=== PATIENT | male | born 1975 | race Caucasian/White ===

== ENCOUNTER 2024-10-26 11:08 | Inpatient (IN) | payer OTHER, SELFPAY ==
[2024-10-26] VITALS (35 sets, daily range): BP systolic 137–208; BP diastolic 88–129; PULSE 74–110; TEMP 36.4–37.2; O2SAT 83–97; BMI 42.5; BMI 40.0
--- NOTE | 2024-10-26 11:32 | ECG_ITS ---
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
--- NOTE | 2024-10-26 11:32 | XR_ITS ---
The [place] [id number] Patient Name: AUBRIE SWEENEY MRN: [id number] date: 1975 Sex: M Assigned Patient Location: ER Current Patient Location: ER Accession/Order Number: [id number] Exam Date: 10/26/2024 11:56 Report Date: 10/26/2024 12:10 At the request of: JT SHERMAN Procedure: XR chest 1V EXAMINATION: XR chest 1V HISTORY: SOB, poss CHF COMPARISON: No relevant comparison available. FINDINGS: LUNGS: Underexpanded lungs with mild haziness within lateral lung bases. VASCULATURE: No increased pulmonary vasculature. PLEURA: No pneumothorax, effusion, or pleural thickening. CARDIAC: Mild cardiomegaly. MEDIASTINUM: No visible mass or adenopathy. BONES: No fracture or visible bone lesion. OTHER: Negative. XR/XR chest 1V IMPRESSION: 1. Mild bibasilar infiltrates versus atelectasis. Electronically authenticated by: DANICA HADDAD Date: 10/26/2024 12:10
--- NOTE | 2024-10-26 11:34 | ED.GENADUL1 ---
HPI HPI - General Adult General Chief complaint: Shortness of Breath/Dyspnea Stated complaint: HIP PAIN SOB Time Seen by Provider: 10/26/24 11:27 Source: patient Mode of arrival: Wheelchair Limitations: no limitations History of Present Illness HPI narrative: 49-year-old male presents for shortness of breath and swelling in his legs and abdomen and face. This has been progressive over what appears to be several weeks and it has been more than 20 years since he seen a physician. He has not had a fever or productive cough. He has noticed a great deal of weight gain and he gets short of breath with exertion. He is worried about heart failure. He is not complaining of chest pain. Related Data Home Medications ?Medication ?Instructions ?Recorded ?Confirmed No Known Home Medications 10/26/24 10/26/24 Allergies Allergy/AdvReac Type Severity Reaction Status Date / Time No Known Drug Allergies Allergy Verified 10/26/24 11:16 Opioid HPI Opioid Management Most Recent Opioid Data: No Data to Display Review of Systems ROS Narrative A ten point review of systems is negative except as noted above. Exam Narrative Exam Narrative: Nurses note and vital signs reviewed and patient is not hypoxic. General: The patient appear in no apparent distress. Skin: Warm, dry, no pallor noted. There is no rash noted. Head: Normocephalic, atraumatic Eye: Normal conjunctiva, no drainage, edema below each eye Ears, Nose, Mouth, and Throat: oral mucosa is moist. Nares patent. Cardiovascular: Regular Rate and Rhythm Respiratory: He appears dyspneic and has no rales or rhonchi noted Back: non-tender GI: Globus, edematous Musculoskeletal: Bilateral lower extremity edema. Neurological: A&O, normal speech Psychiatric: Cooperative Constitutional Vital Signs, click to edit/add: Last Vital Signs Temp 99.0 F 10/26/24 11:16 Pulse 74 10/26/24 13:00 Resp 36 H 10/26/24 13:00 BP 156/107 H 10/26/24 13:00 Pulse Ox 96 10/26/24 12:46 O2 Del Method Nasal Cannula 10/26/24 11:52 O2 Flow Rate 4 10/26/24 11:52 Course Vital Signs Vital signs: Vital Signs Temperature 99.0 F 10/26/24 11:16 Pulse Rate 98 H 10/26/24 11:16 Respiratory Rate 24 H 10/26/24 11:16 Blood Pressure 196/116 H 10/26/24 11:16 Pulse Oximetry 83 L 10/26/24 11:16 Oxygen Delivery Method Room Air 10/26/24 11:16 Temperature 99.0 F 10/26/24 11:16 Pulse Rate 74 10/26/24 13:00 Respiratory Rate 36 H 10/26/24 13:00 Blood Pressure 156/107 H 10/26/24 13:00 Pulse Oximetry 96 10/26/24 12:46 Oxygen Delivery Method Nasal Cannula 10/26/24 11:52 Oxygen Delivery Flow Rate 4 10/26/24 11:52 Medical Decision Making MDM Narrative Medical decision making narrative: My clinical impression is that he has CHF. He has significant edema in his legs and his abdominal wall. He will be admitted. Initial troponin was 108, the repeat is 121. BNP is elevated. I have spoken to Dr. Zavala and the plan is for a Bumex drip. Treatment diagnosis and disposition were discussed with the patient. The patient's blood pressure was also elevated here and he was given IV labetalol. Differential Diagnosis Differential Diagnosis: CHF, pulmonary edema, acute kidney injury Lab Data Lab results reviewed: Yes I reviewed the patient's lab results Labs: Lab Results 10/26/24 10/26/24 Range/Units 11:45 12:52 WBC 8.6 (4.0-11.0) 10^3/uL RBC 4.43 L (4.70-6.10) 10^6/uL Hgb 13.9 L (14.0-18.0) g/dL Hct 44.9 (42.0-54.0) % MCV 101.4 H (80.0-94.0) fL MCH 31.4 (25.9-34.0) pg MCHC 31.0 (29.9-35.2) g/dL RDW 12.5 (11.0-15.0) % Plt Count 356 (150-450) 10^3/uL MPV 9.8 (9.5-13.5) fL Neut % (Auto) 75.7 H (43.0-75.0) % Lymph % (Auto) 12.8 L (20.5-60.0) % [place] % (Auto) 9.1 (1.7-12.0) % Eos % (Auto) 1.4 (0.9-7.0) % Baso % (Auto) 0.8 (0.2-2.0) % Neut # (Auto) 6.5 (1.4-6.5) 10^3/uL Lymph # (Auto) 1.1 L (1.2-3.8) 10^3/uL [place] # (Auto) 0.8 (0.3-0.8) 10^3/uL Eos # (Auto) 0.1 (0.0-0.7) 10^3/uL Baso # (Auto) 0.1 (0.0-0.1) 10^3/uL Abs Immat Gran (auto) 0.02 (0.00-0.03) 10^3/uL Imm/Tot Granulo (auto) 0.2 (0.0-0.5) % Sodium 139 (136-145) mmol/L Potassium 4.1 (3.5-5.1) mmol/L Chloride 100 (98-107) mmol/L Carbon Dioxide 36.3 H (21.0-32.0) mmol/L Anion Gap 6.8 BUN 20.0 H (7.0-18.0) mg/dL Creatinine 1.03 (0.70-1.30) mg/dL Est GFR ( Amer) >60 (>=60 mL/min/1.73m^2) Est GFR (Non-Af Amer) >60 (>=60 mL/min/1.73m^2) BUN/Creatinine Ratio 19.4 Glucose 100 (74-106) mg/dL Calcium 8.7 (8.5-10.1) mg/dL Total Bilirubin 0.4 (0.2-1.0) mg/dL Direct Bilirubin 0.1 (0.0-0.2) mg/dL AST 30 (15-37) U/L ALT 36 (16-63) U/L Alkaline Phosphatase 126 H (46-116) U/L Troponin I High Sens 108.6 H* 121.3 H* (4.0-76.1) pg/mL NT-Pro-B Natriuret Pep 7797.0 H* (<=900.0) pg/mL Total Protein 7.3 (6.4-8.2) g/dL Albumin 3.4 (3.4-5.0) g/dL Globulin 3.9 g/dL Albumin/Globulin Ratio 0.9 Imaging Data Chest x-ray: Radiologist's impression: ITS Impressions Chest X-Ray 10/26/24 11:32 IMPRESSION: 1. Mild bibasilar infiltrates versus atelectasis. Electronically authenticated by: DANICA HADDAD Date: 10/26/2024 12:10 ECG Data Attestation: I personally reviewed and interpreted this ECG as follows: (EKG on my interpretation shows normal sinus rhythm without acute change and a rate of 85) Critical Care Time Critical Care Time Critical Care Time: Yes Total Critical Care Time: 35 Attestation: Due to the high probability of sudden and clinically significant deterioration in the patient's condition he/she required the highest level of my preparedness to intervene urgently I provided critical care time including documentation time, medication orders and management, reevaluation, vital sign assessment, ordering and reviewing of lab tests, ordering and reviewing of x-ray studies, and admission orders. Aggregate critical care time is 35 minutes including only time during which I was engaged in work directly related to his/her care and did not include time spent treating other patients simultaneously. Discharge Plan Discharge Chief Complaint: Shortness of Breath/Dyspnea Clinical Impression: Congestive heart failure Patient Disposition: Admitted As Inpatient Time of Disposition Decision: 13:23 Condition: Fair
--- NOTE | 2024-10-26 11:53 | PC.NURSE ---
oxygen started after finding pt oxygen levels in the 80's
[2024-10-26 12:04] LABS: Basophils Absolute Auto 0.1 10^3/uL (0.0-0.1); Basophils Percent Auto 0.8 % (0.2-2.0); Eosinophils Absolute Auto 0.1 10^3/uL (0.0-0.7); Eosinophils Percent Auto 1.4 % (0.9-7.0); Hematocrit 44.9 % (42.0-54.0); Hemoglobin 13.9 g/dL (14.0-18.0); Immature Granulocytes Abs Auto 0.02 10^3/uL (0.00-0.03); Immature Granulocytes Pct Auto 0.2 % (0.0-0.5); Lymphocytes Absolute Auto 1.1 10^3/uL (1.2-3.8); Lymphocytes Percent Auto 12.8 % (20.5-60.0); Mean Corpuscular Hemoglobin 31.4 pg (25.9-34.0); Mean Corpuscular Volume 101.4 fL (80.0-94.0); Mean Platelet Volume 9.8 fL (9.5-13.5); Monocytes Absolute Auto 0.8 10^3/uL (0.3-0.8); Monocytes Percent Auto 9.1 % (1.7-12.0); Neutrophils Absolute Auto 6.5 10^3/uL (1.4-6.5); Neutrophils Percent Auto 75.7 % (43.0-75.0); Platelet Count 356 10^3/uL (150-450); Red Blood Count 4.43 10^6/uL (4.70-6.10); Red Cell Distribution Width 12.5 % (11.0-15.0); White Blood Count 8.6 10^3/uL (4.0-11.0)
[2024-10-26 12:19] LABS: Anion Gap 6.8; BUN Creatinine Ratio 19.4; Calcium 8.7 mg/dL (8.5-10.1); Carbon Dioxide 36.3 mmol/L (21.0-32.0); Chloride 100 mmol/L (98-107); Estimated GFR (African America >60 (>=60 mL/min/1.73m^2); Estimated GFR (Non-African Ame >60 (>=60 mL/min/1.73m^2); Glucose 100 mg/dL (74-106); Potassium 4.1 mmol/L (3.5-5.1); Sodium 139 mmol/L (136-145)
[2024-10-26 12:26] LABS: Alanine Aminotransferase 36 U/L (16-63); Albumin Globulin Ratio 0.9; Albumin Level 3.4 g/dL (3.4-5.0); Alkaline Phosphatase 126 U/L (46-116); Aspartate Amino Transferase 30 U/L (15-37); Bilirubin Direct 0.1 mg/dL (0.0-0.2); Bilirubin Total 0.4 mg/dL (0.2-1.0); Globulin 3.9 g/dL; Total Protein 7.3 g/dL (6.4-8.2)
[2024-10-26 12:27] LABS: Troponin I High Sensitivity 108.6 pg/mL (4.0-76.1)
[2024-10-26] MEDS: ASPIRIN 81 MG TAB.CHEW 324 MG PO (12:50)
[2024-10-26] MEDS: LABETALOL HCL 20 MG/4 ML SYRINGE 10 MG IVP (12:51)
[2024-10-26 13:20] LABS: Troponin I High Sensitivity 121.3 pg/mL (4.0-76.1)
--- NOTE | 2024-10-26 13:43 | P.HP_ITS ---
HPI H&P: HPI History of Present Illness Chief complaint: HIP PAIN SOB Narrative: Patient with a long hand standing history of smoking but did quit fairly recently, has noticed over the last 30 days is increasing cough, shortness of breath, swelling, unable to lay flat, presented to the emergency room with acute combined congestive heart failure with a BNP of over 7000, mildly elevated high- sensitivity troponin may be related to his uncontrolled hypertension also on admission, severe hypoxia with O2 sat of 83% on room air And I saw patient in the emergency room, somewhat difficulty talking secondary conversational dyspnea. Diffuse swelling even to his eyelids. He states this is new over the last month Opioid HPI Opioid Management Most Recent Pain and Opioid Data: No Data to Display Review of Systems ROS Status of ROS 10 or more systems reviewed and unremark able except as noted in history and below Meds Home Medications and Allergies Home Medications ?Medication ?Instructions ?Recorded ?Confirmed ?Type No Known Home Medications 10/26/24 10/26/24 History Allergies Allergy/AdvReac Type Severity Reaction Status Date / Time No Known Drug Allergies Allergy Verified 10/26/24 11:16 Exam Constitutional Vital Signs, click to edit/add: Last Vital Signs Temp 99.0 F 10/26/24 11:16 Pulse 86 10/26/24 13:20 Resp 22 H 10/26/24 13:16 BP 157/93 H 10/26/24 13:16 Pulse Ox 95 10/26/24 13:30 O2 Del Method Nasal Cannula 10/26/24 11:52 O2 Flow Rate 4 10/26/24 11:52 Documenting provider has reviewed patient's vital signs: yes Common normals: apparent distress (Moderate respiratory distress) Chest Common normals: inspection of chest normal Respiratory Common normals: abnormal respiratory effort (Moderate respiratory distress) Auscultation: rales, rhonchi and diminished lung sounds Cardio Common normals: regular rhythm; irregular rate Rate: tachycardic GI Common normals: negative for Normal to inspection, nondistended, normoactive bowel sounds present (Morbidly obese) Extremity Common normals: abnormal to inspection (3-4+ swelling bilateral lower ex tremities) Results Labs Labs: Short CBC 10/26/24 Range/Units 11:45 WBC 8.6 (4.0-11.0) 10^3/uL Hgb 13.9 L (14.0-18.0) g/dL Hct 44.9 (42.0-54.0) % Plt Count 356 (150-450) 10^3/uL BMP 10/26/24 11:45 Sodium 139 Potassium 4.1 Chloride 100 Carbon Dioxide 36.3 H BUN 20.0 H Creatinine 1.03 Glucose 100 Calcium 8.7 Liver Function 10/26/24 Range/Units 11:45 Total Bilirubin 0.4 (0.2-1.0) mg/dL Direct Bilirubin 0.1 (0.0-0.2) mg/dL AST 30 (15-37) U/L ALT 36 (16-63) U/L Alkaline Phosphatase 126 H (46-116) U/L Albumin 3.4 (3.4-5.0) g/dL Assessment and Plan Assessment and Plan (1) Congestive heart failure: (2) Hypertensive urgency: (3) Acute exacerbation of COPD with asthma: Plan Admission findings: Respiratory distress, sinus tachycardia, hypertensive urgency, acute hypoxia with O2 sat of 83% secondary to acute combined congestive heart failure. Patient also describes cough productive of sputum be consistent with acute exacerbation of COPD Acute combined congestive heart failure-check echocardiogram, check thyroid levels, urinalysis. Track and trend high-sensitivity troponins, Bumex drip for today, plan based on effectiveness and evaluation on echo Acute exacerbation of COPD with elevated pCO2 and cough with sputum production, white blood cell count normal but left shift consistent with bacterial vozdpij-b-oeg consistent with bilateral lower lobe infiltrate although that may be more the fluid from his acute combined congestive heart failure as well. Start patient on antibiotics, steroids, aerosol treatments. Elevated BUN consistent with mild dehydration-holding off on fluid resuscitation as above, Iron deficiency [id number] daily, may be dilutional effect secondary to the acute combined congestive heart failure Elevated alkaline phosphatase-this may be passive congestion from the acute co mbined congestive heart failure versus remote history of alcohol abuse Admission status: Patient with severe hypoxemia is related to acute combined congestive heart failure and complicated by acute exacerbation of COPD, medically necessary treatment will span 2 midnights. Inpatient status
[2024-10-26 14:21] LABS: Thyroid Stimulating Hormone 1.359 uIU/mL (0.358-3.740)
[2024-10-26] MEDS: IPRATROPIUM/ALBUTEROL SULFATE 3 ML AMPUL.NEB IH ×2 (16:08→22:04)
[2024-10-26 16:24] LABS: Troponin I High Sensitivity 111.5 pg/mL (4.0-76.1)
[2024-10-26] MEDS: BUMETANIDE 10 MG in 0.9 % SODIUM CHLORIDE 160 ML 20 MG IV (16:27)
[2024-10-26] MEDS: LEVOFLOXACIN IN DEXTROSE 5 % 750 MG/150 ML PREMIX 100 MG IV (16:28)
[2024-10-26] MEDS: METHYLPREDNISOLONE SOD SUCC PF 125 MG/2 ML VIAL IVP ×2 (17:02→23:42)
[2024-10-26] MEDS: HYDRALAZINE HCL 20 MG/ML VIAL 10 MG IVP (17:02)
[2024-10-26] MEDS: ENOXAPARIN SODIUM 40 MG/0.4 ML SYRINGE SUBQ (17:03)
[2024-10-26 17:26] LABS: Bilirubin Urine NEGATIVE (NEGATIVE); Blood Urine NEGATIVE (NEGATIVE); Clarity Urine CLEAR (CLEAR); Color Urine DK. YELLOW (YELLOW); Glucose Urine UA NEGATIVE (NEGATIVE); Ketones Urine NEGATIVE (NEGATIVE); Leukocyte Esterase Urine NEGATIVE (NEGATIVE); Nitrite Urine NEGATIVE (NEGATIVE); Protein Urine >=300 mg/dL (NEG/TRACE); Specific Gravity Urine >=1.030 (1.005-1.025)
[2024-10-26 18:04] LABS: Bacteria Urine TRACE #/HPF (NONE SEEN); Crystals Seen? None Seen #/HPF (None Seen); Mucus Urine NONE SEEN (NONE SEEN); RBC Urine NONE SEEN #/HPF (0-2); Squamous Epithelial Cell Urine FEW #/LPF (NONE/RARE); WBC Urine NONE SEEN #/HPF (NONE SEEN)
[2024-10-26 18:05] LABS: Renal Epithelial Cells Urine FEW #/LPF (NONE SEEN)
[2024-10-26 18:19] LABS: Urine Culture Indicated NO
[2024-10-26 18:20] LABS: Cast Seen? SEEN #/LPF (NONE SEEN)
[2024-10-26] MEDS: METOPROLOL TARTRATE 50 MG TABLET PO (21:01)
[2024-10-27] VITALS (23 sets, daily range): BP systolic 110–153; BP diastolic 54–87; PULSE 78–96; TEMP 36.7–37.4; O2SAT 88–96
[2024-10-27 05:18] LABS: Hematocrit 44.6 % (42.0-54.0); Hemoglobin 14.2 g/dL (14.0-18.0); Mean Corpuscular HGB Conc 31.8 g/dL (29.9-35.2); Mean Corpuscular Hemoglobin 31.3 pg (25.9-34.0); Mean Corpuscular Volume 98.2 fL (80.0-94.0); Mean Platelet Volume 9.9 fL (9.5-13.5); Platelet Count 425 10^3/uL (150-450); Red Blood Count 4.54 10^6/uL (4.70-6.10); Red Cell Distribution Width 12.2 % (11.0-15.0); White Blood Count 7.4 10^3/uL (4.0-11.0)
[2024-10-27] MEDS: METHYLPREDNISOLONE SOD SUCC PF 125 MG/2 ML VIAL IVP ×4 (05:20→23:01)
[2024-10-27] MEDS: IPRATROPIUM/ALBUTEROL SULFATE 3 ML AMPUL.NEB IH ×4 (05:20→22:03)
[2024-10-27 05:47] LABS: BUN Creatinine Ratio 18.5; Calcium 8.8 mg/dL (8.5-10.1); Carbon Dioxide 42.3 mmol/L (21.0-32.0); Chloride 97 mmol/L (98-107); Estimated GFR (African America >60 (>=60 mL/min/1.73m^2); Estimated GFR (Non-African Ame >60 (>=60 mL/min/1.73m^2); Glucose 155 mg/dL (74-106); Potassium 3.3 mmol/L (3.5-5.1); Sodium 141 mmol/L (136-145); Troponin I High Sensitivity 72.4 pg/mL (4.0-76.1)
[2024-10-27 05:50] LABS: Anisocytosis 2+; Atypical Lymphocytes Abs Man 0.14; Hypochromasia 2+; Lymphocytes Absolute Manual 0.14 10^3/uL (1.20-3.80); Monocytes Absolute Manual 0.07 10^3/uL (0.30-0.80)
--- NOTE | 2024-10-27 07:00 | CA_ITS ---
Patient Name: AUBRIE SWEENEY MR#: [id number] : 1975 Exam Date: 10/27/2024 Ordering Doctor: DR Mike Zavala . ECHOCARDIOGRAM REPORT PROCEDURE: CA ECHO DOPPLER COMPLETE INDICATIONS: Dyspnea COMPARISON: None. DESCRIPTION: COMPLETE ECHOCARDIOGRAM Real-time transthoracic echocardiography with 2D, M-mode, spectral and color flow Doppler performed. QUALITY: Technical quality was good. LEFT VENTRICLE: Normal chamber size. Mild concentric left ventricular hypertrophy. Systolic function is hyperdynamic. D-shaped left ventricle due to right ventricular volume versus pressure overload. LV EF: Visual estimation of left ventricular ejection fraction is hyperdynamic at 70-75%. DIASTOLIC: ATRIAL SEPTUM: LEFT ATRIUM: Mild dilatation. RIGHT ATRIUM: Severe dilatation. RIGHT VENTRICLE: Severe dilatation. Reduced right ventricular systolic function. TRICUSPID VALVE: Normal mobility and thickness. No stenosis with moderate regurgitation. Severe pulmonary hypertension. RVSP 104 mmHg MITRAL VALVE: Normal mobility and thickness. No evidence of mitral valve stenosis. There is no mitral annular calcification. Trivial mitral regurgitation. AORTIC VALVE: Normal trileaflet appearance. No visible sclerosis. Normal leaflet mobility. No evidence of aortic valve stenosis. No aortic regurgitation. AORTIC ROOT: Normal diameter and appearance. PULMONIC VALVE: Normal thickness and mobility. No stenosis. Trivial regurgitation. PERICARDIUM: Trivial pericardial effusion. IVC: Moderate dilatation. Measuring 2.8 cm with no collapse. PLEURA: CONCLUSION: 1. Microcytic ventricular hypertrophy with hyperdynamic systolic function. Estimated LVEF is 70 to 75%. 2. Severely dilated right ventricle with reduced systolic function. 3. Severe right atrial dilatation. 4. Moderate tricuspid regurgitation. 5. Severely elevated right-sided pressures. RVSP is estimated at 104 mmHg. 6. Trivial pericardial effusion. Adult Echocardiography Procedure Report Left Ventricle LVEDD (3.7 - 5.6 cm): 4.59 cm LVESD (2.2 - 4.0 cm): 2.44 cm LVIVS thickness (0.6 - 1.2 cm): 1.18 cm LVPW thickness (0.5 - 1.0 cm): 1.34 cm e': 0.08 m/s E - e': 9.95 LVOT Max Gradient: 8.57 mm[Hg] LVOT Area (cm2): 1.46 m/s Peak Velocity (LVOT): 1.46 m/s Mean Velocity (LVOT): 0.93 m/s LVOT Diameter 2.11 cm Left Atrium Left Atrium Systolic Dimension: 4.59 cm Mitral Valve MV E to A Ratio: 1.07 Mitral Valve A-Wave Peak Velocity: 0.78 m/s Mitral Valve E-Wave Peak Velocity: 0.84 m/s Right Ventricle RV Internal Diastolic Dimension: 5.69 cm Aorta AO Root Diam: 3.01 cm Ascending Ao Diam: 3.41 cm Aortic Valve AoV Area (Peak Pierre): 2.36 cm2, 2.36 cm2 AoV Area (VTI): 2.63 cm2, 2.63 cm2 Peak Velocity(Antegrade Flow): 2.17 m/s Peak Gradient(Antegrade Flow): 18.89 mm[Hg] Mean Velocity(Antegrade Flow): 1.12 m/s Mean Gradient(Antegrade Flow): 6.52 mm[Hg] Velocity Time Integral: 32.06 cm Tricuspid Valve Peak Velocity (Regurgitant Flow): 3.43 m/s, 3.86 m/s, 4.52 m/s, 4.72 m/s Pulmonic Valve Mean Gradient: 3.87 mm[Hg], 2.97 mm[Hg] Mean Velocity: 0.94 m/s, 0.82 m/s Peak Velocity: 1.21 m/s Peak Gradient: 6.86 mm[Hg], 4.98 mm[Hg] Right Atrium Right Atrium Systolic Pressure: 208.96 ml, 208.96 ml Dictated by: David Lopez M.D. on 10/27/2024 at 10:55 Approved by: David Lopez M.D. on 10/27/2024 at 10:58
[2024-10-27] MEDS: POTASSIUM CHLORIDE 10 MEQ ER TABLET 20 MEQ PO ×2 (08:49→20:52)
[2024-10-27] MEDS: METOPROLOL TARTRATE 50 MG TABLET PO ×2 (08:49→20:52)
[2024-10-27] MEDS: BUMETANIDE 10 MG in 0.9 % SODIUM CHLORIDE 160 ML 20 MG IV (08:49)
[2024-10-27] MEDS: ISOSORBIDE MONONITRATE 30 MG TAB.ER.24H PO (08:49)
--- NOTE | 2024-10-27 08:52 | P.PN_ITS ---
Progress Note: Subjective Subjective Interval history: Patient does note less facial swelling especially his eyelids. Exam Constitutional Vital Signs, click to edit/add: Last Vital Signs Temp 98.3 F 10/27/24 07:43 Pulse 96 H 10/27/24 07:55 Resp 18 10/27/24 07:43 BP 153/87 H 10/27/24 07:43 Pulse Ox 93 L 10/27/24 07:43 O2 Del Method Nasal Cannula 10/27/24 07:43 O2 Flow Rate 3 10/27/24 07:43 Documenting provider has reviewed patient's vital signs: yes Common normals: apparent distress (Moderate respiratory distress) Chest Common normals: inspection of chest normal Respiratory Common normals: abnormal respiratory effort (Moderate respiratory distress) Auscultation: rales, rhonchi and diminished lung sounds Cardio Common normals: regular rhythm; irregular rate Rate: tachycardic GI Common normals: negative for Normal to inspection, nondistended, normoactive bowel sounds present (Morbidly obese) Extremity Common normals: abnormal to inspection (3+ swelling bilateral lower extremities, sores on feet bilaterally) Progress Note: Objective Labs Labs: Short CBC 10/26/24 10/27/24 Range/Units 11:45 04:48 WBC 8.6 7.4 (4.0-11.0) 10^3/uL Hgb 13.9 L 14.2 (14.0-18.0) g/dL Hct 44.9 44.6 (42.0-54.0) % Plt Count 356 425 (150-450) 10^3/uL BMP 10/26/24 10/27/24 11:45 04:48 Sodium 139 141 Potassium 4.1 3.3 L Chloride 100 97 L Carbon Dioxide 36.3 H 42.3 H BUN 20.0 H 20.0 H Creatinine 1.03 1.08 Glucose 100 155 H Calcium 8.7 8.8 Liver Function 10/26/24 Range/Units 11:45 Total Bilirubin 0.4 (0.2-1.0) mg/dL Direct Bilirubin 0.1 (0.0-0.2) mg/dL AST 30 (15-37) U/L ALT 36 (16-63) U/L Alkaline Phosphatase 126 H (46-116) U/L Albumin 3.4 (3.4-5.0) g/dL Urine 10/26/24 Range/Units 17:08 Urine Color Dk. yellow (YELLOW) Urine Clarity Clear (CLEAR) Urine pH 6.0 (5.0-9.0) Ur Specific [place] >=1.030 A (1.005-1.025) Urine Protein >=300 A (NEG/TRACE) mg/dL Urine Glucose (UA) Negative (NEGATIVE) mg/dL Progress Note: A&P Assessment and Plan (1) Congestive heart failure: (2) Hypertensive urgency: (3) Acute exacerbation of COPD with asthma: Plan Admission findings: Respiratory distress, sinus tachycardia, hypertensive urgency, acute hypoxia with O2 sat of 83% secondary to acute combined congestive heart failure. Patient also describes cough productive of sputum be consistent with acute exacerbation of COPD Acute combined congestive heart failure-excellent diuresis yesterday with Bumex drip, 11 L, repeat Bumex drip again today, maintain beta-blockers and nitrates, check on echocardiogram Acute exacerbation of COPD with elevated pCO2 and cough with sputum production, white blood cell count normal but left shift consistent with bacterial whiwdws-s-xep consistent with bilateral lower lobe infiltrate although that may be more the fluid from his acute combined congestive heart failure as well. Start patient on antibiotics, steroids, aerosol treatments. Maintain current treatment Elevated BUN consistent with mild dehydration-holding off on fluid resuscitation as above, stable despite excellent diuresis Iron deficiency ldwqvs-dflw-stteji daily, may be dilutional effect secondary to the acute combined congestive heart failure Elevated alkaline phosphatase-this may be passive congestion from the acute combined congestive heart failure versus remote history of alcohol abuse Admission status: Patient with severe hypoxemia is related to acute combined congestive heart failure and complicated by acute exacerbation of COPD, medically necessary treatment will span 2 midnights. Inpatient status ?
--- NOTE | 2024-10-27 09:29 | CM.NOTE ---
Rounds made with Dr. Zavala, no discharge today. Continue diuresing, swelling is better today. Discussed diagnosis and plan of care with pt.
--- NOTE | 2024-10-27 10:11 | RESP.RT ---
increased to % LPM & humidification added.
[2024-10-27] MEDS: ACETAMINOPHEN 500 MG TABLET 1000 MG PO (10:46)
--- NOTE | 2024-10-27 10:59 | XR_ITS ---
The [address] [address] Patient Name: AUBRIE SWEENEY MRN: [id number] date: 1975 Sex: M Assigned Patient Location: [place] Current Patient Location: [place] Accession/Order Number: [id number] Exam Date: 10/27/2024 11:18 Report Date: 10/27/2024 11:43 At the request of: CALLUM WEINSTEIN Procedure: XR foot ABENA min 3V EXAMINATION: XR foot ABENA min 3V HISTORY: possible osteo COMPARISON: No relevant comparison available. FINDINGS: RIGHT FINDINGS: BONES: No acute fracture or dislocation. Moderate to severe degenerative changes with partial bony collapse of the midfoot. Fusion hardware first second and third phalanges. Likely remote healed fracture of the third metatarsal. SOFT TISSUES: Negative. No visible soft tissue swelling. OTHER: Negative. LEFT FINDINGS: BONES: No acute fracture or dislocation. Moderate to severe degenerative changes with partial collapse of the distal midfoot. Fusion across the first second and third phalanges. SOFT TISSUES: Negative. No visible soft tissue swelling. OTHER: Negative. XR/XR foot ABEAN min 3V IMPRESSION: Degenerative and postsurgical changes No plain film evidence of osteomyelitis Electronically authenticated by: NAKUL AHUJA Date: 10/27/2024 11:43
--- NOTE | 2024-10-27 13:22 | SWNOTE1 ---
SW reviewed therapy notes and a walker or cane was recommended. SW to speak with pt.
--- NOTE | 2024-10-27 13:23 | PM.CN ---
Consult Note: [facility] Data of Consult Consult date: 10/27/24 Requesting Physician: Mike Zavala MD Primary Care Provider: YENY VELÁSQUEZ Consult Narrative Reason for consult: Bilateral foot issue, possible ulceration Narrative: Patient is a 49-year-old male with congestive heart failure and acute exacerbation of COPD. Upon admission for these issues he was noted that he had lesions on bilateral feet. Patient also relates to elongated toenails that he has difficulty trimming on his own. He relates to previously seeing a donor relations manager in [place] but cannot remember the last time he was seen. He relates that he has been performing self-care which he has had difficulty maintaining. He relates to previous ulceration on his left foot years ago. He denies foot pain or infection. cc:: CC: Mike Zavala MD Review of Systems ROS Narrative Patient relates to shortness of breath and cough. Patient denies nausea, vomiting, fever, chills, calf pain Status of ROS 10 or more systems reviewed and unremarkable except as noted in history and below PFSH PFS Social History Highest level of school completed/degree received: Associate degree: occupational, technical, vocational program Little interest or pleasure in doing things: not at all Feeling down, depressed, or hopeless: not at all Meds Home Medications and Allergies Home Medications ?Medication ?Instructions ?Recorded ?Confirmed ?Type No Known Home Medications 10/26/24 10/26/24 History Allergies Allergy/AdvReac Type Severity Reaction Status Date / Time No Known Drug Allergies Allergy Verified 10/26/24 11:16 Exam Narrative Exam Narrative: Skin: Nails are thickened, dystrophic x 10. Hyperkeratotic lesion noted bilateral plantar fifth metatarsal head with subdermal bleeding. No signs of infection Vascular: Dorsalis pedis and posterior tibial pulses are nonpalpable which may be secondary to swelling. Absent digital hair growth Neuro: Protective and vibratory sensation are diminished Musculoskeletal: Patient is able to fire all major muscle groups without limitation or pain. No significant deformity Constitutional Vital Signs, click to edit/add: Last Vital Signs Temp 98.0 F 10/27/24 12:08 Pulse 85 10/27/24 12:08 Resp 18 10/27/24 12:08 BP 110/54 10/27/24 12:08 Pulse Ox 91 L 10/27/24 12:08 O2 Del Method Nasal Cannula 10/27/24 12:08 O2 Flow Rate 3 10/27/24 12:08 Results Labs Labs: Short CBC 10/27/24 Range/Units 04:48 WBC 7.4 (4.0-11.0) 10^3/uL Hgb 14.2 (14.0-18.0) g/dL Hct 44.6 (42.0-54.0) % Plt Count 425 (150-450) 10^3/uL BMP 10/27/24 04:48 Sodium 141 Potassium 3.3 L Chloride 97 L Carbon Dioxide 42.3 H BUN 20.0 H Creatinine 1.08 Glucose 155 H Calcium 8.8 Urine 10/26/24 Range/Units 17:08 Urine Color Dk. yellow (YELLOW) Urine Clarity Clear (CLEAR) Urine pH 6.0 (5.0-9.0) Ur Specific [place] >=1.030 A (1.005-1.025) Urine Protein >=300 A (NEG/TRACE) mg/dL Urine Glucose (UA) Negative (NEGATIVE) mg/dL Assessment and Plan Assessment and Plan (1) Congestive heart failure: (2) Hypertensive urgency: (3) Acute exacerbation of COPD with asthma: (4) Pre-ulcerative calluses: Plan Patient seen and evaluated. Patient education provided and all questions answered to his satisfaction. The hyperkeratotic lesions on bilateral plantar feet were trimmed without incident to patient satisfaction using a 15 blade. Findings are consistent with preulcerative calluses which should be covered with a Band-Aid. He also has onychomycosis which can be managed as an outpatient. He may follow-up with me in wound center for further evaluation and treatment within 1 to 2 weeks of discharge Will sign off at this time but please call with any updates or changes in patient's status regarding his feet
--- NOTE | 2024-10-27 13:23 | SWNOTE1 ---
No further recommendations from therapy except walker/cane.
--- NOTE | 2024-10-27 14:20 | SWNOTE1 ---
SW met with pt to discuss walker/cane need. Also to discuss insurance. Pt did talk to his employer and they have told pt that it is there error with insurance and they are getting active. He told them that the earliest it would be completed would be October 31. SW let him know that SW can usually get pt DME through his insurance, but will not be able to until he is active. Pt voiced understanding. He stated he does not really think he will need one. SW advised pt that he can look at [employer], [employer], or on [employer] and find one for fairly cheap. Pt voiced understanding. At this time pt has no further needs. SW did update case management in regards to insurance.
[2024-10-27] MEDS: LEVOFLOXACIN IN DEXTROSE 5 % 750 MG/150 ML PREMIX 150 MG IV (16:19)
[2024-10-27] MEDS: ENOXAPARIN SODIUM 40 MG/0.4 ML SYRINGE SUBQ (16:19)
--- NOTE | 2024-10-27 17:47 | PM.CACN ---
History of Present Illness History of Present Illness Consult date: 10/27/24 Requesting physician: Mike Zavala Consult reason: congestive heart failure Chief complaint: HIP PAIN SOB, CHF Narrative: 49yr old with singificant tobacco use history who recently quit and has not been seen by any cardiogy service presented to ED with increasing shortness of breath and orthopnea and associated weight gain and swelling of his feet. This has been progressive over 30days with increasing cough. In the ED his work up revealed no ischemia on EKG but his BNP was elevated and so he was admitted for HF management. He was also noted to have a high PCO2 level and so O2 waa given and this resulted in improvement. ir Serial trop have been stable and with diuresis his BNP is trending down and with diuressi he is net 11L negative. His ECHO is evident for pulm HTN with RVSP >100mmHg. Review of Systems ROS Narrative Patient relates to shortness of breath and cough. Patient denies nausea, vomiting, fever, chills, calf pain Status of ROS 10 or more systems reviewed and unremarkable except as noted in history and below PFSH [facility] Social History Highest level of school completed/degree received: Associate degree: occupational, technical, vocational program Little interest or pleasure in doing things: not at all Feeling down, depressed, or hopeless: not at all Meds Home Medications and Allergies Home Medications ?Medication ?Instructions ?Recorded ?Confirmed ?Type No Known Home Medications 10/26/24 10/26/24 History Allergies Allergy/AdvReac Type Severity Reaction Status Date / Time No Known Drug Allergies Allergy Verified 10/26/24 11:16 Exam Narrative Exam Narrative: Skin: Nails are thickened, dystrophic x 10. Hyperkeratotic lesion noted bilateral plantar fifth metatarsal head with subdermal bleeding. No signs of infection Vascular: Dorsalis pedis and posterior tibial pulses are nonpalpable which may be secondary to swelling. Absent digital hair growth Neuro: Protective and vibratory sensation are diminished Musculoskeletal: Patient is able to fire all major muscle groups without limitation or pain. No significant deformity Constitutional Vital Signs, click to edit/add: Last Vital Signs Temp 98.3 F 10/27/24 16:12 Pulse 90 10/27/24 16:15 Resp 18 10/27/24 16:12 BP 144/82 H 10/27/24 16:12 Pulse Ox 91 L 10/27/24 16:15 O2 Del Method Nasal Cannula 10/27/24 16:15 O2 Flow Rate 5 10/27/24 16:15 Results Labs and Meds Lab results: CBC 10/27/24 Range/Units 04:48 WBC 7.4 (4.0-11.0) 10^3/uL RBC 4.54 L (4.70-6.10) 10^6/uL Hgb 14.2 (14.0-18.0) g/dL Hct 44.6 (42.0-54.0) % Plt Count 425 (150-450) 10^3/uL Comprehensive Metabolic Panel 10/27/24 Range/Units 04:48 Sodium 141 (136-145) mmol/L Potassium 3.3 L (3.5-5.1) mmol/L Chloride 97 L (98-107) mmol/L Carbon Dioxide 42.3 H (21.0-32.0) mmol/L BUN 20.0 H (7.0-18.0) mg/dL Creatinine 1.08 (0.70-1.30) mg/dL Glucose 155 H (74-106) mg/dL Calcium 8.8 (8.5-10.1) mg/dL Intake and Output 10/27/24 10/27/24 10/27/24 07:59 15:59 23:59 Intake Total 700 / 1050 1200 / 1200 Output Total 3375 / 62327 1500 / 2700 1200 / 2700 Balance -2675 / -47469 -300 / -1500 -1200 / -1500 Intake: Oral 500 / 700 1200 / 1200 IV 200 / 350 Bumetanide 10 mg In 0.9 % 200 / 200 Sodium Chloride 160 ml @ 20 mls /hr IV ONCE ONE Rx#:[id number] Output: Urine 3375 / 93371 1500 / 2700 1200 / 2700 Other: Weight 120.1 kg Imaging and Cardiology Echo: report reviewed EKG Interpretation EKG: sinus rhythm Assessment and Plan Assessment and Plan (1) Congestive heart failure: Assessment and Plan: Pt is markedly fluid overloaded. There is a possibility he has HFpEF+RV failure jose roberto given his long tobaaco use. Ct diuresis and closely monitor lytes. When approaching euvolemia, pt will need right hear cath to estimate his pressures. Aim for net 2-3L negative/ day till euvolemia. (2) Pulmonary hypertension: Assessment and Plan: Adv right heart cath at the earliest. (3) Hypertensive urgency: Assessment and Plan: BP better controlled. Can use nitro drip if needed. If oral, can use Calcium channel blockers to facilitate vasodilation, given pulm HTN. (4) Acute exacerbation of COPD with asthma: Assessment and Plan: Ct steroids and brinchodilators aling with Abx. (5) Pre-ulcerative calluses: Plan Careful diuresis and monitor lytes. He will need pulm HTN evaluation. Will need daily follow up.
[2024-10-28] VITALS (69 sets, daily range): BP systolic 94–154; BP diastolic 62–101; PULSE 73–103; RESP 14; TEMP 36.2–37.1; O2SAT 79–98
[2024-10-28] MEDS: IPRATROPIUM/ALBUTEROL SULFATE 3 ML AMPUL.NEB IH ×4 (04:21→23:40)
[2024-10-28 05:27] LABS: Basophils Percent Auto 0.1 % (0.2-2.0); Eosinophils Percent Auto 0.1 % (0.9-7.0); Hematocrit 45.6 % (42.0-54.0); Hemoglobin 14.4 g/dL (14.0-18.0); Immature Granulocytes Abs Auto 0.04 10^3/uL (0.00-0.03); Immature Granulocytes Pct Auto 0.3 % (0.0-0.5); Lymphocytes Absolute Auto 0.5 10^3/uL (1.2-3.8); Mean Corpuscular HGB Conc 31.6 g/dL (29.9-35.2); Mean Corpuscular Hemoglobin 31.6 pg (25.9-34.0); Mean Platelet Volume 10.1 fL (9.5-13.5); Monocytes Absolute Auto 0.2 10^3/uL (0.3-0.8); Monocytes Percent Auto 1.6 % (1.7-12.0); Neutrophils Absolute Auto 12.3 10^3/uL (1.4-6.5); Neutrophils Percent Auto 93.9 % (43.0-75.0); Platelet Count 424 10^3/uL (150-450); Red Blood Count 4.56 10^6/uL (4.70-6.10); Red Cell Distribution Width 12.4 % (11.0-15.0); White Blood Count 13.1 10^3/uL (4.0-11.0)
[2024-10-28] MEDS: METHYLPREDNISOLONE SOD SUCC PF 125 MG/2 ML VIAL IVP (05:59)
[2024-10-28 06:00] LABS: Anion Gap 3.8; BUN Creatinine Ratio 40.2; Calcium 8.1 mg/dL (8.5-10.1); Carbon Dioxide 42.9 mmol/L (21.0-32.0); Chloride 97 mmol/L (98-107); Estimated GFR (African America >60 (>=60 mL/min/1.73m^2); Estimated GFR (Non-African Ame >60 (>=60 mL/min/1.73m^2); Glucose 171 mg/dL (74-106); Potassium 3.7 mmol/L (3.5-5.1); Sodium 140 mmol/L (136-145)
--- NOTE | 2024-10-28 08:39 | CM.NOTE ---
Rounds made with Dr. Zavala. Dr. Zavala reviews findings with Ifeanyi Tanmay and discusses Cardiology Consult as well. No plan for discharge today.
--- NOTE | 2024-10-28 08:42 | P.PN_ITS ---
Progress Note: Subjective Subjective Interval history: Patient states his feels about the same, does feel like his swelling is improved though Exam Constitutional Vital Signs, click to edit/add: Last Vital Signs Temp 97.2 F L 10/28/24 08:10 Pulse 81 10/28/24 08:10 Resp 18 10/28/24 05:21 BP 150/90 H 10/28/24 08:10 Pulse Ox 87 L 10/28/24 08:10 O2 Del Method Nasal Cannula 10/28/24 08:10 O2 Flow Rate 5 10/28/24 05:21 Documenting provider has reviewed patient's vital signs: yes Common normals: apparent distress (Moderate respiratory distress) Chest Common normals: inspection of chest normal Respiratory Common normals: abnormal respiratory effort (Moderate respiratory distress) Auscultation: rales (Sounds improved overall with better air exchange), rhonchi and diminished lung sounds Cardio Common normals: regular rhythm; irregular rate Rate: tachycardic GI Common normals: negative for Normal to inspection, nondistended, normoactive bowel sounds present (Morbidly obese) Extremity Common normals: abnormal to inspection (3+ swelling bilateral lower extremities, edema probably unchanged from prev) Progress Note: Objective Labs Labs: Short CBC 10/28/24 Range/Units 04:59 WBC 13.1 H (4.0-11.0) 10^3/uL Hgb 14.4 (14.0-18.0) g/dL Hct 45.6 (42.0-54.0) % Plt Count 424 (150-450) 10^3/uL BMP 10/28/24 04:59 Sodium 140 Potassium 3.7 Chloride 97 L Carbon Dioxide 42.9 H BUN 43.0 H Creatinine 1.07 Glucose 171 H Calcium 8.1 L Progress Note: A&P Assessment and Plan (1) Congestive heart failure: (2) Pulmonary hypertension: (3) Hypertensive urgency: (4) Acute exacerbation of COPD with asthma: (5) Pre-ulcerative calluses: Plan Admission findings: Respiratory distress, sinus tachycardia, hypertensive urgency, acute hypoxia with O2 sat of 83% secondary to acute combined congestive heart failure. Patient also describes cough productive of sputum be consistent with acute exacerbation of COPD Acute combined congestive heart failure-excellent diuresis yesterday with Bumex drip, so far total of 16 L diuresed with a net of 14, repeat Bumex drip over 20 hours this time Acute exacerbation of COPD with elevated pCO2 and cough with sputum production, white blood cell count normal but left shift consistent with bacterial gzwrawn-s-jej consistent with bilateral lower lobe infiltrate although that may be more the fluid from his acute combined congestive heart failure as well. Checking on sputum culture, repeat chest x-ray LVH-see cardiology recommendations Severe pulmonary hypertension-see cardiology recommendations Sleep apnea-O2 did desat at nighttime, will see how he does the rest of the day if improving, repeat chest x-ray also Elevated BUN consistent with mild dehydration-holding off on fluid resuscitation as above, stable despite excellent diuresis Iron deficiency fjixga-fxhz-oescxv daily, may be dilutional effect secondary to the acute combined congestive heart failure Elevated alkaline phosphatase-this may be passive congestion from the acute combined congestive heart failure versus remote history of alcohol abuse Admission status: Patient with severe hypoxemia is related to acute combined congestive heart failure and complicated by acute exacerbation of COPD, medically necessary treatment will span 2 midnights. Inpatient status ?
--- NOTE | 2024-10-28 08:43 | XR_ITS ---
The [address] [address] Patient Name: AUBRIE SWEENEY MRN: [id number] date: 1975 Sex: M Assigned Patient Location: MS Current Patient Location: MS Accession/Order Number: [id number] Exam Date: 10/28/2024 09:12 Report Date: 10/28/2024 09:42 At the request of: CALLUM WEINSTEIN Procedure: XR chest 2V EXAMINATION: XR chest 2V HISTORY: hypoxia COMPARISON: XR chest 10/26/2024 FINDINGS: LUNGS: Mild haziness throughout the lungs. Greater opacity within the lateral left mid and lower lung. Small opacities blunting the costophrenic angles bilaterally. VASCULATURE: No increased pulmonary vasculature. PLEURA: Possible pleural effusions. No pneumothorax. CARDIAC: No cardiomegaly or cardiac silhouette abnormality. MEDIASTINUM: No visible mass or adenopathy. BONES: No fracture or visible bone lesion. OTHER: Negative. XR/XR chest 2V IMPRESSION: 1. Mild diffuse haziness suggestive of pulmonary edema. 2. Greater opacity over lateral left mid and lower lung; pneumonia versus overlying soft tissue summation artifact. 3. Small pleural effusions cannot be excluded. 4. Findings have slightly increased compared to prior study. Electronically authenticated by: DANICA HADDAD Date: 10/28/2024 09:42
--- NOTE | 2024-10-28 08:56 | PT.DAILY ---
Physical Therapy Daily Note PT Daily Note/Assess Start: 10/28/24 08:50 Freq: Status: Active Protocol: Document 10/28/24 08:20 LUCIE (Rec: 10/28/24 08:56 LUCIE [id number]) Physical Therapy Daily Note/Assessment Time In/Time Out Time In 08:18 Time Out 08:42 Subjective Subjective Patient agreeable to walk. Reports L hip pain is most limiting factor. Therapeutic Activity Time Therapeutic Activity 13 Minutes (minutes) Therapeutic Activity 1 Units Therapeutic Activity Treatment Chair Transfer Standby Assistance Ability Therapeutic Activity Sit to stand 3x from EOB SBA. Patient has to make sure Comments L LE is out in front. Requires B UE support to push up into standing at RW. Gait 100'x2 with RW and SBA; required standing rest break due to fatigue. Patient on 4 L O2 with gait. SPO2 decreased to 82 percent with 3 minute recovery time for levels to increase to 90 percent. Neuromuscular Reeducation Neuromuscular 10 Reeducation Minutes (minutes) Neuromuscular 1 Reeducation Units Neuromuscular Dynamic reaching out of KATIE with SBA 1 UE support Reeducation required. Rhomberg EO/EC Dynamic fwd/retro stepping B UE support Total Physical Therapy Time Total Therapy 23 Minutes Total Physical 2 Therapy Units Summary Daily Note Summary Patient demonstrates improved ability with gait distance today, but does fatigue quickly with SPO2 levels dropping to 82 percent and then requiring 3 min of recovery time. Also demonstrated improved safety awareness with AD during ambulation and with transfers. Patient would benefit from RW or AD at DC along with OP PT to build endurance and strength for patient to return to work and ADL's.
[2024-10-28] MEDS: ISOSORBIDE MONONITRATE 30 MG TAB.ER.24H PO ×2 (09:39→12:43)
[2024-10-28] MEDS: POTASSIUM CHLORIDE 10 MEQ ER TABLET 20 MEQ PO ×2 (09:39→23:18)
[2024-10-28] MEDS: METOPROLOL TARTRATE 50 MG TABLET PO ×2 (09:39→23:21)
[2024-10-28] MEDS: BUMETANIDE 10 MG in 0.9 % SODIUM CHLORIDE 160 ML IV (09:39)
--- NOTE | 2024-10-28 10:34 | CT_ITS ---
[address] [address] Patient Name: AUBRIE SWEENEY MRN: [id number] date: 1975 Sex: M Assigned Patient Location: ICU Current Patient Location: ICU Accession/Order Number: [id number] Exam Date: 10/28/2024 10:55 Report Date: 10/28/2024 11:31 At the request of: CALLUM WEINSTEIN Procedure: CT angio chest EXAMINATION: CT angio chest HISTORY: acute hypoxia COMPARISON: XR chest 10/28/2024 TECHNIQUE: Multi-planar CT images were created with IV contrast. Axial, Coronal, and Sagittal images. Dose reduction techniques were achieved by using automated exposure control and/or adjustment of mA and/or kV according to patient size and/or use of iterative reconstruction technique. 3-D reconstruction was performed on a separate workstation. FINDINGS: VASCULATURE: No pulmonary embolism or abnormal opacity. LUNGS: Mild passive atelectasis versus consolidation within posterior dependent lung regions. PLEURA: Bilateral pleural effusions, 2.1 cm in thickness on right, 0.8 cm on left. VAISHALI: No mass or adenopathy. MEDIASTINUM: No mass or adenopathy. CARDIAC: Mild cardiomegaly. No pericardial effusion. AORTA: No aneurysm or dissection. CHEST WALL: No mass or axillary adenopathy. BONES: No bone lesion or fracture. LIMITED ABDOMEN: No suspicious findings. Limited images of the upper abdomen. OTHER: Negative. CT/CT angio chest IMPRESSION: 1. No pulmonary embolism. 2. Bilateral pleural effusions; moderate on right, small on left with small amount of passive atelectasis versus consolidation within posterior lung regions. 3. Mild cardiomegaly. Electronically authenticated by: DANICA HADDAD Date: 10/28/2024 11:31
[2024-10-28] MEDS: METHYLPREDNISOLONE SOD SUCC PF 125 MG/2 ML VIAL 60 MG IVP ×3 (11:36→23:17)
[2024-10-28 12:00] LABS: pH ABG 7.354 (7.350-7.450)
[2024-10-28 12:01] LABS: Allen Test POSITIVE (POSITIVE); Base Excess ABG 21.6 mmol/L (-2.0-2.0); HCO3 ABG 47.1 mmol/L (22.0-26.0); O2 Mode BIPAP; Oxygen Saturation ABG 86.3 %
[2024-10-28 12:02] LABS: BIPAP Pressure 1418; Fractionated Inspired Oxygen 40 %; Puncture Site LR; Rate 14
[2024-10-28 12:03] LABS: ABG PCO2 84.6 mmHg (35.0-45.0); PO2 ABG 54.9 mmHg (80.0-100.0)
[2024-10-28] MEDS: HYDRALAZINE HCL 25 MG TABLET PO ×2 (12:43→23:19)
[2024-10-28] MEDS: ENOXAPARIN SODIUM 40 MG/0.4 ML SYRINGE SUBQ (16:01)
[2024-10-28] MEDS: LEVOFLOXACIN IN DEXTROSE 5 % 750 MG/150 ML PREMIX 150 MG IV (16:01)
[2024-10-29] VITALS (131 sets, daily range): BP systolic 127–158; BP diastolic 69–92; PULSE 0–156; RESP 14; TEMP 36.8–36.9; O2SAT 90–97
[2024-10-29] MEDS: IPRATROPIUM/ALBUTEROL SULFATE 3 ML AMPUL.NEB IH ×4 (04:09→23:46)
[2024-10-29] MEDS: METHYLPREDNISOLONE SOD SUCC PF 125 MG/2 ML VIAL 60 MG IVP ×3 (05:10→21:42)
[2024-10-29] MEDS: HYDRALAZINE HCL 25 MG TABLET PO (05:11)
[2024-10-29 05:44] LABS: Basophils Percent Auto 0.1 % (0.2-2.0); Hematocrit 47.6 % (42.0-54.0); Hemoglobin 14.8 g/dL (14.0-18.0); Immature Granulocytes Abs Auto 0.03 10^3/uL (0.00-0.03); Immature Granulocytes Pct Auto 0.2 % (0.0-0.5); Lymphocytes Absolute Auto 0.7 10^3/uL (1.2-3.8); Lymphocytes Percent Auto 4.8 % (20.5-60.0); Mean Corpuscular HGB Conc 31.1 g/dL (29.9-35.2); Mean Corpuscular Hemoglobin 31.3 pg (25.9-34.0); Mean Corpuscular Volume 100.6 fL (80.0-94.0); Mean Platelet Volume 9.6 fL (9.5-13.5); Monocytes Absolute Auto 0.5 10^3/uL (0.3-0.8); Monocytes Percent Auto 3.9 % (1.7-12.0); Neutrophils Absolute Auto 12.4 10^3/uL (1.4-6.5); Platelet Count 444 10^3/uL (150-450); Red Blood Count 4.73 10^6/uL (4.70-6.10); Red Cell Distribution Width 12.3 % (11.0-15.0); White Blood Count 13.6 10^3/uL (4.0-11.0)
[2024-10-29] MEDS: METOPROLOL TARTRATE 50 MG TABLET 75 MG PO ×2 (08:29→21:43)
[2024-10-29] MEDS: ISOSORBIDE MONONITRATE 60 MG TAB.ER.24H PO (08:29)
[2024-10-29] MEDS: POTASSIUM CHLORIDE 10 MEQ ER TABLET 20 MEQ PO ×3 (08:30→16:04)
[2024-10-29 08:51] LABS: Anion Gap 1.7; BUN Creatinine Ratio 37.8; Calcium 7.8 mg/dL (8.5-10.1); Carbon Dioxide 49.6 mmol/L (21.0-32.0); Chloride 95 mmol/L (98-107); Estimated GFR (African America >60 (>=60 mL/min/1.73m^2); Estimated GFR (Non-African Ame >60 (>=60 mL/min/1.73m^2); Glucose 195 mg/dL (74-106); Potassium 3.3 mmol/L (3.5-5.1); Sodium 143 mmol/L (136-145)
--- NOTE | 2024-10-29 09:06 | P.PN_ITS ---
Progress Note: Subjective Subjective Interval history: Patient sitting up at the bedside, looks better today color gentile, feels better Exam Constitutional Vital Signs, click to edit/add: Last Vital Signs Temp 98.4 F 10/29/24 08:00 Pulse 78 10/29/24 09:00 Resp 11 L 10/29/24 08:20 BP 158/92 H 10/29/24 07:34 Pulse Ox 92 L 10/29/24 07:34 O2 Del Method Nasal Cannula 10/29/24 08:00 O2 Flow Rate 6 10/29/24 08:00 FiO2 40 10/29/24 04:09 Documenting provider has reviewed patient's vital signs: yes Common normals: no apparent distress (Minimal respiratory distress today) Chest Common normals: inspection of chest normal Respiratory Common normals: abnormal respiratory effort (Moderate respiratory distress) Auscultation: rales (Sounds improved overall with better air exchange), rhonchi and diminished lung sounds Cardio Common normals: regular rhythm; irregular rate Rate: tachycardic GI Common normals: negative for Normal to inspection, nondistended, normoactive bowel sounds present (Morbidly obese) Extremity Common normals: abnormal to inspection (2-3+ swelling bilateral lower extremities, edema probably unchanged from pr) Progress Note: Objective Labs Labs: Short CBC 10/29/24 Range/Units 05:05 WBC 13.6 H (4.0-11.0) 10^3/uL Hgb 14.8 (14.0-18.0) g/dL Hct 47.6 (42.0-54.0) % Plt Count 444 (150-450) 10^3/uL BMP 10/29/24 05:05 Sodium 143 Potassium 3.3 L Chloride 95 L Carbon Dioxide 49.6 H BUN 42.0 H Creatinine 1.11 Glucose 195 H Calcium 7.8 L Progress Note: A&P Assessment and Plan (1) Congestive heart failure: (2) Pulmonary hypertension: (3) Hypertensive urgency: (4) Acute exacerbation of COPD with asthma: (5) Pre-ulcerative calluses: Plan Admission findings: Respiratory distress, sinus tachycardia, hypertensive urgency, acute hypoxia with O2 sat of 83% secondary to acute combined congestive heart failure. Patient also describes cough productive of sputum be consistent with acute exacerbation of COPD Acute combined congestive heart failure-excellent diuresis yesterday with Bumex drip, so far total of 25 L diuresed with a net of 19, repeat Bumex drip over 20 hours this time Acute exacerbation of COPD with elevated pCO2 and cough with sputum production, white blood cell count normal but left shift consistent with bacterial ysnarxd-f-euy consistent with bilateral lower lobe infiltrate although that may be more the fluid from his acute combined congestive heart failure as well. Checking on sputum culture, repeat chest x-ray LVH-see cardiology recommendations Severe pulmonary hypertension-see cardiology recommendations Sleep apnea-severe sleep apnea. Patient even on BiPAP was having some desaturation, once we improve his lung function improving with diuresis BiPAP will definitely go better but as a lifesaving measure he will require BiPAP at the time of discharge Elevated BUN consistent with mild dehydration-holding off on fluid resuscitation as above, stable despite excellent diuresis Hypokalemia-supplement Right pleural effusion secondary to the fluid overload and severe pulmonary hypertension complicated by severe sleep apnea-no need for thoracentesis at this time, diuresis improving Iron deficiency luffgh-poqh-ykrglj daily, may be dilutional effect secondary to the acute combined congestive heart failure Elevated alkaline phosphatase-this may be passive congestion from the acute c ombined congestive heart failure versus remote history of alcohol abuse Admission status: Patient with severe hypoxemia is related to acute combined congestive heart failure and complicated by acute exacerbation of COPD, medically necessary treatment will span 2 midnights. Inpatient status ?
--- NOTE | 2024-10-29 09:26 | CM.NOTE ---
Rounds made with Dr. Zavala, pt sitting up at edge of bed. Pt states he feels his breathing is much better. Dr. Zavala discussed plan of care with pt, continue diuresing today. No discharge. Dr. Zavala will consult Dr. Daniels for further recommendations.
[2024-10-29 09:47] LABS: PO2 ABG 88.7 mmHg (80.0-100.0); pH ABG 7.387 (7.350-7.450)
[2024-10-29 09:48] LABS: Base Excess ABG 25.6 mmol/L (-2.0-2.0); HCO3 ABG 50.6 mmol/L (22.0-26.0); Oxygen Saturation ABG 97.2 %
[2024-10-29 09:49] LABS: Allen Test POSITIVE (POSITIVE); Liters per Minute 6L; O2 Mode NC
[2024-10-29 09:50] LABS: ABG PCO2 84.2 mmHg (35.0-45.0)
[2024-10-29] MEDS: BUMETANIDE 10 MG in 0.9 % SODIUM CHLORIDE 160 ML IV (10:05)
--- NOTE | 2024-10-29 10:54 | PT.DAILY ---
Physical Therapy Daily Note PT Daily Note/Assess Start: 10/28/24 08:50 Freq: Status: Active Protocol: Document 10/29/24 10:05 LUCIE (Rec: 10/29/24 10:54 LUCIE [id number]) Physical Therapy Daily Note/Assessment Time In/Time Out Time In 10:05 Time Out 10:20 Subjective Subjective Reports feeling better today, less SOB. Nursing okay's for RX. SPO2 drops have been sporadic but improved since being up in chair. Therapeutic Activity Time Therapeutic Activity 15 Minutes (minutes) Therapeutic Activity 1 Units Therapeutic Activity Treatment Chair Transfer Standby Assistance Ability Therapeutic Activity Sit to stand SBA. Attempted to ambulate with shoes on Comments and without AD this morning. Patient takes 2 steps forward, but reports increase in R hip pain/stiffness making patient fear that leg will give out without support. At this point got a RW for patient. Gait 15' in room on 6 LO2 with SPO2 dropping to 93 percent. No SOB noted. Limited distance due to hip pain. Static standing x 7 minutes as patient reports feels good just to stand. L fwd/retro stepping, L lateral stepping 10x each. Unable to bring L LE up into march position without pain, and unable to complete CC exercises of L LE due to pain. Total Physical Therapy Time Total Therapy 15 Minutes Total Physical 1 Therapy Units Summary Daily Note Summary SPO2 maintained above 93 percent entire RX on 6L O2 today. Gait limited due to L hip pain, patient reports this isn't new just feels more stiff from laying around last couple of days It will get better the more I move. Patient would benefit from OP PT upon DC to build up B LE strength for patient to be able to RTW as this is patient's goal.
[2024-10-29] MEDS: HYDRALAZINE HCL 25 MG TABLET 50 MG PO ×2 (13:24→21:43)
--- NOTE | 2024-10-29 13:51 | SWNOTE1 ---
SW spoke to pt in regards to his insurance. Pt voiced he spoke to employer the day after SW was in to see him. He stated they told him it should no be active. SW to check with out billers. Pt is also going to go online to see if he can see if it is active or not. SHANNAN called and spoke to Jazmyn in billing and pt insurance is still showing inactive at this time. SHANNAN let pt know.
--- NOTE | 2024-10-29 16:00 | SWNOTE1 ---
SHANNAN spoke to Melinda at [facility]. She was with the respiratory therapist at [facility]. SHANNAN asked about the emergency PAP machine for at home. Melinda voiced that since we are still a partnering facility, they could assist with emergency Bipap. They could likely try to do it while still in hospital. They would need documentation, script, and settings. SHANNAN did explain that pt is waiting for his insurance to be active as well. SHANNAN explained his employer did mess his insurance up, per patient, and it should be active soon. SHANNAN advised once it is active it will be [employer]. SHANNAN provided Melinda with pt's name. SHANNAN advised Melinda that SHANNAN will send information tomorrow so that we can start working on emergency pap machine.
[2024-10-29] MEDS: ENOXAPARIN SODIUM 40 MG/0.4 ML SYRINGE SUBQ (16:04)
[2024-10-29] MEDS: LEVOFLOXACIN IN DEXTROSE 5 % 750 MG/150 ML PREMIX 100 MG IV (16:04)
--- NOTE | 2024-10-29 16:07 | SWNOTE1 ---
SHANNAN notified nurse and sent Dr. Zavala a message as well in regards to emergency pap machine.
[2024-10-30] VITALS (38 sets, daily range): BP systolic 120–164; BP diastolic 60–97; PULSE 73–92; RESP 14; TEMP 36.3–37.2; O2SAT 80–97
[2024-10-30] MEDS: IPRATROPIUM/ALBUTEROL SULFATE 3 ML AMPUL.NEB IH ×4 (04:10→23:25)
[2024-10-30 04:53] LABS: Basophils Percent Auto 0.1 % (0.2-2.0); Eosinophils Absolute Auto 0.1 10^3/uL (0.0-0.7); Eosinophils Percent Auto 0.5 % (0.9-7.0); Hematocrit 46.6 % (42.0-54.0); Hemoglobin 14.8 g/dL (14.0-18.0); Immature Granulocytes Abs Auto 0.02 10^3/uL (0.00-0.03); Immature Granulocytes Pct Auto 0.2 % (0.0-0.5); Lymphocytes Absolute Auto 0.6 10^3/uL (1.2-3.8); Lymphocytes Percent Auto 5.6 % (20.5-60.0); Mean Corpuscular HGB Conc 31.8 g/dL (29.9-35.2); Mean Corpuscular Hemoglobin 31.1 pg (25.9-34.0); Mean Corpuscular Volume 97.9 fL (80.0-94.0); Mean Platelet Volume 9.7 fL (9.5-13.5); Monocytes Absolute Auto 0.6 10^3/uL (0.3-0.8); Monocytes Percent Auto 5.6 % (1.7-12.0); Neutrophils Absolute Auto 8.6 10^3/uL (1.4-6.5); Platelet Count 403 10^3/uL (150-450); Red Blood Count 4.76 10^6/uL (4.70-6.10); Red Cell Distribution Width 12.2 % (11.0-15.0); White Blood Count 9.7 10^3/uL (4.0-11.0)
[2024-10-30 05:22] LABS: Anion Gap 3.1; BUN Creatinine Ratio 33.3; Calcium 7.9 mg/dL (8.5-10.1); Chloride 90 mmol/L (98-107); Estimated GFR (African America >60 (>=60 mL/min/1.73m^2); Estimated GFR (Non-African Ame >60 (>=60 mL/min/1.73m^2); Glucose 236 mg/dL (74-106); Potassium 3.1 mmol/L (3.5-5.1); Sodium 141 mmol/L (136-145)
--- NOTE | 2024-10-30 05:30 | P.PN_ITS ---
Progress Note: Subjective Subjective Interval history: Patient getting his ABG, resting comfortably with BiPAP mask on Exam Constitutional Vital Signs, click to edit/add: Last Vital Signs Temp 98.9 F 10/30/24 04:00 Pulse 76 10/30/24 04:11 Resp 24 H 10/30/24 04:00 BP 164/91 H 10/30/24 04:00 Pulse Ox 90 L 10/30/24 04:11 O2 Del Method BIPAP 10/30/24 04:11 O2 Flow Rate 4 10/30/24 02:30 FiO2 35 10/30/24 04:11 Documenting provider has reviewed patient's vital signs: yes Common normals: no apparent distress (Minimal respiratory distress today) Chest Common normals: inspection of chest normal Respiratory Common normals: abnormal respiratory effort (Moderate respiratory distress) Auscultation: rales (Sounds improved overall with better air exchange), rhonchi and diminished lung sounds Cardio Common normals: regular rhythm; irregular rate Rate: tachycardic GI Common normals: negative for Normal to inspection, nondistended, normoactive bowel sounds present (Morbidly obese) Extremity Common normals: abnormal to inspection (2+ swelling bilateral lower extremities, edema probably unchanged from pr) Progress Note: Objective Labs Labs: Short CBC 10/29/24 10/30/24 Range/Units 05:05 04:22 WBC 13.6 H 9.7 (4.0-11.0) 10^3/uL Hgb 14.8 14.8 (14.0-18.0) g/dL Hct 47.6 46.6 (42.0-54.0) % Plt Count 444 403 (150-450) 10^3/uL BMP 10/29/24 05:05 Sodium 143 Potassium 3.3 L Chloride 95 L Carbon Dioxide 49.6 H BUN 42.0 H Creatinine 1.11 Glucose 195 H Calcium 7.8 L Progress Note: A&P Assessment and Plan (1) Congestive heart failure: (2) Pulmonary hypertension: (3) Hypertensive urgency: (4) Acute exacerbation of COPD with asthma: (5) Pre-ulcerative calluses: Plan Admission findings: Respiratory distress, sinus tachycardia, hypertensive urgency, acute hypoxia with O2 sat of 83% secondary to acute combined congestive heart failure. Patient also describes cough productive of sputum be consistent with acute exacerbation of COPD Acute combined congestive heart failure-diuresis continues to go well, currently 35 L out, with a net of 27.4 Acute exacerbation of COPD with elevated pCO2 and cough with sputum production, white blood cell count normal but left shift consistent with bacterial ktounwv-q-mov consistent with bilateral lower lobe infiltrate although that may be more the fluid from his acute combined congestive heart failure as well. Checking on sputum culture, repeat chest x-ray LVH-see cardiology recommendations Severe pulmonary hypertension-see cardiology recommendations Sleep apnea-severe sleep apnea. This will require sleep apnea treatment prior to discharge. This to be life-threatening, without the supplemental oxygen and BiPAP at nighttime his oxygen drops into the 70s. Documented evidence that the BiPAP has been very effective. able maintain sats 90% or greater throughout the night. Settings:IPAP=16, EPAP=8, PSV=8, Timed Ins=1Rise time=3, FiO2=40%, Toatl RR=18, Est Uen=022, Est NJ=714.8, PIP=16, TiTOT=24, COPD wiht oxygen depoendency - will do walk test to confirm amoutn - likely 3-4 liters Elevated BUN consistent with mild dehydration-holding off on fluid resuscitation as above, stable despite excellent diuresis Hypokalemia-supplement Right pleural effusion secondary to the fluid overload and severe pulmonary hypertension complicated by severe sleep apnea-no need for thoracentesis at this time, diuresis improving Iron deficiency dfbrqp-pwth-gbnbrg daily, may be dilutional effect secondary to the acute combined congestive heart failure Elevated alkaline phosphatase-this may be passive congestion from the acute combined congestive heart failure versus remote history of alcohol abuse Admission status: Patient with severe hypoxemia is related to acute combined congestive heart failure and complicated by acute exacerbation of COPD, medically necessary treatment will span 2 midnights. Inpatient status ?
[2024-10-30 08:03] LABS: pH ABG 7.425 (7.350-7.450)
[2024-10-30 08:04] LABS: Allen Test POSITIVE (POSITIVE); Base Excess ABG 32.9 mmol/L (-2.0-2.0); Fractionated Inspired Oxygen 35 %; HCO3 ABG 57.3 mmol/L (22.0-26.0); O2 Mode BIPAP; Oxygen Saturation ABG 93.2 %; PO2 ABG 66.8 mmHg (80.0-100.0)
[2024-10-30 08:05] LABS: BIPAP Pressure 16/8; Puncture Site LR
[2024-10-30 08:09] LABS: ABG PCO2 87.4 mmHg (35.0-45.0)
--- NOTE | 2024-10-30 08:19 | PC.NURSE ---
0810 lab results for ABG PCO2 87.[address] Zavala at 813
[2024-10-30] MEDS: POTASSIUM CHLORIDE 10 MEQ ER TABLET 30 MEQ PO ×3 (08:32→16:43)
[2024-10-30] MEDS: METOPROLOL TARTRATE 50 MG TABLET 75 MG PO ×2 (08:33→21:16)
[2024-10-30] MEDS: ISOSORBIDE MONONITRATE 60 MG TAB.ER.24H PO (08:33)
[2024-10-30] MEDS: PREDNISONE 20 MG TABLET 40 MG PO (08:34)
[2024-10-30] MEDS: HYDRALAZINE HCL 25 MG TABLET 50 MG PO ×3 (08:34→21:15)
[2024-10-30] MEDS: POTASSIUM CHLORIDE 40 MEQ in 0.9 % SODIUM CHLORIDE 250 ML 67.5 MEQ IV (08:34)
[2024-10-30] MEDS: 0.9 % SODIUM CHLORIDE 250 ML 10 ML IV (09:24)
--- NOTE | 2024-10-30 09:34 | CM.NOTE ---
Rounds made with Dr. Zavala, discussed with pt need for home BIPAP and need for home oxygen. No discharge today.
--- NOTE | 2024-10-30 11:19 | PT.DAILY ---
Physical Therapy Daily Note PT Daily Note/Assess Start: 10/28/24 08:50 Freq: Status: Active Protocol: Document 10/30/24 11:14 MARYAM (Rec: 10/30/24 11:19 MARYAM [id number]) Physical Therapy Daily Note/Assessment Time In/Time Out Time In 09:30 Time Out 09:40 Pain In Pain N/A Pain Out Pain N/A Subjective Subjective Pt sitting in BS chair upon arrival. Agreeable to PT. Reports L hip pain is about 6/10 this morning. on 6L O2 Therapeutic Exercise Time Therapeutic Exercise 4 Minutes (minutes) Therapeutic Exercise 0 Units Therapeutic Exercise Treatment Therapeutic Exercise Seated bilat LE strengthening ex complete while sitting Treatment in BS chair 10x ea. Small range on L side with marches and LAQ. Therapeutic Activity Time Therapeutic Activity 6 Minutes (minutes) Therapeutic Activity 1 Units Therapeutic Activity Treatment Chair Transfer Standby Assistance Ability Therapeutic Activity Sit>stand to RW SBA. Pt static standing 1 min while Comments conversing while tending to de-weight L side to avoid increased pain. F-B gait 4x 10' with RW, SBA with assist for IV and O2 lines. Returned to BS chair upon completion with call light in reach and needs met. Total Physical Therapy Time Total Therapy 10 Minutes Total Physical 1 Therapy Units Summary Daily Note Summary SpO2 96-88% throughout session on 6L O2. Steady with transfers - limited gait by lines/SPO2 dropping.
[2024-10-30] MEDS: BUMETANIDE 10 MG in 0.9 % SODIUM CHLORIDE 160 ML IV (11:46)
--- NOTE | 2024-10-30 12:02 | SWNOTE1 ---
SW sent script, bipap settings, progress note from today, and face sheet to [facility] in regards to emergency Bipap. SW did speak to pt and he is willing and understands he may have to pay out of pocket.
--- NOTE | 2024-10-30 14:49 | PC.NURSE ---
pt sleeping in chair, pulse ox dropping to mid 80's, placed on bipap for nap
--- NOTE | 2024-10-30 15:30 | SWNOTE1 ---
SHANNAN and case management spoke with Shruti at [facility]. She voiced that they can set up emergency bipap and it will be a loner bipap. Pt will need to have a sleep study done within 30 days. SHANNAN called and spoke to director biology lab, Samantha, and she voiced they are a week out and can get it scheduled Saturday. SW to call and schedule Saturday. SW let Shruti at [facility] know. She voiced that when pt is ready for discharge, nurse just calls staff occupational therapist service and [facility] will be assiting with bipap. If pt needs home oxygen, they will complete testing and fax over information. Pt will likely have out of pocket costs until insurance kicks in. SW to let pt and nurse know.
[2024-10-30] MEDS: LEVOFLOXACIN IN DEXTROSE 5 % 750 MG/150 ML PREMIX 100 MG IV (16:43)
[2024-10-30] MEDS: ENOXAPARIN SODIUM 40 MG/0.4 ML SYRINGE SUBQ (16:43)
--- NOTE | 2024-10-30 17:35 | PC.NURSE ---
pt on 4L O2 sat was 87%, titrated O2 to 5L SPO2 at 91%
[2024-10-31] VITALS (116 sets, daily range): BP systolic 107–155; BP diastolic 78–97; PULSE 75–99; RESP 14; TEMP 36.3–37; O2SAT 78–97
--- NOTE | 2024-10-31 01:47 | RESP.RT ---
patient could not maintain oxygen with home bipap with oxygen bled in. placed back on our bipap at 16/8 35% SpO2 =94%
[2024-10-31] MEDS: IPRATROPIUM/ALBUTEROL SULFATE 3 ML AMPUL.NEB IH ×4 (05:12→23:04)
[2024-10-31] MEDS: HYDRALAZINE HCL 25 MG TABLET 50 MG PO (05:35)
[2024-10-31 05:49] LABS: Basophils Percent Auto 0.1 % (0.2-2.0); Eosinophils Absolute Auto 0.1 10^3/uL (0.0-0.7); Eosinophils Percent Auto 0.8 % (0.9-7.0); Hematocrit 51.1 % (42.0-54.0); Immature Granulocytes Abs Auto 0.04 10^3/uL (0.00-0.03); Immature Granulocytes Pct Auto 0.3 % (0.0-0.5); Lymphocytes Absolute Auto 2.3 10^3/uL (1.2-3.8); Lymphocytes Percent Auto 18.4 % (20.5-60.0); Mean Corpuscular HGB Conc 31.3 g/dL (29.9-35.2); Mean Corpuscular Hemoglobin 30.8 pg (25.9-34.0); Mean Corpuscular Volume 98.5 fL (80.0-94.0); Mean Platelet Volume 9.6 fL (9.5-13.5); Monocytes Absolute Auto 1.4 10^3/uL (0.3-0.8); Monocytes Percent Auto 10.7 % (1.7-12.0); Neutrophils Absolute Auto 8.8 10^3/uL (1.4-6.5); Neutrophils Percent Auto 69.7 % (43.0-75.0); Platelet Count 373 10^3/uL (150-450); Red Blood Count 5.19 10^6/uL (4.70-6.10); Red Cell Distribution Width 12.1 % (11.0-15.0); White Blood Count 12.6 10^3/uL (4.0-11.0)
[2024-10-31 06:15] LABS: Anion Gap 1.4; BUN Creatinine Ratio 38.1; Calcium 8.2 mg/dL (8.5-10.1); Carbon Dioxide 50.3 mmol/L (21.0-32.0); Chloride 93 mmol/L (98-107); Estimated GFR (African America >60 (>=60 mL/min/1.73m^2); Estimated GFR (Non-African Ame >60 (>=60 mL/min/1.73m^2); Glucose 179 mg/dL (74-106); Potassium 3.7 mmol/L (3.5-5.1); Sodium 141 mmol/L (136-145)
[2024-10-31] MEDS: POTASSIUM CHLORIDE 10 MEQ ER TABLET 30 MEQ PO ×3 (08:20→16:48)
[2024-10-31] MEDS: METOPROLOL TARTRATE 50 MG TABLET 75 MG PO ×2 (08:20→21:31)
[2024-10-31] MEDS: ISOSORBIDE MONONITRATE 60 MG TAB.ER.24H PO (08:20)
[2024-10-31] MEDS: PREDNISONE 20 MG TABLET 40 MG PO (08:21)
[2024-10-31] MEDS: HYDRALAZINE HCL 50 MG TABLET 100 MG PO ×2 (08:25→21:31)
--- NOTE | 2024-10-31 08:35 | P.PN_ITS ---
Progress Note: Subjective Subjective Interval history: Patient attempted to use CPAP overnight, not successfully, mask was elevating, working on that again tonight Exam Constitutional Vital Signs, click to edit/add: Last Vital Signs Temp 98.1 F 10/31/24 07:36 Pulse 86 10/31/24 07:36 Resp 20 10/31/24 07:36 BP 151/94 H 10/31/24 07:36 Pulse Ox 94 L 10/31/24 07:36 O2 Del Method Nasal Cannula 10/31/24 07:36 O2 Flow Rate 4 10/31/24 07:36 FiO2 35 10/31/24 05:13 Documenting provider has reviewed patient's vital signs: yes Common normals: no apparent distress Chest Common normals: inspection of chest normal Respiratory Common normals: abnormal respiratory effort (Moderate respiratory distress) Auscultation: rales (Sounds improved overall with better air exchange), rhonchi and diminished lung sounds Cardio Common normals: regular rhythm; irregular rate Rate: tachycardic GI Common normals: negative for Normal to inspection, nondistended, normoactive bowel sounds present (Morbidly obese) Extremity Common normals: normal to inspection (1-2+ swelling bilateral lower extremities, edema probably unchanged from pr) Progress Note: Objective Labs Labs: Short CBC 10/31/24 Range/Units 05:38 WBC 12.6 H (4.0-11.0) 10^3/uL Hgb 16.0 (14.0-18.0) g/dL Hct 51.1 (42.0-54.0) % Plt Count 373 (150-450) 10^3/uL BMP 10/31/24 05:38 Sodium 141 Potassium 3.7 Chloride 93 L Carbon Dioxide 50.3 H BUN 45.0 H Creatinine 1.18 Glucose 179 H Calcium 8.2 L Progress Note: A&P Assessment and Plan (1) Congestive heart failure: (2) Pulmonary hypertension: (3) Hypertensive urgency: (4) Acute exacerbation of COPD with asthma: (5) Pre-ulcerative calluses: Plan Admission findings: Respiratory distress, sinus tachycardia, hypertensive urgency, acute hypoxia with O2 sat of 83% secondary to acute combined congestive heart failure. Patient also describes cough productive of sputum be consistent with acute exacerbation of COPD Acute combined congestive heart failure-diuresis continues to go well, currently 44 L out, with a net of 32 Acute exacerbation of COPD with elevated pCO2 and cough with sputum production, white blood cell count normal but left shift consistent with bacterial yjysgcm-k-vof consistent with bilateral lower lobe infiltrate although that may be more the fluid from his acute combined congestive heart failure as well. Checking on sputum culture, repeat chest x-ray LVH-see cardiology recommendations Severe pulmonary hypertension-see cardiology recommendations increasing hydralazine Sleep apnea-severe sleep apnea. This will require sleep apnea treatment prior to discharge. This to be life-threatening, without the supplemental oxygen and BiPAP at nighttime his oxygen drops into the 70s. Documented evidence that the BiPAP has been very effective. able maintain sats 90% or greater throughout the night. Settings:IPAP=16, EPAP=8, PSV=8, Timed Ins=1Rise time=3, FiO2=40%, Toatl RR=18, Est Ytp=425, Est IZ=996.8, PIP=16, TiTOT=24, mask is well-fitting last night, will attempt alternate mask tonight, unsafe to send home secondary to O2 sats in the 60s per verbal report COPD wiht oxygen dependency - will do walk test to confirm amoutn - likely 3-4 liters Elevated BUN consistent with mild dehydration-holding off on fluid resuscitation as above, stable despite excellent diuresis Hypokalemia-supplement Right pleural effusion secondary to the fluid overload and severe pulmonary hypertension complicated by severe sleep apnea-no need for thoracentesis at this time, diuresis improving, see above Iron deficiency gttiat-uvrs-wyujgs daily, may be dilutional effect secondary to the acute combined congestive heart failure Elevated alkaline phosphatase-this may be passive congestion from the acute combined congestive heart failure versus remote history of alcohol abuse Admission status: Patient with severe hypoxemia is related to acute combined congestive heart failure and complicated by acute exacerbation of COPD, medically necessary treatment will span 2 midnights. Inpatient status ?
[2024-10-31] MEDS: BUMETANIDE 10 MG in 0.9 % SODIUM CHLORIDE 160 ML IV (09:29)
--- NOTE | 2024-10-31 10:54 | PT.DAILY ---
Physical Therapy Daily Note PT Daily Note/Assess Start: 10/28/24 08:50 Freq: Status: Active Protocol: Document 10/31/24 10:53 [id number] (Rec: 10/31/24 10:54 [id number]) Visit Not Completed Visit Not Completed Visit Not Completed Nursing request to hold Due to: Other Reason Visit Nursing states he is getting himself out of bed and Not Completed around and does not need PT. Request to hold PT today per nursing Physical Therapy Daily Note/Assessment Time In/Time Out Time In 09:47 Time Out 09:48 GG. Functional Abilities and Goals-Complete for Swing Bed Patients Only [id number]. Self-Care [id number]. Mobility
[2024-10-31] MEDS: LEVOFLOXACIN IN DEXTROSE 5 % 750 MG/150 ML PREMIX 100 MG IV (16:48)
[2024-10-31] MEDS: ENOXAPARIN SODIUM 40 MG/0.4 ML SYRINGE SUBQ (16:49)
[2024-11-01] VITALS (11 sets, daily range): BP systolic 119–139; BP diastolic 82–87; PULSE 80–200; TEMP 36.9–37; O2SAT 82–92
[2024-11-01] MEDS: IPRATROPIUM/ALBUTEROL SULFATE 3 ML AMPUL.NEB IH ×2 (05:13→10:45)
[2024-11-01 05:54] LABS: Eosinophils Absolute Auto 0.3 10^3/uL (0.0-0.7); Eosinophils Percent Auto 2.8 % (0.9-7.0); Hematocrit 48.9 % (42.0-54.0); Hemoglobin 15.5 g/dL (14.0-18.0); Immature Granulocytes Abs Auto 0.03 10^3/uL (0.00-0.03); Immature Granulocytes Pct Auto 0.3 % (0.0-0.5); Lymphocytes Absolute Auto 2.3 10^3/uL (1.2-3.8); Mean Corpuscular HGB Conc 31.7 g/dL (29.9-35.2); Mean Corpuscular Hemoglobin 31.1 pg (25.9-34.0); Mean Corpuscular Volume 98.2 fL (80.0-94.0); Mean Platelet Volume 9.8 fL (9.5-13.5); Monocytes Percent Auto 9.6 % (1.7-12.0); Neutrophils Absolute Auto 6.4 10^3/uL (1.4-6.5); Neutrophils Percent Auto 64.3 % (43.0-75.0); Platelet Count 317 10^3/uL (150-450); Red Blood Count 4.98 10^6/uL (4.70-6.10); Red Cell Distribution Width 12.2 % (11.0-15.0)
[2024-11-01 06:15] LABS: Anion Gap 0.5; BUN Creatinine Ratio 37.4; Calcium 8.7 mg/dL (8.5-10.1); Carbon Dioxide 51.1 mmol/L (21.0-32.0); Chloride 93 mmol/L (98-107); Estimated GFR (African America >60 (>=60 mL/min/1.73m^2); Estimated GFR (Non-African Ame >60 (>=60 mL/min/1.73m^2); Glucose 221 mg/dL (74-106); Potassium 3.6 mmol/L (3.5-5.1); Sodium 141 mmol/L (136-145)
[2024-11-01] MEDS: HYDRALAZINE HCL 50 MG TABLET 100 MG PO (08:00)
[2024-11-01] MEDS: METOPROLOL TARTRATE 50 MG TABLET 75 MG PO (08:00)
[2024-11-01] MEDS: ISOSORBIDE MONONITRATE 60 MG TAB.ER.24H PO (08:00)
[2024-11-01] MEDS: PREDNISONE 20 MG TABLET 40 MG PO (08:00)
[2024-11-01] MEDS: POTASSIUM CHLORIDE 10 MEQ ER TABLET 30 MEQ PO (08:01)
--- NOTE | 2024-11-01 08:18 | P.DS_ITS ---
DS: Providers Provider Date of admission: 10/26/24 14:12 Primary care physician: YENY VELÁSQUEZ Consults: 10/26/24 13:43 Occupational Therapy Eval and Treat Routine Reason for consultation: Only if needed for Rehab Has provider been notified: No Physical Therapy Eval and Treat Routine Reason for consultation: Eval and Treat Has provider been notified: No 10/27/24 10:59 Consult to Podiatry Routine Consulting Provider: Sherwin Zuluaga Reason for consultation: foot sores 10/27/24 13:02 Consult to Cardiology Routine Reason for consultation: chf Has provider been notified: No 10/29/24 09:04 Consult to Pulmonology Routine Consulting Provider: Norman Daniels Reason for consultation: sleep apnea -= CPAP advice Has provider been notified: No DS: Diagnosis Discharge Diagnosis (1) Congestive heart failure: (2) Pulmonary hypertension: (3) Hypertensive urgency: (4) Acute exacerbation of COPD with asthma: (5) Pre-ulcerative calluses: Plan Admission findings: Respiratory distress, sinus tachycardia, hypertensive urgency, acute hypoxia with O2 sat of 83% secondary to acute combined congestive heart failure. Patient also describes cough productive of sputum be consistent with acute exacerbation of COPD Acute combined congestive heart failure-diuresed a total of 52 L over the hospital stay with a net of 37 L output Acute exacerbation of COPD with elevated pCO2 and cough with sputum production, white blood cell count normal but left shift consistent with bacterial nghhgsv-o-thw consistent with bilateral lower lobe infiltrate although that may be more the fluid from his acute combined congestive heart failure as well. Improving at the time of discharge LVH-see cardiology recommendations Severe pulmonary hypertension-see cardiology recommendations increasing hydralazine Sleep apnea-severe sleep apnea. This will require sleep apnea treatment prior to discharge. This to be life-threatening, without the supplemental oxygen and BiPAP at nighttime his oxygen drops into the 70s. Documented evidence that the BiPAP has been very effective. able maintain sats 90% or greater throughout the night. Settings:IPAP=16, EPAP=8, PSV=8, Timed Ins=1Rise time=3, FiO2=40%, Toatl RR=18, Est Ocq=711, Est IK=544.8, PIP=16, TiTOT=24, mask is well-fitting last night, will attempt alternate mask tonight, unsafe to send home secondary to O2 sats in the 60s per verbal report COPD with oxygen dependency -doing well at 4 L Elevated BUN consistent with mild dehydration-holding off on fluid resuscitation as above, stable despite excellent diuresis Hypokalemia-supplement Right pleural effusion secondary to the fluid overload and severe pulmonary hypertension complicated by severe sleep apnea-no need for thoracentesis at this time, diuresis improving, see above Iron deficiency wnaldk-jmhx-xospdk daily, may be dilutional effect secondary to the acute combined congestive heart failure L Elevated alkaline phosphatase-this may be passive congestion from the acute combined congestive heart failure versus remote history of alcohol abuse Admission status: Patient with severe hypoxemia is related to acute combined congestive heart failure and complicated by acute exacerbation of COPD, medically necessary treatment will span 2 midnights. Inpatient status DS: Summary Hospital Course Hospital Course: Patient presented to the emergency room with increasing cough and shortness of breath and weight gain he states his only been over the last month, suspicion is has been quite a bit longer than that, he has not seen medical care in quite some time. Patient was found to have acute combined congestive heart failure severe pulmonary hypertension and severe sleep apnea. Patient was aggressively diuresed over the 6-day hospital stay, using Bumex drip his creatinine remained essentially the same as it was in admission, but diuresed 52 L with a net of 37 L output. Up into the last 2 days patient was requiring high flow supplemental oxygen during the day, over the last couple days has been able to wean down to from 6 L down to 3 to 4 L does have some desaturation with ambulation but this is still much improved from his baseline. With his significant elevated pCO2 he had a normal pH she has been living with that for an extended period of time. Today his improved 3 to 4 L of supplemental oxygen, will thus need for when he is walking, definite for when he is sleeping for bleeding and for his BiPAP machine. Mask seem to fit better last night he will still have some desaturations into the mid 80s, but this is likely away improved from his baseline. At this point is medically stable for discharge. He will follow-up with me closely, needs an outpatient sleep study and follow-up with cardiology for the severe pulmonary hypertension, medication see the. Time Spent with Patient Time attestation: Total time spent providing and/or coordinating discharge services: Exam Constitutional Vital Signs, click to edit/add: Last Vital Signs Temp 98.6 F 11/01/24 08:00 Pulse 95 H 11/01/24 08:00 Resp 16 11/01/24 08:00 BP 119/82 11/01/24 08:00 Pulse Ox 90 L 11/01/24 08:00 O2 Del Method Nasal Cannula 11/01/24 08:00 O2 Flow Rate 3 11/01/24 08:00 FiO2 35 10/31/24 05:13 Documenting provider has reviewed patient's vital signs: yes Common normals: no apparent distress Chest Common normals: inspection of chest normal Respiratory Common normals: abnormal respiratory effort (Moderate respiratory distress) Auscultation: rales (Sounds improved overall with better air exchange), rhonchi and diminished lung sounds Cardio Common normals: regular rhythm; irregular rate Rate: tachycardic GI Common normals: negative for Normal to inspection, nondistended, normoactive bowel sounds present (Morbidly obese) Extremity Common normals: abnormal to inspection (1-2+ swelling bilateral lower extremities, about the same as previous day) DS: Data Data Completed and Pending Labs on day of discharge: Labs from last 24 hours 11/01/24 05:37 WBC 10.0 RBC 4.98 Hgb 15.5 Hct 48.9 MCV 98.2 H MCH 31.1 MCHC 31.7 RDW 12.2 Plt Count 317 MPV 9.8 Neut % (Auto) 64.3 Lymph % (Auto) 23.0 Bay % (Auto) 9.6 Eos % (Auto) 2.8 Baso % (Auto) 0.0 L Neut # (Auto) 6.4 Lymph # (Auto) 2.3 Bay # (Auto) 1.0 H Eos # (Auto) 0.3 Baso # (Auto) 0.0 Abs Immat Gran (auto) 0.03 Imm/Tot Granulo (auto) 0.3 Sodium 141 Potassium 3.6 Chloride 93 L Carbon Dioxide 51.1 H Anion Gap 0.5 BUN 46.0 H Creatinine 1.23 Est GFR ( Amer) >60 Est GFR (Non-Af Amer) >60 BUN/Creatinine Ratio 37.4 Glucose 221 H Calcium 8.7 NT-Pro-B Natriuret Pep 761.0 Discharge Plan Discharge Disposition: Home, Self-Care Condition: Fair Discharge Medications: New isosorbide mononitrate 60 mg Tablet Extended Release 24 Hr 60 mg PO QD Qty: 30 11RF albuterol sulfate [Ventolin HFA] 90 mcg/actuation HFA aerosol inhaler 2 inh inhalation Q6H MDD 2 puffs Qty: 8.5 11RF Rx Instructions: please provide spacer as well prednisone 10 mg tablet 40 mg PO DAILY Qty: 32 0RF Rx Instructions: 4/day for 3 days, 3/day for 3 days, 2/day for 3 days, 1/day for 3 days, 1/2 /day for 4 days ciprofloxacin HCl [Cipro] 500 mg tablet 500 mg PO Q12H Qty: 14 0RF metoprolol tartrate 75 mg tablet 75 mg PO BID Qty: 60 11RF hydralazine 100 mg tablet 100 mg PO BID Qty: 60 11RF bumetanide 1 mg tablet 1 mg PO DAILY Qty: 30 11RF potassium chloride 10 mEq tablet extended release 10 meq PO BID Qty: 60 11RF albuterol sulfate [Ventolin HFA] 90 mcg/actuation HFA aerosol inhaler 2 inh inhalation Q6H PRN (Reason: shortness of breath or wheezing) Qty: 8.5 11RF Rx Instructions: please provide spacer as well ciprofloxacin HCl [Cipro] 500 mg tablet 500 mg PO BID Qty: 14 0RF prednisone 10 mg tablet 40 mg PO DAILY Qty: 32 0RF Rx Instructions: 4/day for 3 days, 3/day for 3 days, 2/day for 3 days, 1/day for 3 days, 1/2 /day for 4 days metoprolol tartrate 75 mg tablet 75 mg PO BID Qty: 60 11RF hydralazine 100 mg tablet 100 mg PO BID Qty: 60 11RF isosorbide mononitrate 60 mg tablet extended release 24 hr 60 mg PO DAILY Qty: 30 11RF Activity: increase activity as tolerated Diet: advance to your usual diet Print Language: Palestinian Patient Instructions: Ciprofloxacin (By mouth), Metoprolol (By mouth), Bumetanide (By mouth) (Bumex), Albuterol (By breathing) (ProAir, AccuNeb, Proventil, Proventil..., Potassium Chloride (By mouth), Hydralazine (By mouth), Isosorbide Mononitrate (By mouth), Sleep Apnea (GEN), Using Oxygen at Home (GEN), Pulmonary Arterial Hypertension (GEN), Fluid Restriction (GEN), BiPAP (GEN), Sleep Study (GEN) [employer] Instructions: Will be discharged with celestina Munson from [facility]. Patient will need to have sleep study done within 30 days. [employer] will call patient Saturday with time and date of sleep study. Forms: Portal Instructions Follow Up Appointments: Call Dr Zavala office Saturday to schedule follow up appointment. [phone]. [facility] [phone]
[2024-11-01] MEDS: BUMETANIDE 1 MG/4 ML VIAL 2 MG IVP (09:09)
--- NOTE | 2024-11-02 09:47 | SWNOTE1 ---
SW called the sleep study. They have voiced they will need to get prior auth before scheduling. She will also need an order and documentation. SHANNAN did explain that SW has to call pt and see if he did get his insurance cards. SHANNAN also stated she will have to fax or call Dr. Zavala's office to request an order for sleep study. She voiced she will fax an order over. SW to fax her progress notes and settings from pt's stay.
--- NOTE | 2024-11-02 09:53 | SWNOTE1 ---
SW called and left pt a voicemail to return SW call. SW requested pt's ID for insurance so SW can provide to sleep lab.
--- NOTE | 2024-11-02 15:31 | CM.DCFOLLOWU ---
Person spoke with: patient How are you feeling?well How is your pain?none Did you understand your discharge instructions?yes Do you have any questions about your discharge instructions?no Were you given any prescriptions at discharge?yes Were you able to get your prescriptions filled?yes Do you understand how to take your medications as ordered?yes Do you have any questions about your follow up appointment and do you plan to keep your follow up appointment? no questions, reviewed follow up Is there anything else that you would like to discuss?no Questions/Comments/Concerns/Other: none
--- NOTE | 2024-11-02 15:58 | SWNOTE1 ---
SW did speak with pt and he was getting ready to take a nap. He voiced he was doing well and he would call back after his nap and provide the insurance information. SHANNAN had voicemail from pt with the [employer] ID number. SW sent demographic sheet, physician note (dc summary from his stay), and bipap settings to sleep lab. SW requested sleep study be completed KATERIN and for them to reach out to myself or pt's PCP (Dr. Zavala) if any further questions.
--- NOTE | 2024-11-03 10:42 | SWNOTE1 ---
SW received an email from Shayy at sleep lab and pt is scheduled to have sleep study done [facility] 11/03/24.
== END 2024-11-01 11:26 | disposition home or self-care (01) | DRG 291 ==
LOC: ER 13:24 → MS 14:20 → ICU 10-28 10:45
PROVIDERS: Admitting Provider Family Medicine; Emergency Provider Emergency Medicine; PCP Family Medicine; Visit Provider Family Medicine
DX: I11.0 Hypertensive heart disease with heart failure (principal); I50.41 Acute combined systolic (congestive) and diastolic (congestive) heart failure; J96.01 Acute respiratory failure with hypoxia; J44.1 Chronic obstructive pulmonary disease with (acute) exacerbation; I16.0 Hypertensive urgency; Z87.891 Personal history of nicotine dependence; E66.01 Morbid (severe) obesity due to excess calories; E86.0 Dehydration; D50.9 Iron deficiency anemia, unspecified; F10.11 Alcohol abuse, in remission; R79.89 Other specified abnormal findings of blood chemistry; I27.20 Pulmonary hypertension, unspecified; G47.30 Sleep apnea, unspecified; L60.2 Onychogryphosis; L84 Corns and callosities; B35.1 Tinea unguium; E87.6 Hypokalemia; Z99.81 Dependence on supplemental oxygen; Z68.37 Body mass index [BMI] 37.0-37.9, adult
CPT/HCPCS: 36415; 36600; 71045; 71046; 71275; 73630; 80048; 80076; 81001; 82805; 83880; 84436; 84443; 84484; 85007; 85025; 85027; 87070; 93005; 93306; 94640; 94660; 94667; 94668; 94761; 96374; 97112; 97161; 97165; 97530; 99285; J0360; J1650; J1920; J2919; J3480; J7512; Q9967

== ENCOUNTER 2024-11-03 19:53 | Outpatient (OUT) | payer OTHER, SELFPAY ==
--- OUTSIDE RECORDS SUMMARY | 2024-11-03 19:56 | XMS_ITS | CCD ---
Author Organization [facility] Care Team Providers Care Dispatch Coordinator Name Role Phone NONE, XXXX Primary Care Physician Unavailab polo MORA ., BENJAMIN Attending Unavailable MORGAN ., BENJAMIN Admitting Unavailable REQUEST, DR NONE LISTED Primary Care Unavaila lula Suggs, BENJAMIN Consulting Unavailable RASHIDA, SHAUNA Attending Unavailable RASHIDA, SHAUNA Admitting Unavailable BOO, DR DANICA Chan Consulting Unavailable REQUEST, DR ROBERT LISTED Primary Care Unavaila JT Ledesma Consulting Unavailable SHAUNA FIELD Consulting Unavailable PAY ., DR BUTCHER Attending Unavailable PAY ., DR BUTCHER Admitting Unavailable DIDIER, DR SAINI Primary Care Unavailable Problems Active Problems Problem Classification Problem Date Documented Date Episodic/Chronic Osteoarthritis (1 source) Unilateral primary osteoarthritis, left hip; Translations: [UNI PRIM OSTEOARTHRITIS LT HIP] Onset: 01-02-2022 Chronic Residual codes; unclassified (4 sources) Procedure and treatment not carried out due to patient leaving prior to being seen by health care provider; Translations: [PROC AND TX NOT CARRIED OUT PT LEAVE] Onset: 12-21-2022 Episodic Substance-related disorders (2 sources) Smoker; Translations: [Nicotine dependence, cigarettes, uncomplicated] Onset: 08-13-2022 10-02-2014 Chronic Comment on above: Added secondary to d ocumentation in Social History. Past or Other Problems Problem Classification Problem Date Documented Da te Episodic/Chronic Disorders of teeth and jaw (4 sources) Other specified disorders of teeth and supporting structures; Translations: [Periapical abscess without sinus] Onset: 08-11-2022 Episodic Other injuries and conditions due to external causes (1 source) History of falling; Translations: [HISTORY OF FALLING] Onset: 01-02-2022 Episodic Other non-traumatic joint disorders (4 sources) Pain in left hip; Translations: [PAIN IN LEFT HIP] Onset: 01-01-2022 Episodic Unclassified (1 source) None (qualifier value) 09-27-2010 Results Test Name Value Interpretation Reference Range Facil ity Coding Summary.on 01-15-2022 Coding Summary. CD:[id number] G h0bWw+PGhlYWQ+PT5WTNZ aD84xjLNzyB7FM9tPMG8G MMTVRMQMXQ4YYG7nuAK0X MjvY1DvmwFm FhxuuWYhRV71FSo9OGZ6k GonEWghwU4wqAEwH9p0Ab VwLT00vL58FVacFLHrKdW 3LjZpbjsgbWFy Q6rhDxMnyFEpKrg+PHRhY mxlIHdpZHRoPScxMDAlJy SfzAgvXS4sHx6tFUTmXOT vbGxhcHNlOiBj r7hgEBCqSEpzFE0fnCgiK 2QkwMO8KFMtc2g2Ex18qK I+TRDqNFW1rEchHDexl22 3LqSsr9qrXCS8 xGAmJFwvODJ8O15pb0M1X QPvMBWmZGF4rSF0dQ4bjR orahgsK8SjuXGjOzD9NVG 6hGTwjI0wrFxg ttusoU0rGkt+N54BBA4PL IWFPQ4ORtt1A9ZhOvfaxE I+ZW40RDRgMS15iMOudES vf8sqpMy8NbMg EIDtCJU1fIzuTEmiu1MfN LUpJ75qhAMgq8C3VZKfnF qqtHWeXmAsxSV1aN1zKRl dbiqkf0ikdpff Gmyqf2qysu62wH83A97lO JywVLSpRLI4BSPdSIKplO oocq3evC9mMp4+RHihz6e kl2maoUt1EcWk PFIfrwZbmDeoCDI9p8TzW n20F1PiyZssy5FoDfz2ml 69iZAzl1H7rZG6LAwmZSO txX9tXMhdJmJ5 SCNvGrFasI98mBHeJKytZ z5syFcawMhjQW6cKZFroz knBPLxpW0pQSEqdNUbfCr yLP7jHSCbhihx a310TqCiSWS3DVJmaXMyP 5IclV0oJrWdSCIlMKLgV9 TttHEyEHnpX316HTckGrL 3DVBmdeWmV5Rd DXPhhIqvKwG5j4S7Kr3Vo 5UjdoabQHF7ORepYRK1Zh T5RaEcEnQ4B7RwTnl4APM ixElpQC0vW4Cp QREolxnobrovzYN9JUEiH LGvrR43nUKoHAzkQo4ef0 A2e119SFRvXHYotE94Un7 udDogMTBwdCBU pO0muqies9glmfpgNwIyD DFlEWd8ITp5DOQmgStaRb GaTJM6LzI6RQE3uCAcsI6 dpWecufuhkZ1m Oyc+F01pxH5pZOS2MDB2d hxrSJRjudLrHA15YL93L9 RyPjwvdGFibGU+PGRpdiB nxNiqSD5qPgVj j0nxw8CaPGxfM1HpSFQwW OwsMyq4HFBaUNE9hKC4cB 8mRUNdWIrwu8P0pJL0S9C xjjKogr7oa8zb LNCyQHqeK75joOYko0C7A GFvfUE0BOLumAezMcKolV 93Oyc+FDPagQwnn8XvCzm rc2ghm4jxvEm0 JqSqUWDqwnKeeIxlKWO5k 9DrJz62N42oGCbyEHPcXO YfEDWdTYVemOwqvb3znT9 wIi8+PGNvbCB3 tOM2eF0sDFKuTaS3HCidQ 384AeFqdLXdAzfot4wjh6 kbnIr8AkStMDIqmsSivFy yOOB4z5CeCl29 M79kNYinVBIvWZXnINBaA TTkgZkivq4yqG1wVe1+PC 8gc7hlvz55mJ70iUD+PHR lNFH2cOitRRia JCXqpX7mYRxlGvZ6MIJwI uYitI67vENuKMgyFt4ooD wjfFulHJ0ySYQhxrlqe11 8EcFfb4ijZITv bKEoABrzGDO6U45ed7B4E EPxTAQuCYD7aAJ9tB0qsF lnbjogbGVmdDsgdmVydGl sSRpdMFhyE524 IHRvcDsnPlBhdGllbnQgT uNhHUq2Q3AaKbo1ZREzoQ piYM4npVMgKXxrDr6dnBh nsIkaTY8wNZCv fyval291KqJqu1nxBVEaf DTvXLspPUL6K85tx3V4HQ NwLUJxDFV7fGE3mN4onFf nbjogbGVmdDsg fwZnfUvdTJoxLYmjZ465U HRvcDsnPkJpcnRoIERhdG E6AP60RY67kSLtf7M9bIE 8T8TwNEXyknkm ozxpvDV8ZBMfXMWtcC66B h5zxHovLe9lYLLrGQZ6TF HjsXLbI7XfeR2tAdYuZMZ fEQWeR1UzdDJu PCajP783KMriAiK4RCWdt rVzQ3GiJSWgzAydSnQ8e4 S5Ic8SV3H6LZ24OK48kGI ob8O8uVT6K2Xq UUQugruyrrwbhHQ5CRRiL GOjhM16Mh6zfHuqRe0pEQ WsRYX6ATGmgPBkT2YwhB0 yOiAjMDAwMDAw P4BiwPUxZBlsZ800CYnnJ kH7FYTpnuKjS4NxNSAxiA thJhP3z2A9Na3RPEt7XM7 0HJ38kAPgq6P4 aDD2E9QlUJYyimivwhgfm HF1CVXuDERhiQ49Kv5ioE edAg3wAWMzSLE9TDJfeKR zO2EwyP2nMvYb HLFzQRDxT2CcbOQmTDpjA 799SPegRjH4ECIovaIhN9 WhWZBfwIuyDjW3h8O7Gl1 JNZAlLO42MXS3 dDY7YJ37UT90B1TuCtsss GFibGU+PHRhYmxlIHdpZH RoPScxMDAlJyBzdHlsZT0 lAz8bOWPdGKPy oRlkkJNmYwQgc7zrOJGgB WacUG1auRkcM4IaaEK7PC Oei4r9Tz64O37cC7SqeOY +ZCQrkVO6vDY2 dX1jDkIjUvG8COfbD533X zVjiJQsKjsba5bik4bahP m9WhK4JQZgzaEjvSloIHC 6j4TjLo65L59b IHdpZHRoPSIxNSUiIHZhb Vrmmh7tsF8nVm3+PGNvbC X2fOI0aG7wVsToGkF9IYm gW549GuOwjSHj Enimz0kcb0zjxHw1KtPvL LZhetKdrMivXXH2x5UsJl 47F8TqiCnky4UvUnp6jl0 2uSNhl0Z9cUW0 Z7NrNLUagoldkEQreUifC N8gWGNcguitKUHzlK1wRN WqN4b9EkCtBlS3BNhpV6X grqG6VDCqjKTk ZJmvQAH7P22tg4G8BSFuQ FUpJNF2dVM8wZ1fmAnvcb ogbGVmdDsgdmVydGljYWw lJIalO392RREp aTbdGMUmjP4iMOGrhQRfz TkzZO7lMLGoumpbNzxTTH GBSfHyBMzTXQVRMO30IR5 0uMZue4U8bVT1 G5GaELOhaxatjdomqXH7M TUkWAIwyF20bNBmPRkdAr 4rp2G9d039YHXySIIujA9 5Tm1knIgbVPOm nJRCqE3kgjizv0wnqhkxC ePaLDSuIHf7TTk0BWHcdS ztRcYiSRR5TlO7QAE4eCW ywL0nxYofvnpa dD5cSzo+FYHoUnNkYSy7M zwvdGQ+USNkQNG1pNppML vzWDElaV6tPPKiL6l5CfB vNmE5BCcxV8Zy JMLqrtnnVs96gI7eGyGaU fN1LCunN0NqyqM0QYVsvB RbVPsrYTS7X42rq9Q0DRN zCCHfVAQ8yMZ2 dD5bdHkqcfjslGGnpCalv iXcqVuoGRtfZFksM146KK ZewUzdPqB5GUppCWQvLW1 4FA08wLCdb1X5 sXO5L7SaTSKgjvadmxsru AS7DRThUOLfsE23iTExIO grEv7gd2A9c784QHTvNTS hyV31Hr1pjIyc DJDiiZYIcU1bczdtl2jip ddrKnOfIFSuUAq6QMw5QH SpnRvyZfYfFBG4WaP3PFR 6kUNamE9umDgf xrfyoZ5zXtu+TWFsZTwvd GQ+IOMtMPU1oMasXZphOL FdfD2nWCTuI2x4KcFhJdK 5DUltX8ZtJEQz wgsbJx79qD9yXgWvAoL5U WdwZ6DxevQ8AJLdaTVnEW zvTPU9B03fx3F9HNQgAHZ oTDQ9dWA5yQ9t bGlnbjogbGVmdDsgdmVyd LfxLXnbEHiuB534YVZohO sbDs65nKWxbZtqrwW0F5N kPjwvdHI+PC90 IPVjLS60vACevGDcn2dfm Im1HbWmWXEqDCJ6zBwdJE lsn5QzYEKgC95kgSNiq2Y 6IGNvbGxhcHNl SxYnqTY5mL6mLQqpdgqpk 1crwhjcTwrxl4erou61tI 13X25hDNikMRIqIAOgEDA cADUdiDnvty1v aU3qTp3+IRLieQC6fBN6n I8mHeYvFbL1DXikG949Td EnzZUiFovkl6kfq1rqzCl 9IjIwJSIgdmFs nSfkRKV9y1DeFv18A89vN HdpZHRoPSIyMCUiIHZhbG sqsq7ucY9hPj0+IR4dy4k dct41gF71iYF+ XOLkUFK5zMkpCTxpQWJom Y9eLKcoKaG0DZUxViCerX 97bIQcGOpzEo2yjQfmaIs dKO1uFNZmijsd q083EtHbq6rpLMRuaGGmB AnhDKH3L29io1N1VCMyXO McAFH9nDH8dC1zkMtltsd gbGVmdDsgdmVy lEhhRJijNYfdV636DCVav IuyNsCauJMnB7wxedBSQS 1lOjwvdGQ+CPSsPTJ8fOx kFHftZUNvcJ3k VVOmB8v2DvTqFxS6MIttC 6RdiuB9CMLqyFSyNCWlqB ACjT9ccdstb4irzkgwOgE xOKJkGUt2ETh5 TSKouGkvJoHtAOH9KgO1O DU9hUUglD3dqItyknpgrV 9wOyc+RklOOjwvdGQ+PHR yREA7sZbiWPan OUAktK7qLEXhZ4t3JhEsJ cM7ZWpsM6ArseY1VQYspW OoRYMmzBSAxQ8wcnscq3c vcjogIzAwMDAw DWu4SNa5JTTiyGliFeJlM BR4NnK7FRQ6bJQlxP8xzZ ooaoaotL0mRjr+TVJOOjw vdGQ+PHRkIHN0 nSveBNluRJQurA9sYJVqX 3f7XmAxRzR5NRhyE4Tcjm T6QLMzbDRqYPCfrADZmS1 zlapbf5pygmjh BnCgMIUvYNq0NTh6CPQse RhaCeIgVAD5HpQ7IMA2hC JgrV8vsCjwudzfmI7pHtv +GOA1QLR0MY12 JK07S1KoWhulcMVcjAE+P HRhYmxlIHdpZHRoPScxMD ZvVkIhbJxzTX6fKz5jXRA yLWNvbGxhcHNl OiBj (more content not included)... [facility] Consent for Treatmenton Consent for Treatment [id number]#1 .00CD:127 [facility] Operative Reporton Operative Report SURGERY DATE: 01/05/2022 PREOPERATIVE DIAGNOSIS: Left hip osteoarthritis POSTOPERATIVE DIAGNOSIS: Left hip osteoarthritis OPERATION: Left hip arthrography for corticosteroid injection ANESTHESIA: 1% lidocaine plain INJECTED SOLUTION: 1 cc, 40 mg, Kenalog with 2 cc 1% lidocaine plain SPECIMEN: None COMPLICATIONS: None DRAINS: None HISTORY/OPERATIVE INDICATIONS: The patient is a 46-year-old white male who presents complaining of pain, difficulty about the left hip and groin area. The patient is found to have osteoarthritis that is clinically significant. We did discuss all options conservative and surgical and the patient does opt for the above procedure. The procedure is undertaken this day. PROCEDURE: The patient is met in the [facility]. The patient is placed supine on the fluoroscopic table. Approximate site of injection is identified and localized with the fluoroscopic unit. This area is sterilely prepped and draped in the usual surgical fashion at which time the area is anesthetized with 1% lidocaine plain. At this point, the arthrography is performed. A 22 gauge spinal needle is then taken directly down onto the anterior femoral neck in a subcapital position. A palpable release of the capsule is realized. A small amount of Isovue-300 radiologic dye is then injected intracapsular to verify this position. At this point, the hip is injected with the above solution. The needle is withdrawn. No bleeding or hematoma formation. The patient will be discharged from the [facility] here today. Ori Dillard D.O. ls Dictated: 01/05/2022 [id number] Transcribed: 01/05/2022 [facility] Comment on above: Result Comment: Elec tronically Signed By: Ori Dillard DO\.br\Date and Time Signed: 01/05/22 12:49 EDT RAD - Consent to Procedureon 01-05-2022 RAD - Consent to Procedure [id number] .00CD:127 [facility] Physician Orderon 01-04-2022 Physician Order [id number] 1.00CD:127 [facility] Physician Order [id number]. 00CD:127 [facility] Physician Order [id number] .00CD:127 [facility] Physician Orderon 01-03-2022 Physician Order [id number] .00CD:127 [facility] Physician Order [id number]. 00CD:127 [facility] Encounters Encounter Date Encounter Type Care Provider Facility Start: 12-21-2022 End: 12-21-[address] HADLEY MATOS . Facility:[facility] Start: 08-11-2022 End: 08-11-2022 ambulatory BENJAMIN MORA . Facility:[facility] Start: 01-05-2022 End: 01-05-2022 Patient encounter procedure Ori Dillard [facility] Start: 01-01-2022 End: 01-01-2022 ambulatory SHAUNA FIELD Facility:[facility] Procedures Date Procedure Procedure Detail Performing Clinician None (qualifier value) Ori Dillard Payers Date Payer Category Payer Unknown [id number] [id number] 1975 Unknown [id number] 1975 Unknown [id number] 1961 Unknown [id number] Social History Date Type Detail Facility Tobacco Current, Cigaret nimesh, 10 per day. [facility] Sex Assigned At Male [facility] Clinical Note 01-01-2022 Note Date & Type Note Facility 01-01-2022 Note PROCEDURE: XR HIP LT 2 3V W PELVIS HISTORY: Left Hip pain after falling COMPARISON: None. FINDINGS: BONES:Multiple small subchondral cysts suspected involving the left acetabulum and femoral head, and slight angulation of the articular surface. Large degenerative osteophyte versus sequela of remote trauma involving the superior rim of the left acetabulum. Mild narrowing of the superior aspect of the joint space. SOFT TISSUES:No visible soft tissue swelling. EFFUSION:None visible. OTHER: Negative. IMPRESSION: 1. No acute bone abnormality. 2. Moderate degenerative changes of the left hip joint; asymmetric compared to the right. Electronically authenticated by: DANICA HADDAD Date: 2022-01-01 07:57 [facility] Evaluation + Plan note Note Date & Type Note Facility Evaluation + Plan note No data available for this section [facility] Hospital Discharge instructions Note Date & Type Note Facility Hospital Discharge instructions No data available for this section [facility] Summary Purpose Family History No Family History Records FoundNo Family History Records Found Advance Directives No Advanced Directives Records FoundNo Advanced Directives Records Found Additional Source Comments (unrecognized sect ion and content) No Status Records FoundNo Status Records Found INFORMATION SOURCE (unrecogn ized section and content) DATE CREATED AUTHOR 01/15/2022 [facility] DATE CREATED AUTHOR AUTHOR'S TERESAIZ ATION 12/24/[address] [facility] FOR RECORDS PERTAINING TO PATIENTS WHO ARE OR HAVE BEEN ENROLLED IN A CHEMICAL DEPENDENCY/SUBSTANCEABUSE PROGRAM, SOME INFORMATION MAY BE OMITTED. This clinical summary was aggregated from multiple sources. Caution should be exercised in using it in the provision of clinical care. This summary normalizes information from multiple sources, and as a consequence, information in this document may materially change the coding, format and clinical context of patient data. In addition, data may be omitted in some cases. CLINICAL DECISIONS SHOULD BE BASED ON THE PRIMARY CLINICAL RECORDS. [facility]. provides no warranty or guarantee of the accuracy or completeness of information in this document.
== END 2024-11-03 19:54 | disposition home or self-care (01) ==
LOC: SLEEP 19:53
PROVIDERS: PCP Family Medicine; Visit Provider Family Medicine
DX: G47.33 Obstructive sleep apnea (adult) (pediatric) (principal); I27.20 Pulmonary hypertension, unspecified
CPT/HCPCS: 95811

== ENCOUNTER 2024-11-30 12:09 | Inpatient (IN) | payer OTHER, SELFPAY ==
[2024-11-30] VITALS (15 sets, daily range): BP systolic 92–138; BP diastolic 57–88; PULSE 60–83; TEMP 36.4–36.8; O2SAT 84–95; BMI 41.9; BMI 41.7
--- NOTE | 2024-11-30 12:18 | ECG_ITS ---
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
--- NOTE | 2024-11-30 12:19 | ED_ITS ---
HPI HPI - General Adult General Chief complaint: Shortness of Breath/Dyspnea Stated complaint: EDEMA Time Seen by Provider: 11/30/24 12:18 History of Present Illness HPI narrative: Patient is a 49-year-old male who is presenting to the ER with chief complaint of diffuse anasarca and swelling. Patient has gained approximate 21 pounds of water weight in the past month. Patient was admitted to the hospital last month and had approximately 35 pounds of water weight that was diuresed off the patient. Patient is a newer patient to Dr. Zavala. Patient was seen in the office today for swelling to his upper and lower eyelids, face, abdomen, legs and gaining 21 pounds water weight again. Patient has seen [facility]. Patient says that he is compliant with medication. Patient was short of breath and hypoxic when he was placed in room 2. Patient does not typically wear oxygen, patient's oxygen was 86% when he was placed into room 2 and he had increase in respiratory rate. All systems are negative except as noted/marked. All systems reviewed and ot herwise negative. Nurses note and vital signs reviewed and patient is not hypoxic. General: The patient appears well and in no apparent distress. Patient is resting comfortably on cart. Patient is not toxic, lethargic, or listless diffuse anasarca. Skin: Warm, dry, no pallor noted. There is no rash noted. No petechiae, purpura. Head: Normocephalic, atraumatic, patient has edematous upper and lower eyelids/above and below bilateral eyes equal swelling. Eye: Normal conjunctiva, no drainage, EOMI. PERRL Ears, Nose, Mouth, and Throat: oral mucosa is moist. Nares patent. Mouth without vesicles. Cardiovascular: Regular Rate and Rhythm, no murmur, gallop, rub Respiratory: Patient is in no distress, no accessory muscle use, lungs are clear to auscultation, no wheezing, rales or rhonchi Back: non-tender, no CVA tenderness bilaterally to percussion. No CT LS midline pain GI: Obese, 2-3+ pitting edema to abdomen. No tenderness to palpation, no masses appreciated. No rebound, guarding, or rigidity noted. No distention Musculoskeletal: Patient has full range of motion of all of the extremities, no motor, sensory, or focal neurological deficits. Patient has 3+ pitting edema to bilateral extremities, equal, venous stasis noted bilateral. Neurological: A&O x4, normal speech Psychiatric: Cooperative Related Data Home Medications ?Medication ?Instructions ?Recorded ?Confirmed meloxicam 15 mg tablet 15 mg PO DAILY 11/30/24 11/30/24 Previous Rx's ?Medication ?Instructions ?Recorded albuterol sulfate 90 mcg/actuation 2 inh inhalation Q6H dyspnea #8.5 11/01/24 aerosol inhaler (Ventolin HFA) grams bumetanide 1 mg tablet 1 mg PO DAILY #30 tabs 11/01/24 hydralazine 100 mg tablet 100 mg PO BID #60 tabs 11/01/24 isosorbide mononitrate 60 mg 60 mg PO DAILY #30 tabs 11/01/24 tablet,extended release 24 hr metoprolol tartrate 75 mg tablet 75 mg PO BID #60 tabs 11/01/24 Allergies Allergy/AdvReac Type Severity Reaction Status Date / Time No Known Drug Allergies Allergy Verified 10/26/24 11:16 Opioid HPI Opioid Management Most Recent Opioid Data: Last Pain Scale 0 11/01/24 09:00 11/01/24 Last Pain Intensity 3 10/27/24 09:00 10/27/24 Last Pain Assessment 11/30/24 15:10 Last ORT Total Score 0 11/30/24 13:54 11/30/24 Last ORT Risk Category Low Risk 11/30/24 13:54 11/30/24 [facility] Medical History (Updated 11/30/24 @ 13:02 by Vazquez Barahona MD) Pulmonary hypertension ?I27.20 - Pulmonary hypertension, unspecified (ICD-10) Pre-ulcerative calluses ?L84 - Corns and callosities (ICD-10) Acute exacerbation of COPD with asthma ?J44.1 - Chronic obstructive pulmonary disease with (acute) exacerbation (ICD-10) Hypertensive urgency ?I16.0 - Hypertensive urgency (ICD-10) Congestive heart failure ?I50.9 - Heart failure, unspecified (ICD-10) Oxygen dependent ?Z99.81 - Dependence on supplemental oxygen (ICD-10) Sleep apnea ?G47.30 - Sleep apnea, unspecified (ICD-10) Iron deficiency anemia ?D50.9 - Iron deficiency anemia, unspecified (ICD-10) Surgical History (Updated 11/30/24 @ 13:38 by Trang Agudelo) History of medial meniscus repair of left knee ?Z98.890 - Other specified postprocedural states (ICD-10) Family History (Updated 11/30/24 @ 13:39 by Trang Agudelo) Grandfather Family history of CHF (congestive heart failure) Family history of hypertension Family history of myocardial infarction Grandmother Family history of cancer Family history of hypertension Mother Family history of hypertension Social History (Updated 11/30/24 @ 13:40 by Trang Agudelo) Within the past year, how often did you have a drink containing alcohol: monthly or less Within the past year, how often did you have six or more drinks on one occasion: never Smoking status: Former smoker Non-prescribed substance use: denies use 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2 F 11/30/24 12:13 Pulse Rate 62 11/30/24 12:13 Respiratory Rate 34 H 11/30/24 12:13 Blood Pressure 138/88 11/30/24 12:13 Pulse Oximetry 84 L 11/30/24 12:13 Oxygen Delivery Method Room Air 11/30/24 12:13 Temperature 98.1 F 11/30/24 13:54 Pulse Rate 65 11/30/24 15:41 Respiratory Rate 18 11/30/24 15:41 Blood Pressure 113/81 11/30/24 13:54 Pulse Oximetry 95 11/30/24 15:41 Oxygen Delivery Method Nasal Cannula 11/30/24 15:41 Oxygen Delivery Flow Rate 2.5 11/30/24 15:41 Medical Decision Making MDM Narrative Medical decision making narrative: Patient has diffuse anasarca. Patient was told to go to outpatient lab work to have lab test done, and then to come to the ER to have IV established, EKG, chest x-ray, and patient will be placed on IV Bumex on the inpatient floor. Patient understands the process, and knows that he may be here for several days for diuresis. No other recommendations from Dr. Zavala. Dr. Mathews will be admitting the patient. BNP patient's BNP is 5445. Dr. Zavala did not want any medications started in the ER. Lab Data Labs: Lab Results 11/30/24 11/30/24 Range/Units 12:32 12:45 WBC 7.3 (4.0-11.0) 10^3/uL RBC 4.45 L (4.70-6.10) 10^6/uL Hgb 13.5 L (14.0-18.0) g/dL Hct 43.5 (42.0-54.0) % MCV 97.8 H (80.0-94.0) fL MCH 30.3 (25.9-34.0) pg MCHC 31.0 (29.9-35.2) g/dL RDW 13.5 (11.0-15.0) % Plt Count 273 (150-450) 10^3/uL MPV 10.6 (9.5-13.5) fL Neut % (Auto) 73.4 (43.0-75.0) % Lymph % (Auto) 16.2 L (20.5-60.0) % [place] % (Auto) 8.1 (1.7-12.0) % Eos % (Auto) 1.5 (0.9-7.0) % Baso % (Auto) 0.7 (0.2-2.0) % Neut # (Auto) 5.4 (1.4-6.5) 10^3/uL Lymph # (Auto) 1.2 (1.2-3.8) 10^3/uL [place] # (Auto) 0.6 (0.3-0.8) 10^3/uL Eos # (Auto) 0.1 (0.0-0.7) 10^3/uL Baso # (Auto) 0.1 (0.0-0.1) 10^3/uL Abs Immat Gran (auto) 0.01 (0.00-0.03) 10^3/uL Imm/Tot Granulo (auto) 0.1 (0.0-0.5) % VBG pH 7.351 (7.330-7.430) VBG pCO2 60.4 H (40.0-52.0) mmHg Sodium 142 (136-145) mmol/L Potassium 3.7 (3.5-5.1) mmol/L Chloride 104 (98-107) mmol/L Carbon Dioxide 34.0 H (21.0-32.0) mmol/L Anion Gap 7.7 BUN 25.0 H (7.0-18.0) mg/dL Creatinine 1.03 (0.70-1.30) mg/dL Est GFR ( Amer) >60 (>=60 mL/min/1.73m^2) Est GFR (Non-Af Amer) >60 (>=60 mL/min/1.73m^2) BUN/Creatinine Ratio 24.3 Glucose 141 H (74-106) mg/dL Lactate 1.0 (0.4-2.0) mmol/L Calcium 8.9 (8.5-10.1) mg/dL Total Bilirubin 0.4 (0.2-1.0) mg/dL AST 20 (15-37) U/L ALT 21 (16-63) U/L Alkaline Phosphatase 119 H (46-116) U/L Troponin I High Sens 43.3 (4.0-76.1) pg/mL NT-Pro-B Natriuret Pep 5445.0 H* (<=900.0) pg/mL Total Protein 6.7 (6.4-8.2) g/dL Albumin 3.6 (3.4-5.0) g/dL Globulin 3.1 g/dL Albumin/Globulin Ratio 1.2 Free T3 2.42 (2.18-3.98) pg/mL TSH & Free T4 Interp 0.961 (0.358-3.740) uIU/mL ECG Data Attestation: I personally reviewed and interpreted this ECG as follows: (EKG interpretation. Normal sinus rhythm at 58 beats a minute. Artifact seen, QTc of 406. Right bundle branch block noted) Discharge Plan Discharge Chief Complaint: Shortness of Breath/Dyspnea Clinical Impression: Anasarca, Hypoxia Patient Disposition: Admitted As Inpatient Time of Disposition Decision: 12:25 Condition: Fair Discharge Date/Time: 11/30/24 13:20
[2024-11-30 12:44] LABS: Basophils Absolute Auto 0.1 10^3/uL (0.0-0.1); Basophils Percent Auto 0.7 % (0.2-2.0); Eosinophils Absolute Auto 0.1 10^3/uL (0.0-0.7); Eosinophils Percent Auto 1.5 % (0.9-7.0); Hematocrit 43.5 % (42.0-54.0); Hemoglobin 13.5 g/dL (14.0-18.0); Immature Granulocytes Abs Auto 0.01 10^3/uL (0.00-0.03); Immature Granulocytes Pct Auto 0.1 % (0.0-0.5); Lymphocytes Absolute Auto 1.2 10^3/uL (1.2-3.8); Lymphocytes Percent Auto 16.2 % (20.5-60.0); Mean Corpuscular Hemoglobin 30.3 pg (25.9-34.0); Mean Corpuscular Volume 97.8 fL (80.0-94.0); Mean Platelet Volume 10.6 fL (9.5-13.5); Monocytes Absolute Auto 0.6 10^3/uL (0.3-0.8); Monocytes Percent Auto 8.1 % (1.7-12.0); Neutrophils Absolute Auto 5.4 10^3/uL (1.4-6.5); Neutrophils Percent Auto 73.4 % (43.0-75.0); Platelet Count 273 10^3/uL (150-450); Red Blood Count 4.45 10^6/uL (4.70-6.10); Red Cell Distribution Width 13.5 % (11.0-15.0); White Blood Count 7.3 10^3/uL (4.0-11.0)
[2024-11-30 12:49] LABS: pH VBG 7.351 (7.330-7.430)
[2024-11-30 12:50] LABS: PCO2 VBG 60.4 mmHg (40.0-52.0)
[2024-11-30 13:03] LABS: Alanine Aminotransferase 21 U/L (16-63); Albumin Globulin Ratio 1.2; Albumin Level 3.6 g/dL (3.4-5.0); Alkaline Phosphatase 119 U/L (46-116); Anion Gap 7.7; Aspartate Amino Transferase 20 U/L (15-37); BUN Creatinine Ratio 24.3; Bilirubin Total 0.4 mg/dL (0.2-1.0); Calcium 8.9 mg/dL (8.5-10.1); Chloride 104 mmol/L (98-107); Estimated GFR (African America >60 (>=60 mL/min/1.73m^2); Estimated GFR (Non-African Ame >60 (>=60 mL/min/1.73m^2); Globulin 3.1 g/dL; Glucose 141 mg/dL (74-106); Potassium 3.7 mmol/L (3.5-5.1); Sodium 142 mmol/L (136-145); Total Protein 6.7 g/dL (6.4-8.2)
[2024-11-30 13:13] LABS: Free T3 2.42 pg/mL (2.18-3.98); TSH W/ REFLEX FT4 0.961 uIU/mL (0.358-3.740); Troponin I High Sensitivity 43.3 pg/mL (4.0-76.1)
--- OUTSIDE RECORDS SUMMARY | 2024-11-30 13:47 | XMS_ITS | CCD ---
Author Organization [facility] Care Team Providers Care Firing Pin Gauger Name Role Phone NONE, XXXX Primary Care Physician Unavailab polo MORA ., BENJAMIN Attending Unavailable MORGNA ., BENJAMIN Admitting Unavailable REQUEST, DR NONE [...] Facil ity Coding Summary.on 01-15-2022 Coding Summary. CD:[id number] G h0bWw+PGhlYWQ+TF3LQKS wK22ofZNtiL5DP4rJWX7A RLBTEEZLFB6WXY7nrMX3S TibF5WtxrYi QomjaVZeGP75FDa9MGP1r RoeCTjyoG5ztDYmQ8v2Ap JkSG62oM08SZpbXSHoIbZ 3LjZpbjsgbWFy A9tnAcSgiANwCcd+PHRhY mxlIHdpZHRoPScxMDAlJy ZaiKzxZQ6yWz1eNMIsQRY vbGxhcHNlOiBj f7uyNCMrJSsiJA7tpFxiW 1FeiHJ5VBAjm3n5Si51zP I+GLQsRQW7yFmiQOtaz00 3FrNrf1waTNO7 eJStWKwvTEE5N27sd6O0H XHxMVQbKFB2tIV9jX4ftS yqbzqxB5XzwPKcQqH3JSK 0rKHmnI4gnLcl teoleA8kBzx+M55IIK9RB JJDVN8SNer4S7NpQkbdaZ I+OX33XONsLD08xHEkrQE qd6lesZq3PfIz DUPdRGW7tVnqNEgaa1NqV FCnK74brCQcz8S3PAOevV fqqHUjDcRubLB9wW4eRJi yciqlt8xonlpb Nsvos3kasx27yF89A83fF WazFRGlKLZ3LSXpYFQmhZ bqlt8lrG4oMn7+DGpzm0s km7gyeYw0PwJp QZPvzuJmoEvqHRR1o9VyC q34S8IffWfzs0AoSyd6kn 40jRPxa1J8wDF1LBzrRPP ceG8pMMqaWmH4 XCCbIzBydO34tJZfUVpcW p1ypEbveUigUS0eJXWvhj giJGTvrU4rJEZviXYccIl aYK7zJXCkafyw k075EkOgTWV4QTPeiSAuH 1JutU9lAmHgKORcNGVyG8 OlgOUlTCbgN599TTeyObZ 7WAZfebUrC1Ug ADWvsGyqAnJ3h2K7Vs6Eo 7FnsgbdDEI0URenVEO1Nq Q2QeCfDiR9E2BbFfa3NUR ogZwmZX2hR7Ro GSXtrvlrzmshwFE6MDVyQ CHjiV98iTWcSDbkGx4ua2 J8q766FCZxSTGocM88Af2 udDogMTBwdCBU nF4rkulnb7jyxqgdScNzS MDkDJg5XTu1AYPclBueYz KeYMS4FwK7NNP5yVMqyY9 qeHvqiuhprO0e Oyc+I62ahH6lNCH0LHC0d mycZGNqsuMfON52TA24P8 RyPjwvdGFibGU+PGRpdiB glYhiGR9kXzDp a9uab0UeFQfdE1FdBPFkD YntHoy4HTZzGWM5yEQ7lD 7fEGKlXGqpq5U5fXL5I8J oueSebo7fs7co GDMwWVxxW71gwSMnz0E7T MRxpOK2EWYloKuwXrKrzQ 93Oyc+LUFdgRugj3OlAtn po7nxj8ehhNt9 DnCpZPNcnwEldIxaCXG2m 2JxHj95M28yZCoxHYJfHM AwKTVjUHZkuUokzg6vwG9 wIi8+PGNvbCB3 xFL8qA9aWDYlMdE7NFuxS 402UoZmlIFsZqtwk6ayt5 kzzHz6WyIiTXVahwEmiFg tFTJ9i5AyVq88 R28eQBeeMOIzOPSdYGOhA EEqxGlnsa3zbQ8mHg6+PC 2ap9zlgz52jX88iOS+PHR sRHA4iZuvTGzn YMCnaV9gQTmrRfG2XVRyD eRawH65kWStRYwqIf8xcA jnzHpnWQ0pNNAxbxdeq71 3XaHgx3maTJFh sDDjJYdaPNV4I51zo0B9F DUjHFHgBMR1tZY0wM2rjM lnbjogbGVmdDsgdmVydGl oHMnyHYgrD314 IHRvcDsnPlBhdGllbnQgT dLsAKm4K3LmNpo3KLDlbD ynNW6wrPNiCRefJh5biHm ggDquKU7qUQEs vbpqo430ErOlu2qzRKAlt UTwSIxsBXL9W85op6O4VN QtEPZoYKU5uLJ6iW7uqKg nbjogbGVmdDsg moBifBjiKKelIVdiZ093J HRvcDsnPkJpcnRoIERhdG W3NR22MB70tGFxz9B3mWC 7D4XcYNRynodc jsighCU1OVDhTNPqgQ97T h0ggUgbTo9fKOAbZEQ7WG AdgGZlT1WxbC5aAwQqCUW aLHSeG4DohIEz OYhsR954GKunJdA8AAIia xFrP2ZyTPWbnDlsYkQ7s9 J4Mc8RF8O6PW27IS82sZZ mq0S0tBS5B3Hk CRWwwkmzvydvvKL8KULpR IOgjT81Os2foCmqIe6cUL FkOCD2MZQgqIMvJ3SxnO7 yOiAjMDAwMDAw P6LfwKGkUQioQ551MJtbC pI8DPDznbIaS3FePXLgjI eqKnJ1v5D1Mq2GMVt3YN0 6UH47tWJis9Q4 oHB2J9QoTUZrxhfrblpdq PY9TOWqQVWdhB71Dl7pbU ovKq4pWFMpIBS8BJDfaUT kU9DitD3sCtYu ZQWjOMHxC1QkoFHoOCsbN 793AUrlPlE6UNXgjwKnT5 OwJCOxlCkfWgA4r6C5Cs4 MMXLaAE18LDA8 iLS9SH13FC73M3BqOmbis GFibGU+PHRhYmxlIHdpZH RoPScxMDAlJyBzdHlsZT0 yBl0jVABvJWDn sMdtlJGpYnPdf5faQYGnK YdnME4crHweS9XroWZ8HQ Atx4h6Kg55L34wM6AnsLC +ZLVdzNG5eRE2 dO9rOdIlWcO8BCcaK586B lQheGDtYzuee3qze3sngG q8LnC6GLMqydRdlWcgQJP 6l7BjDr97D68e IHdpZHRoPSIxNSUiIHZhb Nxoyq3fbA2wIl5+PGNvbC B0wAS7lB6hYtPiTqH2KKd pX279EpSfhKMw Jvfyy7grk8iedTm3GtKsG RMpleQdnArlNHS6v1KyNx 39H5GhsVptp5JyKgm5lj4 9hDIni8K7hIK1 T1IhHEWavwgfuXNoeYugS C4xYQCdcrcdANMatP1wMM YqZ7l7GnTzLzM3IXczC5F sflR8PNXdwWAp YPdfDDK5C45ul4X0CRVlW QLwMJR0rJI4sG4cbVhltd ogbGVmdDsgdmVydGljYWw pDHbiD644JMVl pSzyCZIwhE1sFHHahAViv JsrXO6qZTRxehoaHhrUMU HDUqTxGGtFMFSSPN77OK4 8kRKes1V7wKW3 T2DjPCNpdmnsywbjwYO7I VLtIQZceN14eCKiAIenQx 3xc4Y0p274NSBsQRKooX7 5Jk8qiNrrDLFf fCSLpA3xvtopj1doptigL nLeQXLvMUe7YIx2KBUxhD hxJkLsOWA2CtF4KUT0aKX rcB9hxCkrayfk iY9yRgt+QMRoWfQiEUa8J zwvdGQ+PENpLNL3rMhkQQ diJFAxcP7jTEXnN8h5MwB uEyY0BWfeS8Of IEXuzmniKt28yF8aZiUtQ aR5PBldQ8EcwbH8IQOmzK KqBSmcJDA2C67wi9E6LCL dZJTzTBT6ePN8 eO1vgMdnddpgyXJniUcvq qBgfQphLRnsDObuB226NW JfwZhzZhX7QThhHJBnIP8 4ON81tNHwi3K0 mUU8K4ZvNRXgzygfgmypu CI4XPHtSLSzaY43iDFmRX osGb2ac2L2r085IIFxUFP ntB65Mp7jzFkw QPWklDKHzY9sdskxz5jdq nehMdAmHEVcTLx7TJn0AR ViqVrhIbKxEJT6VeO3OUB 8cNRpzK5ejWrc rbanyP1jRgk+TWFsZTwvd GQ+MHEzUVD9oCgvBVceXX EenA3xIOQsR4c7GwKaMjO 9EJypF3FaZOOv itqhOr24bX5qGaPmXfT5L RxaL6JvnrK9WWRlfFReLL buWOE0M40hh9M0GPLkDJT dFVU7lVX4qO5h bGlnbjogbGVmdDsgdmVyd PjzCTzpRBpnZ188DVAbaC eoDc76mQKzdDmxlhP0U0Z kPjwvdHI+PC90 GOQlNJ49dJYtmBMkn3pqt Ho3WmGzIRGpWBP6pOkiYS zja7EnCBWcA23cnBAwv2U 6IGNvbGxhcHNl MxMcnBA0hT9cCJtcbzovu 0nzfcsdGyutz5gigx58qE 41K95cZCjpEFUlKDWqSAW lFSLgoTegin4p pN3aJp1+IFTviNV6jPY4k H2eOeCpJoE2OOuxA805Rr VjfHZuKoiun3uay9fgsUj 9IjIwJSIgdmFs lXjbJXB7h1KePw42W16qM HdpZHRoPSIyMCUiIHZhbG vgpe4wvT7tCv9+NT9xx4s gvn60zU38yRR+ BDDeEBL7uLpgFHkhQMZgh F2nOFutCzI5MSFfArKhaG 91sVBuLPlhVu6alTgvpHf hVQ9kAHJeqzyg s592YiHfw5gdLBFnrCNuK OfqGXJ5M65tr2B1DCYaUM XeIMI8aKB9kP7geDtnpth gbGVmdDsgdmVy hEptSKgpQPavT129HBYsa VldDtJeuSYzS3uzlhGUUM 1lOjwvdGQ+MSAgODH8zQg bHQlfRLUjgK7a KSIvX4a1XyLtXlV4RYleQ 3FnvoB9YXCxmBTwYLVinS IRoY3srnygy5ybockfWdL pEKFmOAi8HAu3 YSKbtQhdMaKsLLO5WvR3D VH3yHDbbA6hyXotayyvnT 9wOyc+RklOOjwvdGQ+PHR jIGM1uCdvQTwy VXLvvX4qEFQtQ7i3CmByU kL9UGhfK5YahfQ1JFIujM XvAAYroHJZqI1wlalph3y vcjogIzAwMDAw TPm8EZc1MKScuLatOcOsK BC5PpR9ARL5vGSgrF7anZ hmdiivxT2gGbq+TVJOOjw vdGQ+PHRkIHN0 aKtdLIekQPJkuA3xNACzW 9y3ToVcFqJ0GIfnY9Cbev K9KTTpyCTrTCVvgBHFjD3 cqjtxq6gvzooh MtQdSMDqHFc2GFv9PNRrk IsdMsAmXQA4RbD1RRT6zP SavS6hwRctrvkliX0yAru +UHK0FBU2BK08 GT58U4LrIxtvpSRsvXV+P HRhYmxlIHdpZHRoPScxMD RsLgKyeTaqFM2sSs9jKUK yLWNvbGxhcHNl OiBj (more content not included)... Normal [facility] Consent for Treatmenton Consent for Treatment [id number]#1 .00CD:127 Normal [facility] Operative Reporton Operative Report SURGERY DATE: 01/05/2022 [...] patient is met in the [facility] Radiology. The patient is placed supine on [...] today. Ori Dillard D.O. ls Dictated: 01/05/2022 [id number] Transcribed: 01/05/[address] [facility] Comment on above: Result Comment: Elec tronically Signed By: Ori Dillard DO\.br\Date and Time Signed: 01/05/22 12:49 EDT RAD - Consent to Procedureon 01-05-2022 RAD - Consent to Procedure [id number] .00CD:[address] [facility] Physician Orderon 01-04-2022 Physician Order [id number]# 1.00CD:[address] [facility] Physician Order [id number]#1. 00CD:[address] [facility] Physician Order [id number] .00CD:[address] [facility] Physician Orderon 01-03-2022 Physician Order [id number] .00CD:[address] [facility] Physician Order [id number]. 00CD:[address] [facility] Encounters Encounter Date Encounter Type Care Provider Facility Start: 12-21-2022 End: 12-21-[address] HADLEY MATOS . Facility:[facility] Start: 08-11-2022 End: 08-11-2022 ambulatory BENJAMIN MORA . Facility:[facility] Start: 01-05-2022 End: 01-05-2022 Patient encounter procedure Ori Dillard [facility] Start: 01-01-2022 End: 01-01-2022 ambulatory SHAUNA FIELD Facility:[facility] Procedures Date Procedure Procedure Detail Performing Clinician None (qualifier value) Ori Dillard Payers Date Payer Category Payer Unknown [id number] [id number] [id number] 1975 Unknown [id number] 1975 Unknown [id number] 1961 Unknown [id number] Social History Date Type Detail Facility Tobacco Current, Cigaret nimesh, 10 per day. [facility] Sex Assigned At Male [facility] Clinical Note 01-01-2022 Note Date & Type [...] by: DANICA HADDAD Date: 2022-01-01 07:57 [facility] Evaluation + Plan note Note Date & Type Note Facility Evaluation + Plan note No data available for this section [facility] Hospital Discharge instructions Note Date & Type Note Facility Hospital Discharge instructions No data available for this section [facility] Summary Purpose Family History No Family History Records FoundNo Family History Records Found Advance Directives No Advanced Directives Records FoundNo Advanced Directives Records Found Additional Source Comments (unrecognized sect ion and content) No Status Records FoundNo Status Records Found INFORMATION SOURCE (unrecogn ized section and content) DATE CREATED AUTHOR 01/15/2022 [facility] DATE CREATED AUTHOR AUTHOR'S TERESAIZ ATION 12/24/[address] [facility] FOR RECORDS PERTAINING TO PATIENTS WHO ARE [...] BE BASED ON THE PRIMARY CLINICAL RECORDS. [facility]. provides no warranty or guarantee of the accuracy or completeness of information in this document.
--- NOTE | 2024-11-30 14:23 | SWNOTE1 ---
SW spoke to nurse and pt was not sure where is home oxygen was from and the liter flow. SW to call [place] as this is where his emergency BIPAP was from.
--- NOTE | 2024-11-30 14:33 | SWNOTE1 ---
SW called [facility] 4 times and no answer.
--- NOTE | 2024-11-30 14:42 | SWNOTE1 ---
SHANNAN spoke to Melinda at [facility] in regards to pt's home oxygen. She stated Dr. Zavala just sent in a new script for 4 liters continuous nasal canula.
--- NOTE | 2024-11-30 14:44 | SWNOTE1 ---
Pt also has a home Bipap.
--- NOTE | 2024-11-30 14:58 | SWNOTE1 ---
SW spoke to pt and he voiced he was doing alright at home. Voiced he was wearing his home oxygen and BIPAP. Pt has no concerns about discharge at this time. SW to follow as needed.
[2024-11-30] MEDS: BUMETANIDE 10 MG in 0.9 % SODIUM CHLORIDE 160 ML 20 MG IV (15:07)
[2024-11-30] MEDS: SPIRONOLACTONE 25 MG TABLET PO (15:07)
--- NOTE | 2024-11-30 19:42 | P.HP_ITS ---
HPI H&P: HPI History of Present Illness Chief complaint: EDEMA, anasarca Narrative: Patient is evaluated in the office with increasing shortness of breath, also found to have 21 pound weight gain, been taking his medicines pretty consistently no change in diet just an acute flareup of his acute combined congestive heart failure In ER found to have significant hypoxia as well as increased BNP O2 sat of 82% on room air Opioid HPI Opioid Management Most Recent Pain and Opioid Data: Last Pain Scale 0 11/01/24 09:00 11/01/24 Last Pain Intensity 3 10/27/24 09:00 10/27/24 Last Pain Assessment 11/30/24 19:00 Last ORT Total Score 0 11/30/24 13:54 11/30/24 Last ORT Risk Category Low Risk 11/30/24 13:54 11/30/24 Review of Systems ROS Status of ROS 10 or more systems reviewed and unremark able except as noted in history and below PFSH PFS Medical History (Updated 11/30/24 @ 19:43 by Mike Zavala MD) Pulmonary hypertension ?I27.20 - Pulmonary hypertension, unspecified (ICD-10) Pre-ulcerative calluses ?L84 - Corns and callosities (ICD-10) Acute exacerbation of COPD with asthma ?J44.1 - Chronic obstructive pulmonary disease with (acute) exacerbation (ICD-10) Hypertensive urgency ?I16.0 - Hypertensive urgency (ICD-10) Congestive heart failure ?I50.9 - Heart failure, unspecified (ICD-10) Oxygen dependent ?Z99.81 - Dependence on supplemental oxygen (ICD-10) Sleep apnea ?G47.30 - Sleep apnea, unspecified (ICD-10) Iron deficiency anemia ?D50.9 - Iron deficiency anemia, unspecified (ICD-10) Surgical History (Updated 11/30/24 @ 13:38 by Trang Agudelo) History of medial meniscus repair of left knee ?Z98.890 - Other specified postprocedural states (ICD-10) Family History (Updated 11/30/24 @ 13:39 by Trang Agudelo) Grandfather Family history of CHF (congestive heart failure) Family history of hypertension Family history of myocardial infarction Grandmother Family history of cancer Family history of hypertension Mother Family history of hypertension Social History (Updated 11/30/24 @ 13:40 by Trang Agudelo) Within the past year, how often did you have a drink containing alcohol: monthly or less Within the past year, how often did you have six or more drinks on one occasion: never Smoking status: Former smoker Non-prescribed substance use: denies use 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 Highest level of school completed/degree received: some college, no degree Little interest or pleasure in doing things: not at all Feeling down, depressed, or hopeless: not at all Feel stressed/tense/nervous/anxious/difficulty sleeping: not at all Gender Identity: male Meds Home Medications and Allergies Home Medications ?Medication ?Instructions ?Recorded ?Confirmed ?Type albuterol sulfate 90 mcg/actuation 2 inh inhalation Q6H dyspnea #8.5 11/01/24 11/30/24 Rx aerosol inhaler (Ventolin HFA) grams bumetanide 1 mg tablet 1 mg PO DAILY #30 tabs 11/01/24 11/30/24 Rx hydralazine 100 mg tablet 100 mg PO BID #60 tabs 11/01/24 11/30/24 Rx isosorbide mononitrate 60 mg 60 mg PO DAILY #30 tabs 11/01/24 11/30/24 Rx tablet,extended release 24 hr metoprolol tartrate 75 mg tablet 75 mg PO BID #60 tabs 11/01/24 11/30/24 Rx meloxicam 15 mg tablet 15 mg PO DAILY 11/30/24 11/30/24 History Allergies Allergy/AdvReac Type Severity Reaction Status Date / Time No Known Drug Allergies Allergy Verified 10/26/24 11:16 Exam Constitutional Vital Signs, click to edit/add: Last Vital Signs Temp 98.1 F 11/30/24 19:00 Pulse 68 11/30/24 19:41 Resp 16 11/30/24 19:00 BP 132/57 11/30/24 19:00 Pulse Ox 91 L 11/30/24 19:00 O2 Del Method Nasal Cannula 11/30/24 19:00 O2 Flow Rate 3 11/30/24 19:00 Documenting provider has reviewed patient's vital signs: yes Common normals: apparent distress (Moderate respiratory distress secondary ) Eye General eye: abnormal appearance of eye(s) (Moderate swelling consistent with fluid accumulation around the eyes) Chest Common normals: inspection of chest normal Respiratory Common normals: abnormal respiratory effort (Moderate respiratory distress) Cardio Common normals: regular rate, regular rhythm and no murmurs GI Common normals: soft to palpation; negative for Normal to inspection, nondistended, normoactive bowel sounds present (Morbid obesity) Extremity Common normals: abnormal to inspection (4+ edema) Results Labs Labs: Short CBC 11/30/24 Range/Units 12:32 WBC 7.3 (4.0-11.0) 10^3/uL Hgb 13.5 L (14.0-18.0) g/dL Hct 43.5 (42.0-54.0) % Plt Count 273 (150-450) 10^3/uL BMP 11/30/24 12:32 Sodium 142 Potassium 3.7 Chloride 104 Carbon Dioxide 34.0 H BUN 25.0 H Creatinine 1.03 Glucose 141 H Calcium 8.9 Liver Function 11/30/24 Range/Units 12:32 Total Bilirubin 0.4 (0.2-1.0) mg/dL AST 20 (15-37) U/L ALT 21 (16-63) U/L Alkaline Phosphatase 119 H (46-116) U/L Albumin 3.6 (3.4-5.0) g/dL ABG ABG results: 11/30/24 12:32 VBG pH 7.351 VBG pCO2 60.4 H Assessment and Plan Assessment and Plan (1) Hypoxia: (2) Anasarca: (3) Pulmonary hypertension: (4) Acute exacerbation of COPD with asthma: (5) Congestive heart failure: Plan Admission findings: Respiratory distress, acute hypoxic respiratory distress with O2 sat of 82%, secondary to acute combined congestive heart failure Acute combined congestive heart failure-on his last admission he diuresed a total of 42 L, with a net of 35 L, he is not quite in that better shape but de finitely trending that direction with a 21 pound weight gain-will check echocardiogram, he responded well to Bumex drip without increase in his creatinine, also add Entresto, maintain hydralazine beta-debbie and nitrates Severe pulmonary hypertension-maintain the hydralazine, adding the Entresto Asthma-continue with home medications, not acute flareup Admission status: Patient with acute hypoxia and severe flareup of his acute combined congestive heart failure complicated by severe pulmonary hypertension, medically necessary treatment will span 2 midnights. Inpatient status.
[2024-11-30] MEDS: METOPROLOL TARTRATE 50 MG TABLET 75 MG PO (20:54)
[2024-11-30] MEDS: HYDRALAZINE HCL 50 MG TABLET 100 MG PO (20:55)
[2024-11-30] MEDS: SACUBITRIL/VALSARTAN 24 MG-26 MG TABLET 1 TAB PO (20:55)
[2024-12-01] VITALS (23 sets, daily range): BP systolic 91–130; BP diastolic 55–84; PULSE 54–73; TEMP 36.3–37; O2SAT 79–95
--- NOTE | 2024-12-01 04:12 | RESP.RT ---
Pt sleeping with home bipap/cpap on with 2L 02 bleed in. Titrated 02 bleed in with home bipap/cpap up to 5L and Sp02 only increased to 82%. Pt woke up and home bipap/cpap was removed and RT placed 4L nasal cannula on patient and Sp02 increased to 90%-92%.
[2024-12-01 05:50] LABS: Basophils Absolute Auto 0.1 10^3/uL (0.0-0.1); Basophils Percent Auto 0.8 % (0.2-2.0); Eosinophils Absolute Auto 0.3 10^3/uL (0.0-0.7); Eosinophils Percent Auto 2.6 % (0.9-7.0); Hematocrit 46.9 % (42.0-54.0); Hemoglobin 14.7 g/dL (14.0-18.0); Immature Granulocytes Abs Auto 0.02 10^3/uL (0.00-0.03); Immature Granulocytes Pct Auto 0.2 % (0.0-0.5); Lymphocytes Absolute Auto 1.7 10^3/uL (1.2-3.8); Lymphocytes Percent Auto 16.5 % (20.5-60.0); Mean Corpuscular HGB Conc 31.3 g/dL (29.9-35.2); Mean Corpuscular Hemoglobin 30.8 pg (25.9-34.0); Mean Corpuscular Volume 98.1 fL (80.0-94.0); Mean Platelet Volume 10.4 fL (9.5-13.5); Monocytes Absolute Auto 1.2 10^3/uL (0.3-0.8); Monocytes Percent Auto 11.2 % (1.7-12.0); Neutrophils Absolute Auto 7.2 10^3/uL (1.4-6.5); Neutrophils Percent Auto 68.7 % (43.0-75.0); Platelet Count 323 10^3/uL (150-450); Red Blood Count 4.78 10^6/uL (4.70-6.10); Red Cell Distribution Width 13.4 % (11.0-15.0); White Blood Count 10.4 10^3/uL (4.0-11.0)
[2024-12-01 06:14] LABS: Alanine Aminotransferase 23 U/L (16-63); Albumin Globulin Ratio 1.1; Albumin Level 3.7 g/dL (3.4-5.0); Alkaline Phosphatase 125 U/L (46-116); Anion Gap 5.1; Aspartate Amino Transferase 23 U/L (15-37); Bilirubin Total 0.7 mg/dL (0.2-1.0); Calcium 9.3 mg/dL (8.5-10.1); Carbon Dioxide 41.4 mmol/L (21.0-32.0); Chloride 102 mmol/L (98-107); Estimated GFR (African America >60 (>=60 mL/min/1.73m^2); Estimated GFR (Non-African Ame 58 (>=60 mL/min/1.73m^2); Globulin 3.4 g/dL; Glucose 86 mg/dL (74-106); Potassium 3.5 mmol/L (3.5-5.1); Sodium 145 mmol/L (136-145); Total Protein 7.1 g/dL (6.4-8.2)
--- NOTE | 2024-12-01 06:40 | P.PN_ITS ---
Progress Note: Subjective Subjective Interval history: Breathing feels somewhat better today. Exam Constitutional Vital Signs, click to edit/add: Last Vital Signs Temp 98.2 F 12/01/24 03:00 Pulse 69 12/01/24 05:52 Resp 16 12/01/24 03:00 BP 91/55 12/01/24 03:00 Pulse Ox 91 L 12/01/24 04:48 O2 Del Method Nasal Cannula 12/01/24 04:48 O2 Flow Rate 4 12/01/24 04:48 Documenting provider has reviewed patient's vital signs: yes Common normals: apparent distress (Moderate respiratory distress secondary ) Eye General eye: abnormal appearance of eye(s) (Down to mild swelling consistent with fluid accumulation around the eyes) Chest Common normals: inspection of chest normal Respiratory Common normals: abnormal respiratory effort (Moderate respiratory distress) Cardio Common normals: regular rate, regular rhythm and no murmurs GI Common normals: soft to palpation; negative for Normal to inspection, nondistended, normoactive bowel sounds present (Morbid obesity) Extremity Common normals: abnormal to inspection (4+ edema persisting) Progress Note: Objective Labs Labs: Short CBC 11/30/24 12/01/24 Range/Units 12:32 05:25 WBC 7.3 10.4 (4.0-11.0) 10^3/uL Hgb 13.5 L 14.7 (14.0-18.0) g/dL Hct 43.5 46.9 (42.0-54.0) % Plt Count 273 323 (150-450) 10^3/uL BMP 11/30/24 12/01/24 12:32 05:25 Sodium 142 145 Potassium 3.7 3.5 Chloride 104 102 Carbon Dioxide 34.0 H 41.4 H BUN 25.0 H 26.0 H Creatinine 1.03 1.30 Glucose 141 H 86 Calcium 8.9 9.3 Liver Function 11/30/24 12/01/24 Range/Units 12:32 05:25 Total Bilirubin 0.4 0.7 (0.2-1.0) mg/dL AST 20 23 (15-37) U/L ALT 21 23 (16-63) U/L Alkaline Phosphatase 119 H 125 H (46-116) U/L Albumin 3.6 3.7 (3.4-5.0) g/dL Progress Note: A&P Assessment and Plan (1) Hypoxia: (2) Anasarca: (3) Pulmonary hypertension: (4) Acute exacerbation of COPD with asthma: (5) Congestive heart failure: Plan Admission findings: Respiratory distress, acute hypoxic respiratory distress with O2 sat of 82%, secondary to acute combined congestive heart failure,, at home he has been weaned able to be weaned off of his supplemental oxygen during the day and only wears it at bedtime. Acute combined congestive heart failure-on his last admission he diuresed a total of 42 L, with a net of 35 L, he is not quite in that better shape but definitely trending that direction with a 21 pound weight gain-check on echocardiogram, repeat Bumex drip again today. Likely needs 2-3 more days Iron deficiency anemia-monitor daily Severe pulmonary hypertension-maintain the hydralazine, adding the Entresto Asthma-continue with home medications, not acute flareup Admission status: Patient with acute hypoxia and severe flareup of his acute combined congestive heart failure complicated by severe pulmonary hypertension, medically necessary treatment will span 2 midnights. Inpatient status. ?
--- NOTE | 2024-12-01 08:35 | CM.NOTE ---
Rounds made with Dr. Zavala, continue diuresing today. Pt does verbalize his breathing has improved. Pt remains on 4L NC. No discharge today.
[2024-12-01] MEDS: SACUBITRIL/VALSARTAN 24 MG-26 MG TABLET 1 TAB PO ×2 (08:40→22:25)
[2024-12-01] MEDS: BUMETANIDE 10 MG in 0.9 % SODIUM CHLORIDE 160 ML 20 MG IV (08:40)
[2024-12-01] MEDS: HYDRALAZINE HCL 50 MG TABLET 100 MG PO ×2 (08:40→22:25)
[2024-12-01] MEDS: METOPROLOL TARTRATE 50 MG TABLET 75 MG PO ×2 (08:40→22:25)
[2024-12-01] MEDS: ISOSORBIDE MONONITRATE 60 MG TAB.ER.24H PO (08:41)
[2024-12-01] MEDS: SPIRONOLACTONE 25 MG TABLET PO (08:41)
[2024-12-01] MEDS: MELOXICAM 7.5 MG TABLET 15 MG PO (08:41)
--- NOTE | 2024-12-01 14:01 | CA_ITS ---
Patient Name: AUBRIE SWEENEY MR#: [id number] : 1975 Exam Date: 12/01/2024 Ordering Doctor: DR CALLUM WEINSTEIN . ECHOCARDIOGRAM REPORT PROCEDURE: CA ECHO LIMITED INDICATIONS: Dyspnea, elevated BNP, hypertension, CHF COMPARISON: None. DESCRIPTION: Limited ECHOCARDIOGRAM Real-time transthoracic echocardiography with 2D and M-mode performed. QUALITY: Technical quality was good. Limited echocardiogram per physician order. LEFT VENTRICLE: Normal chamber size. Moderate concentric left ventricular hypertrophy. Normal systolic function. D-shaped septum consistent with right ventricular pressure and/or volume overload. LV EF: Normal left ventricular ejection fraction, (>55%). DIASTOLIC: ATRIAL SEPTUM: LEFT ATRIUM: Normal chamber size. RIGHT ATRIUM: Moderate dilatation. RIGHT VENTRICLE: Severe dilatation. Systolic function is moderately reduced. TRICUSPID VALVE: Normal mobility and thickness. MITRAL VALVE: Normal mobility and thickness. There is no mitral annular calcification. AORTIC VALVE: Normal trileaflet appearance. No visible sclerosis. Normal leaflet mobility. AORTIC ROOT: Normal diameter and appearance. PULMONIC VALVE: Normal thickness and mobility. PERICARDIUM: No evidence of pericardial effusion. IVC: Not well visualized. PLEURA: CONCLUSION: 1. Moderate concentric left ventricular hypertrophy with normal systolic function. Estimated LVEF is 65%. 2. Severely dilated right ventricle with reduced systolic function. 3. Severe right atrial dilatation. 4. No pericardial effusion. 5. Limited study performed with no Doppler interrogation as requested. Adult Echocardiography Procedure Report Left Ventricle LVEDD (3.7 - 5.6 cm): 4.51 cm LVESD (2.2 - 4.0 cm): 2.34 cm LVIVS thickness (0.6 - 1.2 cm): 1.74 cm LVPW thickness (0.5 - 1.0 cm): 1.39 cm LVOT Diameter 2.10 cm Left Atrium Left Atrium Systolic Dimension: 4.30 cm Mitral Valve Right Ventricle Aorta AO Root Diam: 4.28 cm Aortic Valve Tricuspid Valve Pulmonic Valve Right Atrium Right Atrium Systolic Pressure: 98.22 ml, 98.22 ml Dictated by: David Lopez M.D. on 12/01/2024 at 19:11 Approved by: David Lopez M.D. on 12/01/2024 at 19:14
[2024-12-02] VITALS (23 sets, daily range): BP systolic 90–116; BP diastolic 50–70; PULSE 61–85; TEMP 36.4–37; O2SAT 61–95
[2024-12-02 05:19] LABS: Basophils Absolute Auto 0.1 10^3/uL (0.0-0.1); Basophils Percent Auto 0.9 % (0.2-2.0); Eosinophils Absolute Auto 0.2 10^3/uL (0.0-0.7); Eosinophils Percent Auto 2.6 % (0.9-7.0); Hematocrit 46.4 % (42.0-54.0); Hemoglobin 14.8 g/dL (14.0-18.0); Immature Granulocytes Abs Auto 0.02 10^3/uL (0.00-0.03); Immature Granulocytes Pct Auto 0.2 % (0.0-0.5); Lymphocytes Absolute Auto 1.6 10^3/uL (1.2-3.8); Lymphocytes Percent Auto 18.6 % (20.5-60.0); Mean Corpuscular HGB Conc 31.9 g/dL (29.9-35.2); Mean Corpuscular Hemoglobin 31.2 pg (25.9-34.0); Mean Corpuscular Volume 97.7 fL (80.0-94.0); Monocytes Absolute Auto 0.9 10^3/uL (0.3-0.8); Monocytes Percent Auto 10.4 % (1.7-12.0); Neutrophils Absolute Auto 5.8 10^3/uL (1.4-6.5); Neutrophils Percent Auto 67.3 % (43.0-75.0); Platelet Count 311 10^3/uL (150-450); Red Blood Count 4.75 10^6/uL (4.70-6.10); Red Cell Distribution Width 13.1 % (11.0-15.0); White Blood Count 8.6 10^3/uL (4.0-11.0)
[2024-12-02 05:34] LABS: Alanine Aminotransferase 21 U/L (16-63); Albumin Level 3.2 g/dL (3.4-5.0); Alkaline Phosphatase 113 U/L (46-116); Anion Gap 4.7; Aspartate Amino Transferase 20 U/L (15-37); BUN Creatinine Ratio 24.2; Bilirubin Total 0.6 mg/dL (0.2-1.0); Calcium 8.6 mg/dL (8.5-10.1); Carbon Dioxide 44.8 mmol/L (21.0-32.0); Chloride 99 mmol/L (98-107); Estimated GFR (African America >60 (>=60 mL/min/1.73m^2); Estimated GFR (Non-African Ame >60 (>=60 mL/min/1.73m^2); Globulin 3.2 g/dL; Glucose 87 mg/dL (74-106); Potassium 3.5 mmol/L (3.5-5.1); Sodium 145 mmol/L (136-145); Total Protein 6.4 g/dL (6.4-8.2)
--- NOTE | 2024-12-02 06:52 | P.PN_ITS ---
Progress Note: Subjective Subjective Interval history: Still significant dyspnea but ambulating better Exam Constitutional Vital Signs, click to edit/add: Last Vital Signs Temp 98.1 F 12/02/24 05:49 Pulse 70 12/02/24 05:49 Resp 19 12/02/24 05:49 BP 102/66 12/02/24 05:49 Pulse Ox 91 L 12/02/24 05:49 O2 Del Method Nasal Cannula 12/02/24 05:49 O2 Flow Rate 4 12/02/24 05:49 Documenting provider has reviewed patient's vital signs: yes Common normals: apparent distress (Moderate respiratory distress secondary ) Eye General eye: abnormal appearance of eye(s) (Down to mild swelling consistent with fluid accumulation around the eyes) Chest Common normals: inspection of chest normal Respiratory Common normals: abnormal respiratory effort (Moderate respiratory distress) Auscultation: rales (Minimal rales in bases) Cardio Common normals: regular rate, regular rhythm and no murmurs GI Common normals: soft to palpation; negative for Normal to inspection, nondistended, normoactive bowel sounds present (Morbid obesity) Extremity Common normals: abnormal to inspection (3-4+ edema improving) Progress Note: Objective Labs Labs: Short CBC 12/02/24 Range/Units 05:07 WBC 8.6 (4.0-11.0) 10^3/uL Hgb 14.8 (14.0-18.0) g/dL Hct 46.4 (42.0-54.0) % Plt Count 311 (150-450) 10^3/uL BMP 12/02/24 05:07 Sodium 145 Potassium 3.5 Chloride 99 Carbon Dioxide 44.8 H BUN 29.0 H Creatinine 1.20 Glucose 87 Calcium 8.6 Liver Function 12/02/24 Range/Units 05:07 Total Bilirubin 0.6 (0.2-1.0) mg/dL AST 20 (15-37) U/L ALT 21 (16-63) U/L Alkaline Phosphatase 113 (46-116) U/L Albumin 3.2 L (3.4-5.0) g/dL Progress Note: A&P Assessment and Plan (1) Hypoxia: (2) Anasarca: (3) Pulmonary hypertension: (4) Acute exacerbation of COPD with asthma: (5) Congestive heart failure: Plan Admission findings: Respiratory distress, acute hypoxic respiratory distress with O2 sat of 82%, secondary to acute combined congestive heart failure,, at home he has been weaned able to be weaned off of his supplemental oxygen during the day and only wears it at bedtime. Acute combined congestive heart failure-on his last admission he diuresed a total of 42 L, with a net of 35 L, he is not quite in that better shape but definitely trending that direction with a 21 pound weight gain-check on echocardiogram, repeat Bumex drip again today., Minimal change with creatinine likely needs 1-2 more days Iron deficiency anemia-monitor daily Severe pulmonary hypertension-maintain the hydralazine, adding the Entresto Asthma-continue with home medications, not acute flareup Admission status: Patient with acute hypoxia and severe flareup of his acute combined congestive heart failure complicated by severe pulmonary hypertension, medically necessary treatment will span 2 midnights. Inpatient status. ?
[2024-12-02] MEDS: BUMETANIDE 10 MG in 0.9 % SODIUM CHLORIDE 160 ML IV (08:00)
--- NOTE | 2024-12-02 08:47 | CM.NOTE ---
Rounds made with Dr. Zavala, discussed plan of care with pt. No discharge today, pt will need to f/u with Cardiology at discharge. Possible discharge tomorrow. Pt continues to require 4L NC, pt does have home oxygen HS and will need to evaluate if needed continuos 4L NC at home.
[2024-12-02] MEDS: MELOXICAM 7.5 MG TABLET 15 MG PO (09:35)
[2024-12-02] MEDS: ISOSORBIDE MONONITRATE 60 MG TAB.ER.24H PO (09:35)
[2024-12-02] MEDS: SACUBITRIL/VALSARTAN 24 MG-26 MG TABLET 1 TAB PO ×2 (09:35→21:16)
[2024-12-02] MEDS: SPIRONOLACTONE 25 MG TABLET PO (09:36)
[2024-12-03] VITALS (13 sets, daily range): BP systolic 101–120; BP diastolic 64–70; PULSE 66–95; TEMP 36.6–36.7; O2SAT 90–92
[2024-12-03] MEDS: ACETAMINOPHEN 500 MG TABLET 1000 MG PO ×2 (05:23→14:47)
[2024-12-03 06:05] LABS: Basophils Absolute Auto 0.1 10^3/uL (0.0-0.1); Basophils Percent Auto 1.1 % (0.2-2.0); Eosinophils Absolute Auto 0.2 10^3/uL (0.0-0.7); Eosinophils Percent Auto 2.3 % (0.9-7.0); Hematocrit 46.9 % (42.0-54.0); Hemoglobin 15.1 g/dL (14.0-18.0); Immature Granulocytes Abs Auto 0.02 10^3/uL (0.00-0.03); Immature Granulocytes Pct Auto 0.2 % (0.0-0.5); Lymphocytes Absolute Auto 1.5 10^3/uL (1.2-3.8); Lymphocytes Percent Auto 17.5 % (20.5-60.0); Mean Corpuscular HGB Conc 32.2 g/dL (29.9-35.2); Mean Corpuscular Hemoglobin 30.8 pg (25.9-34.0); Mean Corpuscular Volume 95.5 fL (80.0-94.0); Mean Platelet Volume 10.5 fL (9.5-13.5); Monocytes Absolute Auto 0.9 10^3/uL (0.3-0.8); Monocytes Percent Auto 10.7 % (1.7-12.0); Neutrophils Absolute Auto 5.7 10^3/uL (1.4-6.5); Neutrophils Percent Auto 68.2 % (43.0-75.0); Platelet Count 326 10^3/uL (150-450); Red Blood Count 4.91 10^6/uL (4.70-6.10); Red Cell Distribution Width 13.2 % (11.0-15.0); White Blood Count 8.4 10^3/uL (4.0-11.0)
[2024-12-03 06:15] LABS: Alanine Aminotransferase 19 U/L (16-63); Albumin Level 3.4 g/dL (3.4-5.0); Alkaline Phosphatase 110 U/L (46-116); Anion Gap 3.2; Aspartate Amino Transferase 20 U/L (15-37); BUN Creatinine Ratio 25.5; Bilirubin Total 0.6 mg/dL (0.2-1.0); Calcium 8.8 mg/dL (8.5-10.1); Carbon Dioxide 46.1 mmol/L (21.0-32.0); Chloride 97 mmol/L (98-107); Estimated GFR (African America >60 (>=60 mL/min/1.73m^2); Estimated GFR (Non-African Ame >60 (>=60 mL/min/1.73m^2); Globulin 3.3 g/dL; Glucose 100 mg/dL (74-106); Potassium 3.3 mmol/L (3.5-5.1); Sodium 143 mmol/L (136-145); Total Protein 6.7 g/dL (6.4-8.2)
--- NOTE | 2024-12-03 06:57 | P.PN_ITS ---
Progress Note: Subjective Subjective Interval history: Still significant dyspnea but ambulating better Exam Constitutional Vital Signs, click to edit/add: Last Vital Signs Temp 98.1 F 12/03/24 05:36 Pulse 85 12/03/24 06:00 Resp 18 12/03/24 05:36 BP 120/70 12/03/24 05:36 Pulse Ox 90 L 12/03/24 05:36 O2 Del Method Nasal Cannula 12/03/24 05:36 O2 Flow Rate 4 12/03/24 05:36 Progress Note: Objective Labs Labs: Short CBC 12/03/24 Range/Units 05:18 WBC 8.4 (4.0-11.0) 10^3/uL Hgb 15.1 (14.0-18.0) g/dL Hct 46.9 (42.0-54.0) % Plt Count 326 (150-450) 10^3/uL BMP 12/03/24 05:18 Sodium 143 Potassium 3.3 L Chloride 97 L Carbon Dioxide 46.1 H BUN 27.0 H Creatinine 1.06 Glucose 100 Calcium 8.8 Liver Function 12/03/24 Range/Units 05:18 Total Bilirubin 0.6 (0.2-1.0) mg/dL AST 20 (15-37) U/L ALT 19 (16-63) U/L Alkaline Phosphatase 110 (46-116) U/L Albumin 3.4 (3.4-5.0) g/dL Progress Note: A&P Assessment and Plan (1) Hypoxia: (2) Anasarca: (3) Pulmonary hypertension: (4) Acute exacerbation of COPD with asthma: (5) Congestive heart failure: Plan Admission findings: Respiratory distress, acute hypoxic respiratory distress with O2 sat of 82%, secondary to acute combined congestive heart failure,, at home he has been weaned able to be weaned off of his supplemental oxygen during the day and only wears it at bedtime. Acute combined congestive heart failure-on his last admission he diuresed a total of 42 L, with a net of 35 L, he is not quite in that better shape but definitely trending that direction with a 21 pound weight gain-check on echocardiogram, repeat Bumex drip again today., Minimal change with creatinine likely needs 1-2 more days Iron deficiency anemia-monitor daily Severe pulmonary hypertension-maintain the hydralazine, adding the Entresto Asthma-continue with home medications, not acute flareup Admission status: Patient with acute hypoxia and severe flareup of his acute combined congestive heart failure complicated by severe pulmonary hypertension, medically necessary treatment will span 2 midnights. Inpatient status. ?
[2024-12-03] MEDS: METOPROLOL TARTRATE 50 MG TABLET 75 MG PO (08:39)
[2024-12-03] MEDS: ISOSORBIDE MONONITRATE 60 MG TAB.ER.24H PO (08:39)
[2024-12-03] MEDS: SPIRONOLACTONE 25 MG TABLET PO (08:40)
[2024-12-03] MEDS: SACUBITRIL/VALSARTAN 24 MG-26 MG TABLET 1 TAB PO (08:40)
[2024-12-03] MEDS: MELOXICAM 7.5 MG TABLET 15 MG PO (08:40)
[2024-12-03] MEDS: HYDRALAZINE HCL 50 MG TABLET 100 MG PO (08:41)
--- NOTE | 2024-12-03 09:38 | CM.NOTE ---
Rounds made with Dr. Zavala, pt will discharge to home. Pt has order for home oxygen 4L NC continuos but pt only wears at night. Explained to pt importance of wearing home oxygen continuos at discharge. Pt verbalizes understanding. Pt will need to f/u with PCP and cardilogist.
--- NOTE | 2024-12-03 12:16 | CM.NOTE ---
Discussed with pt about chronic diagnosis CHF and checking daily weights. Pt verbalizes understanding and also instructed to call PCP if weight of more than 5 pounds in one week or 2-3 pounds in a day. Pt verbalizes understanding and has available scale to check weights. Pt also instructed importance of wearing oxygen continuos at home until otherwise discontinued by PCP or density control puncher. Spoke with pt also importance of home BIPAP and compliance. Discussed also cardiac rehab and services they offer. Pt will f/u with density control puncher appointment scheduled. Talked with pt about chronic disease management and importance of f/u visits and preventative medicine. Importance of taking medications as prescribed and not missing doses , pt voices he does think he had missed a couple doses of his diuretic at home.
[2024-12-03] MEDS: BUMETANIDE 1 MG/4 ML VIAL 2 MG IVP (12:28)
--- NOTE | 2024-12-03 19:32 | P.DS_ITS ---
DS: Providers Provider Date of admission: 11/30/24 13:20 Primary care physician: Mike Zavala MD Consults: 11/30/24 14:00 Consult to Pharmacy Routine Consulting Provider: Reason for consultation: Please [place] me when Med Rec is Updated Has provider been notified: No Occupational Therapy Eval and Treat Routine Reason for consultation: Only if needed for Rehab Has provider been notified: No Physical Therapy Eval and Treat Routine Reason for consultation: Eval and Treat Has provider been notified: No DS: Diagnosis Discharge Diagnosis (1) Hypoxia: (2) Anasarca: (3) Pulmonary hypertension: (4) Acute exacerbation of COPD with asthma: (5) Congestive heart failure: Plan Admission findings: Respiratory distress, acute hypoxic respiratory distress with O2 sat of 82%, secondary to acute combined congestive heart failure,, at home he has been weaned able to be weaned off of his supplemental oxygen during the day and only wears it at bedtime. Acute combined congestive heart failure-on his last admission he diuresed a total of 42 L, with a net of 35 L, he is not quite in that better shape but definitely trending that direction with a 21 pound weight gain-check on echocardiogram, repeat Bumex drip again today., Minimal change with creatinine likely needs 1-2 more days Iron deficiency anemia-monitor daily Severe pulmonary hypertension-maintain the hydralazine, adding the Entresto Asthma-continue with home medications, not acute flareup Admission status: Patient with acute hypoxia and severe flareup of his acute combined congestive heart failure complicated by severe pulmonary hypertension, medically necessary treatment will span 2 midnights. Inpatient status. ? DS: Summary Hospital Course Hospital Course: Patient was seen and evaluated in the office with increasing weight gain, 20 pounds prior to admission. This is despite taking his medications. With failed outpatient treatment of fluid overload and acute combined congestive heart failure he was admitted, placed on Bumex drip over the 3 successful days, excellent diuresis, probably still has some more fluid, patient will prefer to try oral medications him and see if he can maintain the loss at home. He was started on Entresto and Aldactone, monitor electrolytes closely, he will be discharged home in improving condition. Medications see list. Follow-up with me in the office in 1 to 4 days At home he is able to wean down his supplemental oxygen to room air during the day and supplemental oxygen and at bedtime, currently requiring 3 to 4 L of supplemental oxygen continuous Status at Discharge Overall status at discharge: patient is not back to baseline Time Spent with Patient Time attestation: Total time spent providing and/or coordinating discharge services: Time spent: greater than 30 minutes Exam Constitutional Vital Signs, click to edit/add: Last Vital Signs Temp 97.9 F 12/03/24 07:30 Pulse 75 12/03/24 13:57 Resp 18 12/03/24 10:35 BP 101/66 12/03/24 10:35 Pulse Ox 92 L 12/03/24 12:00 O2 Del Method Nasal Cannula 12/03/24 12:00 O2 Flow Rate 4 12/03/24 12:00 Documenting provider has reviewed patient's vital signs: yes Common normals: apparent distress (Moderate respiratory distress secondary ) Eye General eye: abnormal appearance of eye(s) (Down to mild swelling consistent with fluid accumulation around the eyes) Chest Common normals: inspection of chest normal Respiratory Common normals: abnormal respiratory effort (Moderate respiratory distress) Auscultation: rales (Minimal rales in bases) Cardio Common normals: regular rate, regular rhythm and no murmurs GI Common normals: soft to palpation; negative for Normal to inspection, nondistended, normoactive bowel sounds present (Morbid obesity) Extremity Common normals: abnormal to inspection (2-3+ edema improving) DS: Data Data Completed and Pending Labs on day of discharge: Labs from last 24 hours 12/03/24 05:18 WBC 8.4 RBC 4.91 Hgb 15.1 Hct 46.9 MCV 95.5 H MCH 30.8 MCHC 32.2 RDW 13.2 Plt Count 326 MPV 10.5 Neut % (Auto) 68.2 Lymph % (Auto) 17.5 L [place] % (Auto) 10.7 Eos % (Auto) 2.3 Baso % (Auto) 1.1 Neut # (Auto) 5.7 Lymph # (Auto) 1.5 [place] # (Auto) 0.9 H Eos # (Auto) 0.2 Baso # (Auto) 0.1 Abs Immat Gran (auto) 0.02 Imm/Tot Granulo (auto) 0.2 Sodium 143 Potassium 3.3 L Chloride 97 L Carbon Dioxide 46.1 H Anion Gap 3.2 BUN 27.0 H Creatinine 1.06 Est GFR ( Amer) >60 Est GFR (Non-Af Amer) >60 BUN/Creatinine Ratio 25.5 Glucose 100 Calcium 8.8 Total Bilirubin 0.6 AST 20 ALT 19 Alkaline Phosphatase 110 NT-Pro-B Natriuret Pep 431.0 Total Protein 6.7 Albumin 3.4 Globulin 3.3 Albumin/Globulin Ratio 1.0 Preliminary micro results at discharge 11/30/24 12:45 Blood Culture Result 2 - Preliminary Blood - Right Antecubital NO GROWTH AT 36-48 HOURS. FINAL TO FOLLOW. 11/30/24 12:32 Blood Culture Result 1 - Preliminary Blood - Left Antecubital NO GROWTH AT 36-48 HOURS. FINAL TO FOLLOW. Discharge Plan Discharge Disposition: Home, Self-Care Condition: Fair Discharge Medications: New spironolactone 25 mg Tablet 25 mg PO QD Qty: 30 11RF sacubitril-valsartan [Entresto] 24-26 mg Tablet 1 tab PO BID Qty: 60 11RF Continued albuterol sulfate [Ventolin HFA] 90 mcg/actuation HFA aerosol inhaler 2 inh inhalation Q6H MDD 2 puffs Qty: 8.5 11RF Rx Instructions: please provide spacer as well metoprolol tartrate 75 mg tablet 75 mg PO BID Qty: 60 11RF hydralazine 100 mg tablet 100 mg PO BID Qty: 60 11RF bumetanide 1 mg tablet 1 mg PO DAILY Qty: 30 11RF isosorbide mononitrate 60 mg tablet extended release 24 hr 60 mg PO DAILY Qty: 30 11RF meloxicam 15 mg tablet 15 mg PO DAILY Activity: resume usual activities as tolerated Diet: low salt diet Print Language: Mohawk Patient Instructions: Spironolactone (By mouth), Sacubitril/Valsartan (By mouth) (Entresto, Entresto Fany), Heart Failure (DC), Edema (DC) Forms: Portal Instructions Follow Up Appointments: December 10 @ 11:15am with Dr. Zavala [phone] Mon. December 14 @ 3pm with [facility] at [facility] [phone] Discharge Date/Time: 12/03/24 16:55
--- NOTE | 2024-12-04 15:26 | CM.DCFOLLOWU ---
1st attempt 12/04/24. No answer
--- NOTE | 2024-12-07 15:40 | CM.DCFOLLOWU ---
2nd attempt 12/07/24, no answer
--- NOTE | 2024-12-10 13:28 | CM.DCFOLLOWU ---
12/10- 3rd attempt. No answer
== END 2024-12-03 16:55 | disposition home or self-care (01) | DRG 291 ==
LOC: ER 13:02 → MS 13:29
PROVIDERS: Admitting Provider Family Medicine; Emergency Provider Emergency Medicine; PCP Family Medicine; Visit Provider Family Medicine
DX: I50.43 Acute on chronic combined systolic (congestive) and diastolic (congestive) heart failure (principal); J96.01 Acute respiratory failure with hypoxia; I27.20 Pulmonary hypertension, unspecified; G47.30 Sleep apnea, unspecified; D50.9 Iron deficiency anemia, unspecified; J44.89 Other specified chronic obstructive pulmonary disease; Z87.891 Personal history of nicotine dependence; Z79.899 Other long term (current) drug therapy; Z79.1 Long term (current) use of non-steroidal anti-inflammatories (NSAID)
CPT/HCPCS: 36415; 71045; 80053; 82800; 83605; 83880; 84100; 84443; 84481; 84484; 85025; 87040; 93005; 93308; 94667; 94668; 94761; 99285

== ENCOUNTER 2025-01-26 16:00 | Inpatient (IN) | payer OTHER, SELFPAY ==
[2025-01-26] VITALS (20 sets, daily range): BP systolic 130–196; BP diastolic 78–110; PULSE 74–88; TEMP 36.8; O2SAT 83–96; BMI 38.4; BMI 42.2
--- NOTE | 2025-01-26 16:28 | ECG_ITS ---
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 Measurements Intervals [place] Rate: 75 P: 54 UT: 152 QRS: -18 QRSD: 116 T: 31 QT: 390 QTc: 419 Interpretive Statements 1100 Sinus rhythm 2440 Incomplete right bundle branch block 9130 borderline ECG Compared to ECG 11/30/2024 12:26:06 Incomplete right bundle-branch block now present QRS duration has decreased Electronically Signed On 01-26-2025 18:48:29 EDT by RENETTA RONDON M.D.
[2025-01-26 16:36] LABS: Basophils Absolute Auto 0.1 10^3/uL (0.0-0.1); Basophils Percent Auto 1.1 % (0.2-2.0); Eosinophils Absolute Auto 0.2 10^3/uL (0.0-0.7); Eosinophils Percent Auto 2.3 % (0.9-7.0); Hematocrit 42.1 % (42.0-54.0); Hemoglobin 13.3 g/dL (14.0-18.0); Immature Granulocytes Abs Auto 0.02 10^3/uL (0.00-0.03); Immature Granulocytes Pct Auto 0.3 % (0.0-0.5); Lymphocytes Percent Auto 12.2 % (20.5-60.0); Mean Corpuscular HGB Conc 31.6 g/dL (29.9-35.2); Mean Corpuscular Hemoglobin 30.3 pg (25.9-34.0); Mean Corpuscular Volume 95.9 fL (80.0-94.0); Mean Platelet Volume 10.4 fL (9.5-13.5); Monocytes Absolute Auto 0.8 10^3/uL (0.3-0.8); Monocytes Percent Auto 10.3 % (1.7-12.0); Neutrophils Absolute Auto 5.8 10^3/uL (1.4-6.5); Neutrophils Percent Auto 73.8 % (43.0-75.0); Platelet Count 341 10^3/uL (150-450); Red Blood Count 4.39 10^6/uL (4.70-6.10); Red Cell Distribution Width 14.4 % (11.0-15.0); White Blood Count 7.9 10^3/uL (4.0-11.0)
[2025-01-26] MEDS: NITROGLYCERIN 0.4 MG BOTTLE SL (16:45)
[2025-01-26 16:55] LABS: Alanine Aminotransferase 32 U/L (16-63); Albumin Globulin Ratio 0.9; Albumin Level 3.4 g/dL (3.4-5.0); Alkaline Phosphatase 133 U/L (46-116); Anion Gap 8.7; Aspartate Amino Transferase 31 U/L (15-37); BUN Creatinine Ratio 18.6; Bilirubin Total 1.5 mg/dL (0.2-1.0); Calcium 9.1 mg/dL (8.5-10.1); Carbon Dioxide 34.3 mmol/L (21.0-32.0); Chloride 100 mmol/L (98-107); Estimated GFR (African America >60 (>=60 mL/min/1.73m^2); Estimated GFR (Non-African Ame >60 (>=60 mL/min/1.73m^2); Globulin 3.6 g/dL; Glucose 80 mg/dL (74-106); Sodium 139 mmol/L (136-145)
[2025-01-26 16:57] LABS: Troponin I High Sensitivity 44.4 pg/mL (4.0-76.1)
--- NOTE | 2025-01-26 17:16 | ED_ITS ---
HPI - SOB/Dyspnea General Chief Complaint: Shortness of Breath/Dyspnea Stated Complaint: SOB Time Seen by Provider: 01/26/25 16:27 Source: patient Mode of arrival: Wheelchair History of Present Illness HPI Narrative: The patient is a 49-year-old male who have a history of chronic bilateral leg edema and congestive heart failure, is coming to the ER with increase in the swelling in his leg as well as shortness of breath, the patient mentioned that sometimes he is reading chest pain with his symptoms for the last 24 hours as well The patient denies any nausea vomiting or any other concerns, he denies any chest pain at the moment he mentioned that this pain comes mostly with exertion He mentioned also that shortness of breath is getting worse over the last few weeks Related Data Previous Rx's ?Medication ?Instructions ?Recorded bumetanide 1 mg tablet 1 mg PO DAILY #30 tabs 11/01 hydralazine 100 mg tablet 100 mg PO BID #60 tabs 11/01 isosorbide mononitrate 60 mg 60 mg PO DAILY #30 tabs 0 11/01/24 tablet,extended release 24 hr metoprolol tartrate 75 mg tablet 75 mg PO BID #60 tabs 11/01/24 sacubitril 24 mg-valsartan 26 mg 1 tab PO BID #60 tabs 12/03/24 tablet (Entresto) spironolactone 25 mg tablet 25 mg PO QD #30 tabs 12/03 Allergies Allergy/AdvReac Type Severity Reaction Status Date / Time No Known Drug Allergies Allergy Verified 01/26/25 16:16 Review of Systems ROS Status of ROS 10 or more systems reviewed and unremark able except as noted in history and below [facility] Medical History (Updated 01/26/25 @ 17:20 by Arlene Ruiz MD) Hypoxia ?R09.02 - Hypoxemia (ICD-10) Anasarca ?R60.1 - Generalized edema (ICD-10) Pulmonary hypertension ?I27.20 - Pulmonary hypertension, unspecified (ICD-10) Pre-ulcerative calluses ?L84 - Corns and callosities (ICD-10) Acute exacerbation of COPD with asthma ?J44.1 - Chronic obstructive pulmonary disease with (acute) exacerbation (ICD-10) Hypertensive urgency ?I16.0 - Hypertensive urgency (ICD-10) Congestive heart failure ?I50.9 - Heart failure, unspecified (ICD-10) Oxygen dependent ?Z99.81 - Dependence on supplemental oxygen (ICD-10) Sleep apnea ?G47.30 - Sleep apnea, unspecified (ICD-10) Iron deficiency anemia ?D50.9 - Iron deficiency anemia, unspecified (ICD-10) Surgical History (Updated 11/30/24 @ 13:38 by Trang Agudelo) History of medial meniscus repair of left knee ?Z98.890 - Other specified postprocedural states (ICD-10) Family History (Updated 11/30/24 @ 13:39 by Trang Agudelo) Grandfather Family history of CHF (congestive heart failure) Family history of hypertension Family history of myocardial infarction Grandmother Family history of cancer Family history of hypertension Mother Family history of hypertension Social History (Updated 11/30/24 @ 13:40 by Trang Agudelo) Within the past year, how often did you have a drink containing alcohol: monthly or less Within the past year, how often did you have six or more drinks on one occasion: never Smoking status: Former smoker Non-prescribed substance use: denies use 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 General: Well-appearing and in no apparent distress. Skin: Warm, dry, no pallor noted. No rash. Head: Normocephalic, atraumatic. Neck: Supple, non-tender. Eye: Pupils are equal, round and EOMI. No scleral icterus. Ears, Nose, Mouth, and Throat: TM are clear, no nasal mucosal hypertrophy. Oral mucosa is moist, no posterior oropharynx erythema, uvula is mid-line Cardiovascular: Regular Rate and Rhythm without murmur, gallop or rub. Respiratory: Distant breathing sound bilaterally Back: No midline thoracic or lumbar vertebral tenderness. No CVA tenderness Musculoskeletal: Patient have extensive bilateral leg edema until the level of the upper thigh that is at least 1+ pitting GI: Abdomen is soft, non-distended. Normal bowel sounds. No masses appreciated. No tenderness to palpation. No rebound, guarding, or rigidity noted. Neurological: A&O x4. No cranial nerve dysfunction observed. No truncal ataxia. Moves all extremities. Sensation intact. Psychiatric: Cooperative and interactive. Normal mood and affect. Constitutional Vital Signs, click to edit/add: Last Vital Signs Temp 98.3 F 01/26/25 16:18 Pulse 88 01/26/25 16:18 Resp 22 H 01/26/25 16:18 BP 190/110 H 01/26/25 16:18 Pulse Ox 96 01/26/25 16:32 O2 Del Method Nasal Cannula 01/26/25 16:32 O2 Flow Rate 2 01/26/25 16:32 Course Vital Signs Vital signs: Vital Signs Temperature 98.3 F 01/26/25 16:18 Pulse Rate 88 01/26/25 16:18 Respiratory Rate 22 H 01/26/25 16:18 Blood Pressure 190/110 H 01/26/25 16:18 Pulse Oximetry 83 L 01/26/25 16:18 Oxygen Delivery Method Room Air 01/26/25 16:18 Temperature 98.3 F 01/26/25 16:18 Pulse Rate 88 01/26/25 16:18 Respiratory Rate 22 H 01/26/25 16:18 Blood Pressure 190/110 H 01/26/25 16:18 Pulse Oximetry 96 01/26/25 16:32 Oxygen Delivery Method Nasal Cannula 01/26/25 16:32 Oxygen Delivery Flow Rate 2 01/26/25 16:32 MDM - SOB/Dyspnea MDM Narrative Medical decision making narrative: The patient chest x-ray shows mild vascular congestion which is expected in the patient EKG in the ER showing sinus rhythm with a heart rate of [address] elevation or depression The patient does not have any pain at the moment I did notice that his blood pressure was elevated upon arrival he was provided with nitroglycerin after which his blood pressure right now is 151/103 Patient was started on Lasix but it was noted that he had Bumex drip started before The patient otherwise chemistry showed no acute pathology and the BNP was elevated which correlates with the accurate diagnosis of CHF The patient case discussed with Dr. Asher and pt will be admitted under Dr Zavala Lab Data Labs: Lab Results 01/26/25 Range/Units 16:25 WBC 7.9 (4.0-11.0) 10^3/uL RBC 4.39 L (4.70-6.10) 10^6/uL Hgb 13.3 L (14.0-18.0) g/dL Hct 42.1 (42.0-54.0) % MCV 95.9 H (80.0-94.0) fL MCH 30.3 (25.9-34.0) pg MCHC 31.6 (29.9-35.2) g/dL RDW 14.4 (11.0-15.0) % Plt Count 341 (150-450) 10^3/uL MPV 10.4 (9.5-13.5) fL Neut % (Auto) 73.8 (43.0-75.0) % Lymph % (Auto) 12.2 L (20.5-60.0) % [place] % (Auto) 10.3 (1.7-12.0) % Eos % (Auto) 2.3 (0.9-7.0) % Baso % (Auto) 1.1 (0.2-2.0) % Neut # (Auto) 5.8 (1.4-6.5) 10^3/uL Lymph # (Auto) 1.0 L (1.2-3.8) 10^3/uL [place] # (Auto) 0.8 (0.3-0.8) 10^3/uL Eos # (Auto) 0.2 (0.0-0.7) 10^3/uL Baso # (Auto) 0.1 (0.0-0.1) 10^3/uL Abs Immat Gran (auto) 0.02 (0.00-0.03) 10^3/uL Imm/Tot Granulo (auto) 0.3 (0.0-0.5) % Sodium 139 (136-145) mmol/L Potassium 4.0 (3.5-5.1) mmol/L Chloride 100 (98-107) mmol/L Carbon Dioxide 34.3 H (21.0-32.0) mmol/L Anion Gap 8.7 BUN 16.0 (7.0-18.0) mg/dL Creatinine 0.86 (0.70-1.30) mg/dL Est GFR ( Amer) >60 (>=60 mL/min/1.73m^2) Est GFR (Non-Af Amer) >60 (>=60 mL/min/1.73m^2) BUN/Creatinine Ratio 18.6 Glucose 80 (74-106) mg/dL Calcium 9.1 (8.5-10.1) mg/dL Total Bilirubin 1.5 H (0.2-1.0) mg/dL AST 31 (15-37) U/L ALT 32 (16-63) U/L Alkaline Phosphatase 133 H (46-116) U/L Troponin I High Sens 44.4 (4.0-76.1) pg/mL NT-Pro-B Natriuret Pep 4698.0 H* (<=900.0) pg/mL Total Protein 7.0 (6.4-8.2) g/dL Albumin 3.4 (3.4-5.0) g/dL Globulin 3.6 g/dL Albumin/Globulin Ratio 0.9 Discharge Plan Discharge Chief Complaint: Shortness of Breath/Dyspnea Clinical Impression: Acute CHF (congestive heart failure), Leg edema, Chest pain Patient Disposition: Admitted As Inpatient Time of Disposition Decision: 17:20
[2025-01-26] MEDS: FUROSEMIDE 40 MG/4 ML VIAL IVP (18:16)
[2025-01-26] MEDS: HYDRALAZINE HCL 50 MG TABLET 100 MG PO (20:20)
[2025-01-26] MEDS: METOPROLOL TARTRATE 25 MG TABLET 75 MG PO (20:21)
[2025-01-26] MEDS: HYDRALAZINE HCL 20 MG/ML VIAL 10 MG IVP (20:22)
[2025-01-26] MEDS: SACUBITRIL/VALSARTAN 24 MG-26 MG TABLET 1 TAB PO (20:22)
[2025-01-27] VITALS (19 sets, daily range): BP systolic 80–132; BP diastolic 50–83; PULSE 54–73; TEMP 36.3–36.7; O2SAT 86–95
[2025-01-27 05:44] LABS: Basophils Absolute Auto 0.1 10^3/uL (0.0-0.1); Basophils Percent Auto 1.1 % (0.2-2.0); Eosinophils Absolute Auto 0.2 10^3/uL (0.0-0.7); Eosinophils Percent Auto 2.6 % (0.9-7.0); Hematocrit 42.5 % (42.0-54.0); Hemoglobin 13.3 g/dL (14.0-18.0); Immature Granulocytes Abs Auto 0.02 10^3/uL (0.00-0.03); Immature Granulocytes Pct Auto 0.3 % (0.0-0.5); Lymphocytes Percent Auto 12.7 % (20.5-60.0); Mean Corpuscular HGB Conc 31.3 g/dL (29.9-35.2); Mean Corpuscular Volume 95.9 fL (80.0-94.0); Mean Platelet Volume 10.4 fL (9.5-13.5); Monocytes Absolute Auto 0.8 10^3/uL (0.3-0.8); Monocytes Percent Auto 10.2 % (1.7-12.0); Neutrophils Absolute Auto 5.6 10^3/uL (1.4-6.5); Neutrophils Percent Auto 73.1 % (43.0-75.0); Platelet Count 364 10^3/uL (150-450); Red Blood Count 4.43 10^6/uL (4.70-6.10); Red Cell Distribution Width 14.3 % (11.0-15.0); White Blood Count 7.6 10^3/uL (4.0-11.0)
[2025-01-27 06:06] LABS: Alanine Aminotransferase 28 U/L (16-63); Albumin Globulin Ratio 0.9; Albumin Level 3.2 g/dL (3.4-5.0); Alkaline Phosphatase 126 U/L (46-116); Aspartate Amino Transferase 29 U/L (15-37); BUN Creatinine Ratio 19.2; Calcium 8.9 mg/dL (8.5-10.1); Carbon Dioxide 34.9 mmol/L (21.0-32.0); Chloride 100 mmol/L (98-107); Estimated GFR (African America >60 (>=60 mL/min/1.73m^2); Estimated GFR (Non-African Ame >60 (>=60 mL/min/1.73m^2); Globulin 3.5 g/dL; Glucose 146 mg/dL (74-106); Potassium 3.9 mmol/L (3.5-5.1); Sodium 140 mmol/L (136-145); Total Protein 6.7 g/dL (6.4-8.2)
--- NOTE | 2025-01-27 08:17 | P.HP_ITS ---
HPI H&P: HPI History of Present Illness Chief complaint: SOB, CHF EXACERBATION, FLUID OVERLOAD Narrative: Patient presented to the emergency with a about a weeks worth of increasing shortness of breath, his weight is up 15 pounds from his baseline weight. He normally does not wear supplemental oxygen during the day except on occasion now is requiring it [id number], patient presented emergency room found to have a acute hypoxia and acute combined congestive heart failure When I saw patient up in the medical surgical floor, resting comfortably in bed, some mild conversational dyspnea but not nearly as bad as his first admission for this, on the first admission he diuresed 37 L of fluid, patient states the symptoms been progressive over the last week Opioid HPI Opioid Management Most Recent Pain and Opioid Data: Last Pain Scale 7 12/03/24, 16:00 Last Pain Intensity 3 10/27/24, 09:00 Last Pain Assessment 01/26/25, 20:00 Last ORT Total Score 3 01/26/25, 19:34 Last ORT Risk Category Low Risk 01/26/25, 19:34 Review of Systems ROS Status of ROS 10 or more systems reviewed and unremark able except as noted in history and below [facility] Medical History (Updated 01/26/25 @ 17:20 by Arlene Ruiz MD) Hypoxia ?R09.02 - Hypoxemia (ICD-10) Anasarca ?R60.1 - Generalized edema (ICD-10) Pulmonary hypertension ?I27.20 - Pulmonary hypertension, unspecified (ICD-10) Pre-ulcerative calluses ?L84 - Corns and callosities (ICD-10) Acute exacerbation of COPD with asthma ?J44.1 - Chronic obstructive pulmonary disease with (acute) exacerbation (ICD-10) Hypertensive urgency ?I16.0 - Hypertensive urgency (ICD-10) Congestive heart failure ?I50.9 - Heart failure, unspecified (ICD-10) Oxygen dependent ?Z99.81 - Dependence on supplemental oxygen (ICD-10) Sleep apnea ?G47.30 - Sleep apnea, unspecified (ICD-10) Iron deficiency anemia ?D50.9 - Iron deficiency anemia, unspecified (ICD-10) Surgical History (Updated 11/30/24 @ 13:38 by Trang Agudelo) History of medial meniscus repair of left knee ?Z98.890 - Other specified postprocedural states (ICD-10) Family History (Updated 11/30/24 @ 13:39 by Trang Agudelo) Grandfather Family history of CHF (congestive heart failure) Family history of hypertension Family history of myocardial infarction Grandmother Family history of cancer Family history of hypertension Mother Family history of hypertension Social History (Updated 01/26/25 @ 18:49 by Trang Agudelo) Within the past year, how often did you have a drink containing alcohol: monthly or less Within the past year, how often did you have six or more drinks on one occasion: never Smoking status: Former smoker Non-prescribed substance use: denies use 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 Highest level of school completed/degree received: high school graduate Little interest or pleasure in doing things: nearly every day Feeling down, depressed, or hopeless: nearly every day Feel stressed/tense/nervous/anxious/difficulty sleeping: only a little Gender Identity: male Meds Home Medications and Allergies Home Medications ?Medication ?Instructions ?Recorded ?Confirmed ?Type bumetanide 1 mg tablet 1 mg PO DAILY #30 tabs 11/0101/26/25 Rx hydralazine 100 mg tablet 100 mg PO BID #60 tabs 11/0101/26/25 Rx isosorbide mononitrate 60 mg 60 mg PO DAILY #30 tabs 0 11/01/24 01/26/25 Rx tablet,extended release 24 hr metoprolol tartrate 75 mg tablet 75 mg PO BID #60 tabs 11/01/24 01/26/25 Rx sacubitril 24 mg-valsartan 26 mg 1 tab PO BID #60 tabs 12/03/24 01/26/25 Rx tablet (Entresto) spironolactone 25 mg tablet 25 mg PO QD #30 tabs 12/0301/26/25 Rx Allergies Allergy/AdvReac Type Severity Reaction Status Date / Time No Known Drug Allergies Allergy Verified 01/26/25 16:16 Exam Constitutional Vital Signs, click to edit/add: Last Vital Signs Temp 98.0 F 01/27/25 07:27 Pulse 69 01/27/25 08:00 Resp 18 01/27/25 07:27 BP 112/68 01/27/25 07:27 Pulse Ox 86 L 01/27/25 07:27 O2 Del Method Nasal Cannula 01/27/25 07:27 O2 Flow Rate 3 01/27/25 07:27 Documenting provider has reviewed patient's vital signs: yes Common normals: apparent distress (Mild conversational dyspnea) HENMT Other: Some swelling under her eyes but not like his previous Respiratory Common normals: no retractions; abnormal respiratory effort (Mild conversational dyspnea) Auscultation: rales Cardio Common normals: regular rate, regular rhythm and no murmurs Extremity Common normals: abnormal to inspection (3+ edema) Results Labs Labs: Short CBC 01/26/25 01/27/25 Range/Units 16:25 05:25 WBC 7.9 7.6 (4.0-11.0) 10^3/uL Hgb 13.3 L 13.3 L (14.0-18.0) g/dL Hct 42.1 42.5 (42.0-54.0) % Plt Count 341 364 (150-450) 10^3/uL BMP 01/26/25 01/27/25 16:25 05:25 Sodium 139 140 Potassium 4.0 3.9 Chloride 100 100 Carbon Dioxide 34.3 H 34.9 H BUN 16.0 19.0 H Creatinine 0.86 0.99 Glucose 80 146 H Calcium 9.1 8.9 Liver Function 01/26/25 01/27/25 Range/Units 16:25 05:25 Total Bilirubin 1.5 H 1.0 (0.2-1.0) mg/dL AST 31 29 (15-37) U/L ALT 32 28 (16-63) U/L Alkaline Phosphatase 133 H 126 H (46-116) U/L Albumin 3.4 3.2 L (3.4-5.0) g/dL Assessment and Plan Assessment and Plan (1) Chest pain: (2) Leg edema: (3) Acute CHF (congestive heart failure): (4) Acute combined systolic (congestive) and diastolic (congestive) heart failure: (5) Hypoxia: (6) Pulmonary hypertension: (7) Hypertensive urgency: (8) Sleep apnea: Plan Admission findings: Uncontrolled hypertension leading to hypertensive urgency resulting in acute combined congestive heart failure with weight gain of 15 pounds and acute hypoxic with O2 sat of 84% Acute hypoxia secondary to hypertensive urgency resulting in acute combined congestive heart failure-blood pressure better this morning, did not diurese significantly overnight, will start patient on Bumex drip today, initial admission for this in August 2024 he diuresed 35 L Hypertensive urgency-increase Entresto Admission status: Patient with severe episode of hypertensive urgency resulting in acute combined congestive heart failure with weight gain of 15 pounds, me dically necessary treatment will span 2 midnights. Inpatient status
[2025-01-27 08:18] LABS: Troponin I High Sensitivity 28.4 pg/mL (4.0-76.1)
[2025-01-27] MEDS: ACETAMINOPHEN 500 MG TABLET 1000 MG PO (09:39)
[2025-01-27] MEDS: SACUBITRIL/VALSARTAN 24 MG-26 MG TABLET 2 TAB PO ×2 (09:40→22:47)
[2025-01-27] MEDS: SPIRONOLACTONE 25 MG TABLET PO (09:40)
[2025-01-27] MEDS: METOPROLOL TARTRATE 25 MG TABLET 75 MG PO ×2 (09:40→22:47)
[2025-01-27] MEDS: BUMETANIDE 10 MG in 0.9 % SODIUM CHLORIDE 160 ML 20 MG IV (10:58)
--- NOTE | 2025-01-27 15:09 | SWNOTE1 ---
SW called and spoke to Melinda at [facility] and pt does have script for 4 liters of home oxygen continuous and has Bipap as well.
[2025-01-28] VITALS (24 sets, daily range): BP systolic 94–132; BP diastolic 54–83; PULSE 57–84; RESP 12–16; TEMP 35.9–37.1; O2SAT 86–97
[2025-01-28] MEDS: ACETAMINOPHEN 500 MG TABLET 1000 MG PO ×2 (02:33→19:48)
[2025-01-28 05:15] LABS: Basophils Absolute Auto 0.1 10^3/uL (0.0-0.1); Basophils Percent Auto 0.6 % (0.2-2.0); Eosinophils Absolute Auto 0.3 10^3/uL (0.0-0.7); Eosinophils Percent Auto 2.8 % (0.9-7.0); Hemoglobin 13.7 g/dL (14.0-18.0); Immature Granulocytes Abs Auto 0.03 10^3/uL (0.00-0.03); Immature Granulocytes Pct Auto 0.3 % (0.0-0.5); Lymphocytes Absolute Auto 1.1 10^3/uL (1.2-3.8); Lymphocytes Percent Auto 12.3 % (20.5-60.0); Mean Corpuscular HGB Conc 31.9 g/dL (29.9-35.2); Mean Corpuscular Hemoglobin 30.6 pg (25.9-34.0); Mean Platelet Volume 10.1 fL (9.5-13.5); Monocytes Absolute Auto 1.1 10^3/uL (0.3-0.8); Monocytes Percent Auto 12.1 % (1.7-12.0); Neutrophils Absolute Auto 6.5 10^3/uL (1.4-6.5); Neutrophils Percent Auto 71.9 % (43.0-75.0); Platelet Count 384 10^3/uL (150-450); Red Blood Count 4.48 10^6/uL (4.70-6.10)
[2025-01-28 05:42] LABS: Alanine Aminotransferase 26 U/L (16-63); Albumin Globulin Ratio 0.9; Alkaline Phosphatase 115 U/L (46-116); Anion Gap 5.5; Aspartate Amino Transferase 19 U/L (15-37); Bilirubin Total 0.8 mg/dL (0.2-1.0); Calcium 8.7 mg/dL (8.5-10.1); Carbon Dioxide 40.5 mmol/L (21.0-32.0); Chloride 99 mmol/L (98-107); Estimated GFR (African America >60 (>=60 mL/min/1.73m^2); Estimated GFR (Non-African Ame >60 (>=60 mL/min/1.73m^2); Globulin 3.4 g/dL; Glucose 100 mg/dL (74-106); Sodium 141 mmol/L (136-145); Total Protein 6.4 g/dL (6.4-8.2)
--- NOTE | 2025-01-28 07:36 | P.PN_ITS ---
Progress Note: Subjective Subjective Interval history: Patient still still significant dyspnea with ambulation and tightness in his abdomen and lower extremities Exam Constitutional Vital Signs, click to edit/add: Last Vital Signs Temp 98.8 F 01/28/25 05:11 Pulse 68 01/28/25 06:00 Resp 20 01/28/25 05:11 BP 97/57 01/28/25 05:11 Pulse Ox 86 L 01/28/25 05:11 O2 Del Method CPAP 01/28/25 05:11 O2 Flow Rate 7 01/28/25 05:11 Documenting provider has reviewed patient's vital signs: yes Common normals: no apparent distress (Respiratory distress appears improved) HENMT Other: Some swelling under her eyes but not like his previous Respiratory Common normals: normal respiratory effort (Respiratory distress seems improved) and no retractions Auscultation: rales (Improved) Cardio Common normals: regular rate, regular rhythm, S1 normal heart sound, S2 normal heart sound and no murmurs GI Common normals: soft to palpation; negative for Normal to inspection, nondistended, normoactive bowel sounds present (Obese, distended) Extremity Common normals: abnormal to inspection (3+ edema-persistent) Progress Note: Objective Labs Labs: Short CBC 01/28/25 Range/Units 05:09 WBC 9.0 (4.0-11.0) 10^3/uL Hgb 13.7 L (14.0-18.0) g/dL Hct 43.0 (42.0-54.0) % Plt Count 384 (150-450) 10^3/uL BMP 01/28/25 05:09 Sodium 141 Potassium 4.0 Chloride 99 Carbon Dioxide 40.5 H BUN 22.0 H Creatinine 1.22 Glucose 100 Calcium 8.7 Liver Function 01/28/25 Range/Units 05:09 Total Bilirubin 0.8 (0.2-1.0) mg/dL AST 19 (15-37) U/L ALT 26 (16-63) U/L Alkaline Phosphatase 115 (46-116) U/L Albumin 3.0 L (3.4-5.0) g/dL Progress Note: A&P Assessment and Plan (1) Chest pain: (2) Leg edema: (3) Acute CHF (congestive heart failure): (4) Acute combined systolic (congestive) and diastolic (congestive) heart failure: (5) Hypoxia: (6) Pulmonary hypertension: (7) Hypertensive urgency: (8) Sleep apnea: Plan Admission findings: Uncontrolled hypertension leading to hypertensive urgency resulting in acute combined congestive heart failure with weight gain of 15 pounds and acute hypoxic with O2 sat of 84% Acute hypoxia secondary to hypertensive urgency resulting in acute combined congestive heart failure-blood pressure better this morning, did not diurese significantly overnight, will start patient on Bumex drip today, initial admission for this in August 2024 he diuresed 35 L-good diuresis yesterday of 6-1/2 L, net so far 7.5, needs further diuresis as he continues to have significant hypoxia at at bedtime, and significant hypoxia during the day requiring 4 L, he does not wear his 4 L continuously at home, BNP still elevated but improved Hypertensive urgency-increase Entresto-blood pressure somewhat labile continue current medications Severe pulmonary hypertension-maintain low blood pressure systemically Sleep apnea-feeling on his CPAP still currently with O2 sats in the mid 80s despite bleeding and several liters of supplemental oxygen, this is likely secondary to the above, if further diuresis is needed Admission status: Patient with severe episode of hypertensive urgency resulting in acute combined congestive heart failure with weight gain of 15 pounds, medically necessary treatment will span 2 midnights. Inpatient status ?
--- NOTE | 2025-01-28 08:39 | PC.NURSE ---
Blood Pressure rechecked with manual cuff. Results were similar at 100/62.
[2025-01-28] MEDS: BUMETANIDE 10 MG in 0.9 % SODIUM CHLORIDE 160 ML 20 MG IV (08:56)
--- NOTE | 2025-01-28 09:10 | PC.NURSE ---
Timing Adjuster in room with patient at this time because pulse ox monitor showed 79%. Upon entering room patient's home CPAP was on correctly with 7 LPM bled into mask and patient was sleeping. Timing Adjuster woke patient up and switched over to the nasal cannula at 4LPM. While awake patient is maintain 88-91% on the 4LPM however patient will start to doze off mid conversation and drop into the 70% on the oxygen. Timing Adjuster called respiratory to bring in house CPAP machine for patient to utilize because patient is agreeable at this time. Respiratory stated they would be up eventually.
[2025-01-28 09:49] LABS: pH ABG 7.325 (7.350-7.450)
[2025-01-28 09:50] LABS: Allen Test POSITIVE (POSITIVE); Base Excess ABG 16.5 mmol/L (-2.0-2.0); HCO3 ABG 42.5 mmol/L (22.0-26.0); Liters per Minute 4; O2 Mode NC; Oxygen Saturation ABG 93.7 %; PO2 ABG 71.4 mmHg (80.0-100.0); Puncture Site RR
[2025-01-28 09:52] LABS: ABG PCO2 81.5 mmHg (35.0-45.0)
--- NOTE | 2025-01-28 15:10 | SWNOTE1 ---
Pt had requested information on disability. SW stopped in, but pt was sleeping with pap on. SW left phone numbers for social security administration offices that pt will need to call to get further information.
--- NOTE | 2025-01-28 15:43 | SWNOTE1 ---
SW stopped back in room. Pt was awake sitting at edge of bed. He did get the paperwork with Social security office numbers on it. He asked what SW recommends, if he should complete it online or go to office. SW recommended calling or going in to the Social Security Admin office as they will guide you on what to do. No further questions at this time.
[2025-01-28] MEDS: METOPROLOL TARTRATE 25 MG TABLET 75 MG PO (20:17)
[2025-01-28] MEDS: SACUBITRIL/VALSARTAN 24 MG-26 MG TABLET 2 TAB PO (20:17)
[2025-01-29] VITALS (10 sets, daily range): BP systolic 105–114; BP diastolic 64–78; PULSE 69–84; RESP 16; TEMP 37.2; O2SAT 89–95; BMI 39.5
--- NOTE | 2025-01-29 02:58 | PC.NURSE ---
0230 pt switched over from nasal cannula to his home CPAP. at 0248 pt oxygen saturation dropped from 95% to 76%. RN in room to assist. RN switched patient from CPAP to BiPAP and oxygen saturation came up to 97%. Pt denies any other needs at this time.
[2025-01-29 05:59] LABS: Basophils Absolute Auto 0.1 10^3/uL (0.0-0.1); Basophils Percent Auto 0.9 % (0.2-2.0); Eosinophils Absolute Auto 0.3 10^3/uL (0.0-0.7); Eosinophils Percent Auto 4.2 % (0.9-7.0); Hemoglobin 14.1 g/dL (14.0-18.0); Immature Granulocytes Abs Auto 0.02 10^3/uL (0.00-0.03); Immature Granulocytes Pct Auto 0.2 % (0.0-0.5); Lymphocytes Absolute Auto 1.2 10^3/uL (1.2-3.8); Lymphocytes Percent Auto 14.8 % (20.5-60.0); Mean Corpuscular HGB Conc 31.3 g/dL (29.9-35.2); Mean Corpuscular Hemoglobin 30.1 pg (25.9-34.0); Mean Corpuscular Volume 95.9 fL (80.0-94.0); Mean Platelet Volume 10.3 fL (9.5-13.5); Monocytes Percent Auto 12.8 % (1.7-12.0); Neutrophils Absolute Auto 5.4 10^3/uL (1.4-6.5); Neutrophils Percent Auto 67.1 % (43.0-75.0); Platelet Count 384 10^3/uL (150-450); Red Blood Count 4.69 10^6/uL (4.70-6.10); Red Cell Distribution Width 13.5 % (11.0-15.0); White Blood Count 8.1 10^3/uL (4.0-11.0)
[2025-01-29 06:17] LABS: Alanine Aminotransferase 16 U/L (16-63); Albumin Globulin Ratio 0.9; Alkaline Phosphatase 107 U/L (46-116); Anion Gap 5.3; Aspartate Amino Transferase 20 U/L (15-37); Calcium 8.5 mg/dL (8.5-10.1); Carbon Dioxide 42.5 mmol/L (21.0-32.0); Chloride 95 mmol/L (98-107); Estimated GFR (African America >60 (>=60 mL/min/1.73m^2); Estimated GFR (Non-African Ame >60 (>=60 mL/min/1.73m^2); Globulin 3.4 g/dL; Glucose 76 mg/dL (74-106); Potassium 3.8 mmol/L (3.5-5.1); Sodium 139 mmol/L (136-145); Total Protein 6.4 g/dL (6.4-8.2)
--- NOTE | 2025-01-29 07:40 | P.DS_ITS ---
DS: Providers Provider Date of admission: 01/27/25 08:37 Primary care physician: Mike Zavala MD Consults: 01/27/25 07:27 Consult to Pharmacy Routine Consulting Provider: Reason for consultation: Please [place] me when Med Rec is Updated Has provider been notified: No DS: Diagnosis Discharge Diagnosis (1) Chest pain: (2) Leg edema: (3) Acute CHF (congestive heart failure): (4) Acute combined systolic (congestive) and diastolic (congestive) heart failure: (5) Hypoxia: (6) Pulmonary hypertension: (7) Hypertensive urgency: (8) Sleep apnea: (9) Morbid obesity: (10) Chronic respiratory failure with hypoxia: Plan Admission findings: Uncontrolled hypertension leading to hypertensive urgency resulting in acute combined congestive heart failure with weight gain of 15 pounds and acute hypoxic with O2 sat of 84% Acute hypoxia secondary to hypertensive urgency resulting in acute combined congestive heart failure and complicated by chronic hypoxic respiratory failure, patient wearing 4 L at home-patient diuresed a net of 10 L, BNP returned to normal Hypertensive urgency-increase Entresto-stable Severe pulmonary hypertension-see above Sleep apnea-CPAP was adjusted, will set up with outpatient pulmonology Admission status: Patient with severe episode of hypertensive urgency resulting in acute combined congestive heart failure with weight gain of 15 pounds, medically necessary treatment will span 2 midnights. Inpatient status ? DS: Summary Hospital Course Hospital Course: Presented emergency with increasing shortness of breath, found to have acute combined congestive heart failure secondary to hypertensive urgency and complicated by poorly controlled sleep apnea, with resultant hypoxia with O2 sat in the low 80s, with sleep will go down to the 70s despite bleeding from his CPAP. Did do better with our machine here will have his machine adjusted today, from congestive heart failure standpoint he diuresed a net of 10 L, 15 L total diuresed, still has some peripheral edema but that is probably closer to his baseline, creatinine remained the same throughout the hospitalization despite the aggressive diuresis, at this point he is close to his baseline so we will discharge patient home in improving condition. Medications see list. Follow-up with me next week, follow-up with pulmonology for adjustment in his CPAP Time Spent with Patient Time attestation: Total time spent providing and/or coordinating discharge services: Exam Constitutional Vital Signs, click to edit/add: Last Vital Signs Temp 98.2 F 01/28/25 19:41 Pulse 73 01/29/25 06:00 Resp 16 01/29/25 04:00 BP 105/64 01/29/25 04:00 Pulse Ox 91 L 01/29/25 06:00 O2 Del Method BIPAP 01/29/25 04:00 O2 Flow Rate 40 01/29/25 04:00 FiO2 40 01/29/25 03:49 Documenting provider has reviewed patient's vital signs: yes Common normals: no apparent distress Chest Common normals: inspection of chest normal Respiratory Common normals: normal respiratory effort and no retractions Auscultation: no rales Cardio Common normals: regular rate and regular rhythm GI Common normals: negative for Normal to inspection, nondistended, normoactive bowel sounds present (Morbid obesity) Extremity Common normals: abnormal to inspection (2+ edema, is close to his baseline) DS: Data Data Completed and Pending Labs on day of discharge: Labs from last 24 hours 01/29/25 01/28/25 05:20 09:37 WBC 8.1 RBC 4.69 L Hgb 14.1 Hct 45.0 MCV 95.9 H MCH 30.1 MCHC 31.3 RDW 13.5 Plt Count 384 MPV 10.3 Neut % (Auto) 67.1 Lymph % (Auto) 14.8 L [place] % (Auto) 12.8 H Eos % (Auto) 4.2 Baso % (Auto) 0.9 Neut # (Auto) 5.4 Lymph # (Auto) 1.2 [place] # (Auto) 1.0 H Eos # (Auto) 0.3 Baso # (Auto) 0.1 Abs Immat Gran (auto) 0.02 Imm/Tot Granulo (auto) 0.2 Puncture Site Rr ABG pH 7.325 L ABG pCO2 81.5 H* ABG pO2 71.4 L ABG HCO3 42.5 H ABG O2 Saturation 93.7 ABG Base Excess 16.5 H [place] Test Positive O2 Liters/Min 4 Sodium 139 Potassium 3.8 Chloride 95 L Carbon Dioxide 42.5 H Anion Gap 5.3 BUN 18.0 Creatinine 0.82 Est GFR ( Amer) >60 Est GFR (Non-Af Amer) >60 BUN/Creatinine Ratio 22.0 Glucose 76 Calcium 8.5 Total Bilirubin 1.0 AST 20 ALT 16 Alkaline Phosphatase 107 NT-Pro-B Natriuret Pep 872.0 Total Protein 6.4 Albumin 3.0 L Globulin 3.4 Albumin/Globulin Ratio 0.9 Discharge Plan Discharge Disposition: Home, Self-Care Discharge Medications: New Entresto 49-51 mg tablet 1 tab PO BID Qty: 60 11RF Continued metoprolol tartrate 75 mg tablet 75 mg PO BID Qty: 60 11RF hydralazine 100 mg tablet 100 mg PO BID Qty: 60 11RF bumetanide 1 mg tablet 1 mg PO DAILY Qty: 30 11RF isosorbide mononitrate 60 mg tablet extended release 24 hr 60 mg PO DAILY Qty: 30 11RF spironolactone 25 mg Tablet 25 mg PO QD Qty: 30 11RF Entresto 24-26 mg Tablet 1 tab PO BID Qty: 60 11RF Print Language: Polish Forms: Portal Instructions
[2025-01-29] MEDS: ISOSORBIDE MONONITRATE 60 MG TAB.ER.24H PO (08:20)
[2025-01-29] MEDS: SPIRONOLACTONE 25 MG TABLET PO (08:20)
[2025-01-29] MEDS: METOPROLOL TARTRATE 25 MG TABLET 75 MG PO (08:20)
[2025-01-29] MEDS: SACUBITRIL/VALSARTAN 24 MG-26 MG TABLET 2 TAB PO (08:20)
[2025-01-29] MEDS: ACETAMINOPHEN 500 MG TABLET 1000 MG PO (08:24)
--- NOTE | 2025-02-01 11:26 | CM.DCFOLLOWU ---
02/01- 1st attempt. No answer
--- NOTE | 2025-02-03 15:20 | CM.DCFOLLOWU ---
02/03- 3rd attempt. No answer
== END 2025-01-29 12:32 | disposition home or self-care (01) | DRG 291 ==
LOC: ER 17:20 → MS 19:17
PROVIDERS: Family Medicine; Admitting Provider Family Medicine; Emergency Provider Emergency Medicine; PCP Family Medicine; Visit Provider Family Medicine
DX: I11.0 Hypertensive heart disease with heart failure (principal); I50.33 Acute on chronic diastolic (congestive) heart failure; J96.11 Chronic respiratory failure with hypoxia; I16.0 Hypertensive urgency; E66.01 Morbid (severe) obesity due to excess calories; G47.30 Sleep apnea, unspecified; Z68.39 Body mass index [BMI] 39.0-39.9, adult; J44.9 Chronic obstructive pulmonary disease, unspecified; I27.20 Pulmonary hypertension, unspecified; Z99.81 Dependence on supplemental oxygen; Z79.899 Other long term (current) drug therapy; Z87.891 Personal history of nicotine dependence
CPT/HCPCS: 36415; 36600; 71045; 80053; 82805; 83880; 84484; 85025; 93005; 94660; 94667; 94668; 94761; 96374; 96375; 99285; G0378; J0360; J1938